=== PATIENT | female | born 1955 | race Caucasian/White ===

== ENCOUNTER → 2020-04-14 09:18 | Outpatient (CLI) | payer MEDICARE, SELFPAY ==
--- NOTE | ~2020-04-14 | MM_ITS ---
EXAMINATION: MM screening [facility] BI w fatmata HISTORY: Screening mammogram TECHNIQUE: Craniocaudal and mediolateral oblique 3-D tomosynthesis images were obtained and synthetic 2-D images were generated. CAD analysis was submitted and interpreted. COMPARISON: Comparison to multiple prior studies sequentially, with oldest reviewed study dated 02/02. BREAST PARENCHYMAL COMPOSITION: There are scattered areas of fibroglandular density. FINDINGS: There is no evidence of suspicious mass, calcification, or architectural distortion to sugg est malignancy in either breast. There has been no suspicious interval change. IMPRESSION: 1. No mammographic evidence of malignancy. 2. Recommend routine screening mammography in one year. BI-RADS Category 1: Negative Reviewed, dictated and finalized at location A.
== END ==
PROVIDERS: PCP Internal Medicine; Visit Provider Obstetrics & Gynecology
DX: Z12.31 Encounter for screening mammogram for malignant neoplasm of breast (principal)
CPT/HCPCS: 77063; 77067

== ENCOUNTER 2020-04-24 08:26 | Outpatient (CLI) | payer MEDICARE, SELFPAY ==
--- NOTE | 2020-04-24 | ECG_ITS ---
Measurements Intervals [place] Rate: 73 P: 53 WI: 152 QRS: -46 QRSD: 115 T: 90 QT: 395 QTc: 438 Interpretive Statements SINUS RHYTHM ATRIAL PREMATURE COMPLEX LEFT AXIS DEVIATION INCOMPLETE LEFT BUNDLE BRANCH BLOCK ANTEROSEPTAL INFARCT, AGE INDETERMINATE BORDERLINE ST-T WAVE ABNORMALITY- HIGH LATERAL LEADS BASELINE WANDER- V3 ABNORMAL ECG Electronically Signed On 04-24-2020 9:57:44 CDT by Tyson Jason D.O.
== END 2020-04-24 08:27 | disposition home or self-care (01) ==
PROVIDERS: PCP Internal Medicine; Visit Provider Internal Medicine
DX: I44.7 Left bundle-branch block, unspecified (principal)
CPT/HCPCS: 93005

== ENCOUNTER 2020-07-10 08:30 | Outpatient (CLI) | payer MEDICARE, SELFPAY ==
--- NOTE | 2020-07-10 | EST_ITS ---
Patient Info Name: Lisy Leal Age: 65 years : 1955 Gender: Female Ht: 63 in Wt: 125 lbs BSA: 1.59 m2 HR: 67 bpm BP: 128 / 68 mmHg Heart Rhythm: Sinus Rhythm Exam Date: 07/10/2020 11:42 AM Exam Location: [facility] Patient Status: Outpatient Admit Date: 07/10/2020 Staff Ordering Physician: Tyson Jason DO Braille Teacher: Kirill Weathers RDCS, RT Attending Provider: Tyson Jason DO Exercise Technologist: Hallie Melendez RDCS Exercise Physician: Tyson Jason DO Exam Type: CA stress echo Study Info Indications R55 - Syncope and collapse Treadmill exercise stress echocardiogram is performed. Summary 1. 1. Inconclusive Elpidio exercise stress test for ischemic ST changes by ECG criteria due to baseline LBBB. 2. 2. Good functional capacity, achieving 8 METs of workload. 3. 3. Appropriate HR response to exercise. 4. 4. Appropriate HR recovery at 1 minute post exercise. 5. 5. Negative stress echocardiogram for ischemia by wall motion analysis. 6. 6. Patient informed of the above results. Stress Echo Findings Left Ventricle Appropriate increase in LV endocardial thickening with systole. Appropriate augmentation of contractility with systole. No wall motion abnormality. Left Ventricle Normal LV systolic function, paradoxical septal motion due to LBBB. Protocol: Elpidio Rest HR: 67 bpm Peak HR: 154 bpm Rest Sys BP: 128 mmHg Peak Sys BP: 171 mmHg Max Pred HR: 154 bpm % Max Pred HR: 100 % Target HR: 131 bpm Max RPP: 26,334 bpm*mmHg Termination Reason: Reached target heart rate or workload Cardiac Symptoms: Shortness of breath Total Time: 7 min : 0 sec Rest Mueller BP: 68 mmHg Peak Mueller BP: 86 mmHg Resting ECG Sinus rhythm, LBBB. Stress ECG No ST changes. Arrhythmias None. Report Signatures Stress ECG Echo
--- NOTE | 2020-07-10 08:43 | ECHO_ITS ---
Patient Info Name: Lisy Leal Age: 65 years : 1955 Gender: Female Ht: 63 in Wt: 135 lbs BSA: 1.66 m2 BP: 143 / 93 mmHg Heart Rhythm: Sinus Rhythm Exam Date: 07/10/2020 10:19 AM Exam Location: [facility] Patient Status: Outpatient Admit Date: 07/10/2020 Staff Ordering Physician: Tyson Jason DO Hand Cementer: Marisa Mason RDCS Attending Provider: Tyson Jason DO Exam Type: CA echo doppler color flow Study Info Complete two-dimensional, color flow and Doppler transthoracic echocardiogram is performed. Summary 1. Left ventricular chamber dimension is normal. 2. Left ventricular systolic function is normal, estimated at 60-65%. 3. Left ventricular septal wall motion is abnormal with septal motion related to bundle branch block. 4. The left ventricular diastolic function is grade I diastolic dysfunction. 5. E/e' 14 is mildly elevated. 6. The mitral valve has mildly calcified annulus. 7. No pulmonary hypertension, estimated pulmonary arterial systolic pressure is 22 mmHg. 8. There is trace pulmonic regurgitation. Left Ventricle E/e' 14 is mildly elevated. Left ventricular chamber dimension is normal. Left ventricular systolic function is normal, estimated at 60-65%. Left ventricular septal wall motion is abnormal with septal motion related to bundle branch block. The left ventricular diastolic function is grade I diastolic dysfunction. Right Ventricle Right ventricular chamber dimension is normal. Right ventricular systolic function is normal. Left Atria Left atrial chamber dimension is normal. Right Atria Right atrial chamber dimension is normal. Aortic Valve The aortic valve is trileaflet. There is no aortic valve stenosis. There is no aortic valve regurgitation. Pulmonic Valve There is trace pulmonic regurgitation. Mitral Valve The mitral valve has mildly calcified annulus. There is no mitral valve stenosis. There is no mitral valve regurgitation. Tricuspid Valve There is no tricuspid valve regurgitation. No pulmonary hypertension, estimated pulmonary arterial systolic pressure is 22 mmHg. Pericardium/Pleural There is no pericardial effusion. Inferior Vena Cava Normal inferior vena cava with >50% collapse upon inspiration consistent with normal right atrial pressure, 5 mmHg. Aorta The aortic root size at the sinus of Valsalva is normal. Left Ventricular Outflow Tract Name Value Normal LVOT 2D LVOT Diameter 2.0 cm LVOT Doppler LVOT Peak Gradient 3 mmHg LVOT Mean Gradient 2 mmHg LVOT VTI 18 cm LVOT VTI/AV VTI Ratio 0.8 LVOT Stroke Volume 52 ml LVOT CO 3.6 l/min LVOT CI 2.2 l/min/m2 Mitral Valve Name Value Normal MV Doppler
== END 2020-07-10 08:31 | disposition home or self-care (01) ==
LOC: ANHCARD 08:33
PROVIDERS: PCP Internal Medicine; Visit Provider Internal Medicine Cardiovascular Disease
DX: R55 Syncope and collapse (principal)
CPT/HCPCS: 93306; 93351

== ENCOUNTER 2020-11-24 11:00 | Outpatient (RCR) | payer MEDICARE, SELFPAY ==
--- NOTE | 2020-10-27 10:20 | PTOPEVAL ---
PHYSICAL THERAPY EVALUATION AND PLAN OF CARE 10-27-2020 Thank you for referring Lisy Leal to [facility] [place] [facility] [place] She is scheduled to be seen for therapy? 1-2x/week for 4 weeks. Please review, sign, date and return this plan of care JAMILA. I agree with and certify that the following plan of care is medically necessary. Referring Physician Date Attending Provider: Ren Riggins PA-C *PT Outpatient Evaluation Start: 10/27/20 09:06 Document 10/27/20 09:06 PRADIP (Rec: 10/27/20 10:19 PRADIP [id number]) Outpatient Past Medical History Past Medical History Source of Past Medical History Patient Neurological History Hx Neurological Disorders No Significant History Cardiovascular History Hx Hypertension Yes: on meds Hx Other Cardiac Disorders Yes: passed out 3x- EKG,stress test,treadmill test negative Respiratory History Hx Other Respiratory Disorders Yes: sinus issues- seasonal allergies; Gastrointestinal History Hx Other Gastrointestinal Disorders Yes: take daily meds for constipation Genitourinary History Hx Genitourinary Disorders No Significant History Musculoskeletal History Hx Back Pain Yes: lumbar bulging disc Hematological History Hx Hematological Disorders No Significant History Endocrine History Hx Hypothyroidism Yes: meds HEENT History Hx Other HEENT Disorders Yes: tinnitis B ears > 20 yrs; L high pitch sqeal in ear Evaluation Information Problem Diagnosis vertigo Onset Sep 28, 2020 Subjective Information onset without incident Query Text:As Reported By Patient/ Family Prior Level of Function Activity Level (Last 3 Months) 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 Home supplements- fish oil, vit D Meds Must Be Re-entered With Each Visit. magnesium, garlic, multi vitamin, aspirin, tumeric, Home Setting Home Type House Living Situation
--- NOTE | 2020-11-24 11:43 | PTOPEVAL ---
PHYSICAL THERAPY DISCHARGE 11-24-20 Mrs. Leal has improved and the PT goals were achieved; Refer to the clinical summary below for a comparison to the initial evaluation. Discharge PT services. Thank you for referring Lisy Leal to [facility].? Please review, sign, date and return this discharge JAMILA. I agree with and certify that the following plan of care is medically necessary. Referring Physician Date Attending Provider: Ren Riggins PA-C PT Outpatient Discharge Document 11/24/20 11:05 PRADIP (Rec: 11/24/20 11:43 PRADIP [id number]) Subjective Information Lisy reports: feeling is Query Text:As Reported By Patient/ lightheaded, no longer have Family dizzy spells; over the weekend , reaching up overhead to cabinet with looking up had lightheadedness; doing Loaiza Daroff at home; continues to have allergy and sinus issues- when wake up in the morning, cough, sneeze and nasal congestion; to talk to pharmacist about over the counter med to manage the symptoms; does better if move slower; has less ringing in her L ear after do the maneuver; has learned to move her head slower, allow for head to clear when get up and more aware of it; has used her inversion table for her back 2x and did not have any problems. Dizziness Handicap Index score of 10; Pain Assessment Timing of Pain Assessment Timing of Pain Assessment Assessment Self Report Self Report Pain Level 0 Pain Score Pain Score 0: Self Report Vestibular Evaluation Vestibular Testing Vestibular Testing Comments picking an item up off floor no s/s standing and looking up to the ceiling no s/s 360' turn to R /L- no s/s supine to sit postion change no s/s, but reports sometimes it does bother her, first thing in the morning; walking with ball in B UE 25': head and eye movements: up/ down, R/L and diagonal; ball
== END 2020-11-24 14:36 | disposition home or self-care (01) ==
LOC: ANHPT 11:00
PROVIDERS: PCP Internal Medicine; Visit Provider Physician Assistant
DX: R42 Dizziness and giddiness (principal)
CPT/HCPCS: 97110; 97161

== ENCOUNTER → 2021-04-16 10:04 | Outpatient (CLI) | payer MEDICARE, SELFPAY ==
--- NOTE | ~2021-04-16 | MM_ITS ---
EXAMINATION: MM screening [facility] BI w fatmata HISTORY: Screening TECHNIQUE: Craniocaudal and mediolateral oblique 3-D tomosynthesis images were obtained and synthetic 2-D images were generated. CAD analysis was submitted and interpreted. COMPARISON: Comparison to multiple prior studies sequentially, with oldest reviewed study dated 11/2014. BREAST PARENCHYMAL COMPOSITION: There are scattered areas of fibroglandular density. FINDINGS: There is no evidence of suspicious mass, calcification, or architectural distortion to sugg est malignancy in either breast. There has been no suspicious interval change. IMPRESSION: 1. No mammographic evidence of malignancy. 2. Recommend routine screening mammography in one year. BI-RADS Category 1: Negative Reviewed, dictated and finalized at location A.
== END ==
DX: Z12.31 Encounter for screening mammogram for malignant neoplasm of breast (principal)
CPT/HCPCS: 77063; 77067

== ENCOUNTER 2022-02-08 10:27 | Outpatient (CLI) | payer MEDICARE, SELFPAY ==
--- NOTE | ~2022-02-08 | XR_ITS ---
XR lumbar spine 6V w bending DATE: 02/08/2022 10:50 INDICATION: Low back pain, bilateral leg burning TECHNIQUE: Flexion and extension lateral views. AP, lateral, bilateral oblique and coned lateral lumb osacral views COMPARISON: None FINDINGS: Incidentally noted are multiple faceted calcified gallstones overlying the right upper quad rant. There is mild dextroscoliosis of the lower thoracic and upper lumbar spine. There is mild to moderate degenerative disc disease at L2-3, mild degenerative disease at L3-4 and mo derately severe degenerative disc disease at L5-S1. There is degenerative change at the apophyseal joints with associated minimal grade 1 anterolisthesis at L4-5. No spondylolysis. No fracture or bone destruction. The included lower thoracic and lumbar pedicles are intact. The sacroiliac joints are intact. IMPRESSION: Multilevel degenerative disc disease, most pronounced at L5-S1 Degenerative change at the apophyseal joints, with associated grade 1 anterolisthesis at L4-5, stable in flexion and extension Cholelithiasis Reviewed, dictated and finalized at location A. IMPRESSION: Multilevel degenerative disc disease, most pronounced at L5-S1 Degenerative change at the apophyseal joints, with associated grade 1 anterolis thesis at L4-5, stable in flexion and extension Cholelithiasis
== END 2022-02-08 10:28 | disposition home or self-care (01) ==
LOC: ANHIMG 10:33
PROVIDERS: PCP Internal Medicine; Visit Provider Physician Assistant
DX: K80.20 Calculus of gallbladder without cholecystitis without obstruction (principal); M51.37 Other intervertebral disc degeneration, lumbosacral region
CPT/HCPCS: 72114

== ENCOUNTER → 2022-02-17 09:31 | Outpatient (CLI) | payer MEDICARE, SELFPAY ==
--- NOTE | ~2022-02-17 | MR_ITS ---
EXAMINATION: MR lumbar spine wo con DATE: 02/17/2022 10:39 INDICATION: Sciatic, unspecified side. TECHNIQUE: Magnetic resonance imaging (MRI) of the lumbar spine was performed without intravenous con trast. Sequences included sagittal T2-weighted FSE, sagittal T2-weighted FS FSE, sagittal T1-weighted FSE, and axial T2-weighted FSE. COMPARISON: Lumbar spine radiographs 02/08/2022, lumbar spine MRI 05/17/2009 FINDINGS: There is 8 degrees levocurvature of lumbar spine. There is mild chronic anterior wedging of T11-L1 vertebral bodies. There is 3 mm anterolisthesis of L4 on L5. There is moderately decreased di sc height at T11-T12, mildly decreased disc height at T12-L1, and moderately decreased disc height at L2-L3 and L5-S1 with endplate remodeling. The distal spinal cord signal intensity is normal. The con us medullaris is at L1. The following disc levels are specifically discussed: L1-L2: The disc is bulging. There is mild bilateral facet joint osteoarthritis. There is mild bilater al neural foraminal stenosis. There is mild central canal stenosis. L2-L3: The disc is bulging. There is mild bilateral facet joint osteoarthritis. There is mild bilater al neural foraminal stenosis. There is mild central canal stenosis. L3-L4: The disc is bulging and has an annular fissure. There is mild bilateral facet joint osteoarthr itis. There is mild bilateral neural foraminal stenosis. There is mild central canal stenosis. L4-L5: The disc is bulging. There is severe bilateral facet joint osteoarthritis. There is mild bilat eral neural foraminal stenosis. There is mild central canal stenosis. L5-S1: The disc is bulging and has an annular fissure. There is moderate bilateral facet joint osteoa rthritis. There is mild right and moderate left neural foraminal stenosis. There is mild central fatou l stenosis. IMPRESSION: 1. Moderate lumbar spondylosis, worsened from 05/17/2009. Reviewed, dictated and finalized at location B.
== END ==
PROVIDERS: PCP Internal Medicine; Visit Provider Physician Assistant
DX: M47.817 Spondylosis without myelopathy or radiculopathy, lumbosacral region (principal); M48.07 Spinal stenosis, lumbosacral region; M54.30 Sciatica, unspecified side
CPT/HCPCS: 72148

== ENCOUNTER → 2022-05-03 10:49 | Outpatient (CLI) | payer MEDICARE, SELFPAY ==
--- NOTE | ~2022-05-03 | MM_ITS ---
EXAMINATION: MM screening [facility] BI w fatmata HISTORY: Screening TECHNIQUE: Craniocaudal and mediolateral oblique 3-D tomosynthesis images were obtained and synthetic 2-D images were generated. CAD analysis was submitted and interpreted. COMPARISON: Comparison to multiple prior studies sequentially, with oldest reviewed study dated 04/2016. BREAST PARENCHYMAL COMPOSITION: There are scattered areas of fibroglandular density. FINDINGS: There is no evidence of suspicious mass, calcification, or architectural distortion to sugg est malignancy in either breast. There has been no suspicious interval change. IMPRESSION: 1. No mammographic evidence of malignancy. 2. Recommend routine screening mammography in one year. BI-RADS Category 1: Negative Reviewed, dictated and finalized at location A.
== END ==
PROVIDERS: PCP Internal Medicine
DX: Z12.31 Encounter for screening mammogram for malignant neoplasm of breast (principal)
CPT/HCPCS: 77063; 77067

== ENCOUNTER → 2023-05-05 10:06 | Outpatient (CLI) | payer MEDICARE, SELFPAY ==
--- NOTE | ~2023-05-05 | MM_ITS ---
EXAMINATION: MM screening [facility] BI w fatmata HISTORY: Screening TECHNIQUE: Craniocaudal and mediolateral oblique 3-D tomosynthesis images were obtained and synthetic 2-D images were generated. CAD analysis was submitted and interpreted. COMPARISON: Comparison to multiple prior studies sequentially, with oldest reviewed study dated 02/26. BREAST PARENCHYMAL COMPOSITION: Breast composed of scattered areas of fibroglandular density FINDINGS: There is no evidence of suspicious mass, calcification, or architectural distortion to sugg est malignancy in either breast. There has been no suspicious interval change. IMPRESSION: 1. No mammographic evidence of malignancy. 2. Recommend routine screening mammography in one year. BI-RADS Category 1: Negative Reviewed, dictated and finalized at location A.
== END ==
PROVIDERS: PCP Internal Medicine
DX: Z12.31 Encounter for screening mammogram for malignant neoplasm of breast (principal)
CPT/HCPCS: 77063; 77067

== ENCOUNTER → 2023-08-16 14:57 | Outpatient (CLI) | payer MEDICARE, SELFPAY ==
--- NOTE | ~2023-08-16 | XR_ITS ---
XR knee RT 3V 08/16/2023 15:16 Indication: Right knee pain Procedure: 3 views right knee Comparison: No prior studies for comparison. Findings: There is anatomic alignment. No fracture, subluxation or dislocation. Mild patellofemoral c ompartment osteoarthritis. Small joint effusion. Impression: 1: Mild patellofemoral compartment osteoarthritis. Reviewed, dictated and finalized at location A. Impression: 1: Mild patellofemoral compartment osteoarthritis.
== END ==
PROVIDERS: PCP Physician Assistant; Visit Provider Physician Assistant
DX: M17.11 Unilateral primary osteoarthritis, right knee (principal)
CPT/HCPCS: 73562

== ENCOUNTER 2024-04-14 10:24 | Emergency (ER) | payer MEDICARE, SELFPAY ==
--- NOTE | 2024-04-14 10:38 | ED.GENADULT ---
HPI - General Adult General Chief complaint: Extremity Problem,Nontraumatic Stated complaint: left side shoulder pain into neck Time Seen by Provider: 04/14/24 10:40 Source: patient, RN notes reviewed and old records reviewed Mode of arrival: ambulatory Limitations: no limitations History of Present Illness HPI narrative: Patient presents today requesting a refill of Flexeril. She reports that she had a pacemaker placed earlier this month, is now in cardiac rehab. She reports that she has been having some muscle spasms to the right neck and shoulder. She states that she went to her crew mess attendant earlier this week, she reports that he told her she could take Flexeril. She had 6 pills at home, she reports that her crew mess attendant declined to refill this for her during her visit. She is requesting that I refill this medication today. She reports that is the reason she came in ?to get a refill? Related Data Home Medications Medication Instructions Recorded Confirmed estradiol-norethindrone acet 1 1 tablet PO DAILY 06/17/20 04/14/24 mg-0.5 mg tablet aspirin 81 mg tablet,delayed 81 mg PO DAILY 04/27/21 04/14/24 release (Adult Low Dose Aspirin) diphenhydramine HCl 25 mg capsule 25 mg PO QHS 04/27/21 04/14/24 (Allergy (diphenhydramine)) garlic 1,000 mg capsule 1,000 mg PO DAILY 04/27/21 04/14/24 [id number] 200 1 tablet PO DAILY 04/27/21 04/14/24 mg-biotin 450 mcg-vit D3 400 unit-FA tablet (Biotin Plus-Calcium and Vit D3) multivitamin 1 tablet PO DAILY 04/27/21 04/14/24 omega-3 fatty acids 1,000 mg 1,000 mg PO DAILY 04/27/21 04/14/24 capsule (Fish Oil Concentrate) polyethylene glycol 3350 17 17 g PO DAILY 04/27/21 04/14/24 gram/dose oral powder (SmoothLax) mecobalamin (vitamin B12) 1,000 1,000 mcg PO DAILY 11/05/22 04/14/24 mcg chewable tablet pyridoxine (vitamin B6) 100 mg 50 mg PO DAILY 11/05/22 04/14/24 tablet gabapentin 600 mg tablet 900 mg PO DAILY 06/22/23 04/14/24 turmeric 400 mg capsule 720 mg PO DAILY 06/22/23 04/14/24 apixaban 5 mg tablet (Eliquis) 5 mg PO BID 04/14/24 04/14/24 clopidogrel 75 mg tablet 75 mg PO DAILY 04/14/24 04/14/24 metoprolol succinate 25 mg 25 mg PO DAILY 04/14/24 04/14/24 tablet,extended release 24 hr rosuvastatin 40 mg tablet 40 mg PO HS 04/14/24 04/14/24 spironolactone 25 mg tablet 12.5 mg PO DAILY 04/14/24 04/14/24 Allergies Allergy/AdvReac Type Severity Reaction Status Date / Time ciprofloxacin Allergy Unknown unknown Verified 04/14/24 10:27 diphenhydramine Allergy Unknown unknown Verified 04/14/24 10:27 metronidazole Allergy Unknown unknown Verified 04/14/24 10:27 Review of Systems Review of Systems: All systems reviewed & are unremarkable except as noted in HPI and below Constitutional: Constitutional: Reports no additional constitutional complaints ENT: Reports system reviewed and no additional complaints, except as documented Cardiovascular: Cardiovascular: Reports no additional cardiovascular complaints Respiratory: Respiratory: Reports no additional respiratory complaints Gastrointestinal: Gastrointestinal: Reports no additional gastrointestinal complaints [facility] Social History Social History Smoking status: Never smoker Second hand tobacco smoke exposure: No Alcohol intake: current Lack of Transportation: No Lack of Food: Never True Current Housing: I Have Housing Concerned About Future Housing: No Difficulty Paying Gas/Electric Bills: No Difficulty Paying for Meds: No Currently Unemployed: No Education: High School Diploma/GED Difficulty w/ Childcare or Family Care: No Comments At the time of my signature, I reviewed and agree with the nursing past medical, surgical, social, and family history. There is no relevant family history pertinent to the patient complaint. Exam Const: General: alert, awake and other (Declined full exam) Orientation/consciousne
[2024-04-14 10:39] VITALS: BP 149/79; PULSE 87; RESP 16; TEMP 37.3; O2SAT 98
== END 2024-04-14 10:52 | disposition left against medical advice (07) ==
PROVIDERS: Emergency Provider Nurse Practitioner Family
DX: M25.512 Pain in left shoulder (principal); Z79.82 Long term (current) use of aspirin; Z79.01 Long term (current) use of anticoagulants; I10 Essential (primary) hypertension; I25.2 Old myocardial infarction; Z95.0 Presence of cardiac pacemaker; K21.9 Gastro-esophageal reflux disease without esophagitis; E03.9 Hypothyroidism, unspecified; Z95.5 Presence of coronary angioplasty implant and graft
CPT/HCPCS: 99212; G0463

== ENCOUNTER 2024-05-08 12:15 | Outpatient (CLI) | payer MEDICARE, SELFPAY ==
--- NOTE | ~2024-05-08 | MM_ITS ---
EXAMINATION: MM screening [facility] BI w fatmata HISTORY: Screening TECHNIQUE: Craniocaudal and mediolateral oblique 3-D tomosynthesis images were obtained and synthetic 2-D images were generated. CAD analysis was submitted and interpreted. COMPARISON: Comparison to multiple prior studies sequentially, with oldest reviewed study dated 03/04. BREAST PARENCHYMAL COMPOSITION: Not dense: There are scattered areas of fibroglandular density. FINDINGS: There is no evidence of suspicious mass, calcification, or architectural distortion to sugg est malignancy in either breast. There has been no suspicious interval change. IMPRESSION: 1. No mammographic evidence of malignancy. 2. Recommend routine screening mammography in one year. BI-RADS Category 1: Negative Reviewed, dictated and finalized at location B.
== END 2024-05-08 12:16 ==
PROVIDERS: PCP Internal Medicine
DX: Z12.31 Encounter for screening mammogram for malignant neoplasm of breast (principal)
CPT/HCPCS: 77063; 77067

== ENCOUNTER 2024-07-10 16:35 | Outpatient (CLI) | payer MEDICARE, SELFPAY ==
--- NOTE | ~2024-07-10 | US_ITS ---
EXAMINATION: US thyroid DATE: 07/10/2024 17:15 INDICATION: Abnormal finding on other diagnostic imaging TECHNIQUE: Multiple ultrasound images of the thyroid were obtained. COMPARISON: None. FINDINGS: The right thyroid lobe measures 2.9 x 1.0 x 0.8 cm. The left thyroid lobe measures 1.9 x 0.9 x 0.8 c m. There is increased thyroid echogenicity and coarsened echotexture with normal vascular flow on co yaya Doppler. 6 mm wide than tall very hypoechoic potentially anechoic nodule was smooth margins and w ithout echogenic foci at the lateral margin of the right thyroid lobe which could represent either a cystic TI RADS 1 nodule or a solid TI RADS 4 nodule which would still remain well below threshold for either biopsy or follow-up. Alternatively this could represent a normal sized lymph node along the p eriphery of the thyroid. IMPRESSION: 1. Small echogenic thyroid with coarsened echotexture which suggests sequela of chronic thyroiditis. 2. 6 mm right thyroid nodule, unclear whether TI RADS 1 or TI RADS 4, but even in the latter case sti ll well below size criteria for either biopsy or follow-up. Alternatively this could represent a norm al sized lymph node. Reviewed, dictated and finalized at location A. IMPRESSION: 1. Small echogenic thyroid with coarsened echotexture which suggests sequela of chronic thyroiditis. 2. 6 mm right thyroid nodule, unclear whether TI RADS 1 or TI RADS 4, but even in the latter case still well below size criteria for either biopsy or follow-u p. Alternatively this could represent a normal sized lymph node.
== END 2024-07-10 16:36 | disposition home or self-care (01) ==
LOC: ANHIMG 16:37
PROVIDERS: PCP Internal Medicine; Visit Provider Internal Medicine
DX: R93.89 Abnormal findings on diagnostic imaging of other specified body structures (principal); E04.1 Nontoxic single thyroid nodule
CPT/HCPCS: 76536

== ENCOUNTER 2025-01-23 14:30 | Outpatient (RCR) | payer MEDICARE, SELFPAY | END 2025-04-24 13:16 | disposition home or self-care (01) | LOC: ANHDMC 14:30 | PROVIDERS: PCP Internal Medicine; Visit Provider Internal Medicine | DX: E11.9 Type 2 diabetes mellitus without complications (principal); Z71.89 Other specified counseling | CPT/HCPCS: G0108; G0109 ==

== ENCOUNTER 2025-04-17 09:03 | Outpatient (CLI) | payer MEDICARE, SELFPAY ==
--- NOTE | ~2025-04-17 | XR_ITS ---
Clinical Indication: Chest pain PA and lateral views of the chest: Comparison: None Findings: The lungs are clear, without evidence of focal consolidation or pleural effusion. Cardiome diastinal silhouette is within normal limits, with pacemaker device. Bones and soft tissues are unrem arkable. Impression: Clear lungs. Pacemaker device. Reviewed, dictated and finalized at location . Impression: Clear lungs. Pacemaker device.
--- OUTSIDE RECORDS SUMMARY | 2025-04-17 09:12 | XMS_ITS | Clinical Summary ---
Author Organization [facility] Address [address] [place] [id number] Care Team Providers Care Brass Pourer Name Role Phone Unavailable Primary Care Provider Unavailabl e Social History Tobacco Use Types Packs/Day Years Used Date Smoking Tobacco: Never Assessed Comments Unknown Sex and Gender Information Value Date Recorded Sex Assigned at Not on file Legal Sex Female 7:16 PM CDT Gender Identity Not on file Sexual Orientation Not on file Plan of Treatment Health Maintenance Due Date Last Done Comments Colorectal Cancer Screening Colonoscopy (10 Years) 1955 Hepatitis C 1972 DTaP, Tdap and Td Vaccines ( 1 - Tdap) 1973 Mammogram Screening 1994 Pneumococcal Vaccine: 50+ Ye ars (1 of 1 - PCV) 2004 Zoster Vaccines (1 of 2) 2004 Dexa Scan (General) 2019 COVID-19 Vaccine (2023-2 5 season) 2024 RSV Immunization or 60+ Years (1 - 1-dose 75+ series) 2029 Meningococcal B Vaccine Aged Out No l onger eligible based on patient's age to complete this topic Meningococcal Vaccine Aged Out No timo hany eligible based on patient's age to complete this topic RSV Immunizations Under 20 Months Aged Out No longer eligible based on patient's age to complete this topic
--- OUTSIDE RECORDS SUMMARY | 2025-04-17 09:13 | XMS_ITS | Referral Summary ---
Author Organization [facility] Address [address] [place] [address] Care Team Providers Care Manufacturing Lead Name Role Phone Gabriel Weldon DO Primary Care Provider Encounters Date Type Department Care Team Description 04/10/2025 Telephone [facility] Cardiology [address] [facility] [address] [place] [address] Ba Mae MD indigestion 04/09/2025 Telephone [facility] Medical [facility] Nephrology at [address] [phone] Peter Bucio MD 03/29/2025 Orders Only [facility] Cardiology [address] [place] [address] [phone] Miscellaneous, Not In File 03/29/2025 8:00 AM CDT Ancillary Procedure [facility] Cardiology [address] [place] [address] [phone] Heart block AV second degree; Pacemaker 02/24/2025 7:56 AM CDT - 03/01/2025 3:13 PM CDT Hospital Encounter [facility] [address] [address] Danis Joe DO Shaukat, Bushra, MD Pham, Kevin, DO Potluri, Sobhana Krishna, MD RUQ pain (Primary Dx); Intractable nausea and vomiting; Diagnosis unknown Discharge Disposition: Discharge to home or self care 02/28/2025 10:06 AM CDT Anesthesia [place] [facility] [address] [place] [id number] Barak Gibbs, Oniel Martinez CRNA 02/28/2025 8:00 AM CDT - 02/28/2025 10:[address] [facility] [place] [address] [place] [address] Heri Parikh MD LAPAROSCOPIC CHOLECYSTECTOMY, INDOCYANINE GREEN 02/15/2025 Results Follow-Up [facility] Cardiology [facility] [facility] [address] [place] [address] Ba Mae MD CBC with auto differential 01/22/2025 2:30 PM CDT Office Visit [facility] Cardiology [address] [facility] [address] [place] [address] Ba Mae MD NSTEMI (non-ST elevated myocardial infarction) (HCC) (Primary Dx); Ischemic cardiomyopathy; Coronary artery disease involving moapa coronary artery of moapa heart without angina pectoris; Essential hypertension; S/P coronary artery stent placement; Other iron deficiency anemia from Last 3 Months Allergies Active Allergy Reactions Criticality Noted Date Comments Ciprofloxacin Nausea only Low 02/25/2024 Diphenhydramine Hives,Other (See comments) Medium 12/16 Hives Metronidazole Vomiting Low 03/18/2024 Vancomycin Rash Medium 03/19/2024 Medications polyethylene glycol (MIRALAX) 17 gram/dose bulk powder Take 17 g by mouth daily Active gabapentin (NEURONTIN) 600 mg tablet Take 1 tablet (600 mg total) by mouth 3 (three) times a day Active levothyroxine (SYNTHROID) 75 mcg tablet Take 50 mcg by mouth channel worker before breakfast Active lisinopriL (PRINIVIL,ZESTRI L) 10 mg tablet Take 1 tablet (10 mg total) by mouth daily 30 tablet 11 Active Additional Information Patient taking differently: 2.5 mgoral Daily, Reported on 02/24/2025 acetaminophen (TYLENOL) 325 mg tablet Take 2 tablets (650 mg total) by mouth every 4 (four) hours as needed for pain, headaches or fever 30 tablet 1 4 Active rosuvastatin (CRESTOR) 40 mg tablet Take 1 tablet (40 mg total) by mouth nightly 90 tablet [address] (PROTONIX) 40 mg EC tablet Take 1 tablet (40 mg total) by mouth daily 90 tablet 3 4 05/28/20 25 Active estradioL (ESTRACE) 0.01 % (0.1 mg/gram) vaginal cream Insert 2 g into the vagina daily 4 Active metFORMIN (GLUCOPHAGE) 500 mg tablet 5 Active metoprolol XL (TOPROL-XL) 25 mg extended release tabletIndication s:Ischemic cardiomyopathy,C oronary artery disease involving moapa coronary artery of moapa heart without angina pectoris,Essenti al hypertension Take 1 tablet (25 mg total) by mouth nightly 90 tablet 3 5 01/23/20 26 Active clopidogreL (PLAVIX) 75 mg tablet Take 1 tablet (75 mg total) by mouth daily 90 tablet 3 5 01/23/20 26 Active citalopram (CeleXA) 10 mg tablet Take 1 tablet (10 mg total) by mouth daily Active HYDROcodone-acet aminophen (NORCO) 5-325 mg per tabletIndication s:Pain Take 1 tablet by mouth every 6 (six) hours as needed for pain 7 tablet 5 Active Active Problems Problem Noted Date Diagnosed Date Intractable nausea and vomiting 02/26/2025 RUQ pain 02/24/2025 Iron deficiency anemia 01/22/2025 Pacemaker 06/29/2024 Dyspepsia 06/05/2024 Genitourinary syndrome of menopause 05/01/2024 S/P coronary artery stent placement 04/10/2024 Second degree AV block, Mobitz type II 4 Hypothyroidism 03/18/2024 Pseudoaneurysm following procedure 03/02/2024 Multiple subsegmental pulmon kaleb emboli without acute cor pulmonale 03/02/2024 Groin hematoma, subsequent encounter 03/02/2024 Coronary artery disease invo lving moapa coronary artery of moapa heart without angina pectoris 03/02/2024 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 03/02/2024 Hyponatremia 03/02/2024 Lower leg DVT (deep venous thromboembolism), acu te, right 03/02/2024 Dyslipidemia 02/28/2024 Ischemic cardiomyopathy 02/28/2024 NSTEMI (non-ST elevated myocardial infarction) 0 02/25/2024 Reduced libido 02/28/2022 Candidiasis of vagina 02/24/2022 Menopausal symptom 06/06/2018 Overview (06/05/2024): Post-menopausal state; Location: None Progress: Stable Added By: Selvin Howe Add to Current Problems: NO ProblemStatus: Resolve Social History Tobacco Use Types Packs/Day Years Used Date Smoking Tobacco: Never Cigarettes Vaping Smokeless Tobacco: Never Tobacco Cessation:Counseling Given: Not Answered Alcohol Use Standard Drinks/Week Comments Yes 0 (1 standard drink = 0.6 oz pur e alcohol) social 1 a week [facility] [employer] Answer Date Recorded In the past 12 months has [employer], gas, oil, or water [employer] threatened to shut off services in your home? No 02/25/2025 Social Connection and Isolat ion Panel [NHANES] Answer Date Recorded In a typical week, how many times do you talk on the phone with family, friends, or neighbors? More than three times a week 02/25/2025 How often do you get togethe r with friends or relatives? More than three times a week 02/25/2025 How often do you attend [facility] or [facility] services? More than 4 times per year 02/25/2025 Do you belong to any clubs o r organizations such as religious groups, unions, fraternal or athletic groups, or school groups? Yes 02/25/2025 How often do you attend meet ings of the clubs or organizations you belong to? Never 02/25/2025 Are you , , di vorced, , never , or living with a partner? 02/25/2025 AUDIT-C Answer Date Recorded Q1: How often do you have a drink containing alc ohol? 2-4 times a month 02/24/2025 Q2: How many drinks containi ng alcohol do you have on a typical day when you are drinking? 1 or 2 02/24/2025 Q3: How often do you have si x or more drinks on one occasion? Never 02/24/2025 Overall Financial Resource Strain (CARDIA) Answe r Date Recorded How hard is it for you to pa y for the very basics like food, housing, medical care, and heating? Not hard at all 02/25/2025 Hunger Vital Sign Answer Date Recorded Within the past 12 months, y ou worried that your food would run out before you got the money to buy more. Never true 02/26/20 25 Within the past 12 months, t he food you bought just didn't last and you didn't have money to get more. Never true 02/25/2025 PRAPARE - Transportation Answer Date Re corded In the past 12 months, has l ack of transportation kept you from medical appointments or from getting medications? No 02/14 In the past 12 months, has l ack of transportation kept you from meetings, work, or from getting things needed for daily living? No 02/25/2025 Housing Stability Vital Sign Answer Mirza e Recorded In the last 12 months, was t here a time when you were not able to pay the mortgage or rent on time? No 02/27/2024 In the last 12 months, how many places have you lived? 1 02/27/2024 In the last 12 months, was t here a time when you did not have a steady place to sleep or slept in a penitentiary (including now)? No 02/27/2024 Housing Stability Vital Sign Answer Mirza e Recorded In the last 12 months, was t here a time when you were not able to pay the mortgage or rent on time? No 02/25/2025 In the past 12 months, how m any times have you moved where you were living? 0 02/25/2025 At any time in the past 12 m [facility], were you homeless or living in a penitentiary (including now)? No 02/25/2025 Personal Safety Answer Date Recorded Have you ever been in or are you currently in a harmful physical or emotional relationship or is someone making you feel afraid or unsafe? 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 Gender Identity Female 04/18/2024 5:52 PM CDT Sexual Orientation Not on file Last Filed Vital Signs Vital Sign Reading Time Taken Comments Blood Pressure 112/84 03/01/2025 11:41 AM CDT Pulse 70 03/01/2025 11:41 AM CDT Temperature 36.6 C (97.9 F) 03/01/2025 11:41 AM CDT Respiratory Rate 20 03/01/2025 11:41 AM CDT Oxygen Saturation 99% 03/01/2025 11:41 AM CDT Inhaled Oxygen Concentration - - Weight 54.1 kg (119 lb 4.8 oz) 03/01/2025 6:05 A M CDT Height 162.6 cm (5' 4.02) 02/26/2025 9:00 PM CD T Body Mass Index 20.47 02/26/2025 9:00 PM CDT Plan of Treatment Not on file Medical Devices Implanted Type Area Sponsorship Manager Device Identifier Shelf Expiration Date Model / Serial / Lot [employer] Assurity Mri [id number] 2 Chamber Is-1 Connector Thk6mm Pacemaker [id number] - [id number] - [id number] Implanted:Qty: 1 on 03/19/2024 by Kobe Martinez MD at [facility] Pacemaker [employer] [id number] 06/16/2025 [id number] / [id number] / Medtronic Card Vasc Surgery 2.25 X 38mm [place] Nye Rx Coronary Stent [id number] - [id number] Implanted:Qty: 1 on 02/25/2024 by Mathew Perez MD at [facility] Medtronic Card Vasc Surgery 06/23/2026 [id number] / / [id number] [employer] [place] Angio-Seal Vip [place]-Plus 8fr .038in 70cm Hemostatic Latex Free [id number] - [id number] Implanted:Qty: 1 on 02/25/2024 by Mathew Perez MD at [facility] [employer] 09/19/2024 [id number] / / [id number] Med[employer]onic Inc Tyrx Absorbable Antibacterial Envelope-Med 2.7x2.5in [id number] - [id number] Implanted:Qty: 1 on 03/19/2024 by Kobe Martinez MD at [facility] [employer] Inc [id number] / / Herring Vascular Active Fixation Steroid Eluting Latex Free Sterile Right Atrium Ventricle Ultipace 52cm [id number] - [id number] - [id number] Implanted:Qty: 1 on 03/19/2024 by Kobe Martinez MD at [facility] [employer] [id number] 10/16/2026 LPA 16/03 2 / [id number] / [employer] Active Fixation Steroid Eluting Latex Free Sterile Right Atrium Ventricle Ultipace 58cm [id number]/58 - [id number] - [id number] Implanted:Qty: 1 on 03/19/2024 by Kobe Martniez MD at [facility] [employer] [id number] 11/16/2026 LPA16/03 8 / [id number] / Procedures Procedure Name Priority Date/Time Associated Diagnosis Comments RENAL FUNCTION PANEL Routine 04/09/2025 7:32 AM CDT Hyponatremia DEVICE CHECK - REMOTE Routine 03/29/2025 2:00 AM CDT POCT GLUCOSE DEVICE Routine 03/01/2025 12:23 PM CDT POCT GLUCOSE DEVICE Routine 03/01/2025 11:42 AM CDT POCT GLUCOSE DEVICE Routine 03/01/2025 7 :37 AM CDT EGFR Routine 03/01/2025 5:25 AM CDT DIFFERENTIAL AUTO Routine 03/01/2025 5:2 5 AM CDT CBC WITH AUTO DIFFERENTIAL Routine 03/01/2025 5:25 AM CDT COMPREHENSIVE METABOLIC PANEL Routine 03/01/2025 5:25 AM CDT POCT GLUCOSE DEVICE Routine 02/28/2025 7 :44 PM CDT POCT GLUCOSE DEVICE Routine 02/28/2025 4 :34 PM CDT POCT GLUCOSE DEVICE Routine 02/28/2025 12:30 PM CDT POCT GLUCOSE DEVICE Routine 02/28/2025 12:01 PM CDT SURGICAL PATHOLOGY Routine 02/28/2025 11:09 AM CDT Diagnosis unknown NM AN PROCEDURE PLACEHOLDER Routine 02/28/2025 10:30 AM CDT NM AN ELECTIVE ENDOTRACHEAL AIRWAY Routine 02/28/2025 10:30 AM CDT LAPAROSCOPIC CHOLECYSTECTOMY 02/28/2025 10:06 AM CDT POCT GLUCOSE DEVICE Routine 02/28/2025 9 :09 AM CDT POCT GLUCOSE DEVICE Routine 02/28/2025 7 :43 AM CDT EGFR Routine 02/28/2025 6:42 AM CDT DIFFERENTIAL AUTO Routine 02/28/2025 6:4 2 AM CDT CBC WITH AUTO DIFFERENTIAL Routine 02/28/2025 6:42 AM CDT COMPREHENSIVE METABOLIC PANEL Routine 02/28/2025 6:42 AM CDT POCT GLUCOSE DEVICE Routine 02/28/2025 4 :05 AM CDT POCT GLUCOSE DEVICE Routine 02/28/2025 12:02 AM CDT POCT GLUCOSE DEVICE Routine 02/27/2025 8 :23 PM CDT POCT GLUCOSE DEVICE Routine 02/27/2025 5 :14 PM CDT POCT GLUCOSE DEVICE Routine 02/27/2025 11:33 AM CDT POCT GLUCOSE DEVICE Routine 02/27/2025 7 :32 AM CDT EGFR Routine 02/27/2025 5:18 AM CDT DIFFERENTIAL AUTO Routine 02/27/2025 5:1 8 AM CDT CBC WITH AUTO DIFFERENTIAL Routine 02/27/2025 5:18 AM CDT COMPREHENSIVE METABOLIC PANEL Routine 02/27/2025 5:18 AM CDT POCT GLUCOSE DEVICE Routine 02/27/2025 4 :02 AM CDT POCT GLUCOSE DEVICE Routine 02/26/2025 11:55 PM CDT POCT GLUCOSE DEVICE Routine 02/26/2025 8 :25 PM CDT POCT GLUCOSE DEVICE Routine 02/26/2025 4 :59 PM CDT POCT GLUCOSE DEVICE Routine 02/26/2025 11:17 AM CDT POCT GLUCOSE DEVICE Routine 02/26/2025 7 :15 AM CDT EGFR Routine 02/26/2025 5:46 AM CDT DIFFERENTIAL AUTO Routine 02/26/2025 5:4 6 AM CDT CBC WITH AUTO DIFFERENTIAL Routine 02/26/2025 5:46 AM CDT COMPREHENSIVE METABOLIC PANEL Routine 02/26/2025 5:46 AM CDT POCT GLUCOSE DEVICE Routine 02/26/2025 3 :26 AM CDT POCT GLUCOSE DEVICE Routine 02/25/2025 8 :36 PM CDT POCT GLUCOSE DEVICE Routine 02/25/2025 5 :35 PM CDT TRANSTHORACIC ECHO (TTE) COMPLETE W DOPPLER/CF WO CONTRAST Routine 02/25/2025 2:52 PM CDT US VEIN DUPLEX LOWER EXTREMITY BILATERAL COMPLETE IP Routine 02/25/2025 2:20 PM CDT POCT GLUCOSE DEVICE Routine 02/25/2025 11:30 AM CDT POCT GLUCOSE DEVICE Routine 02/25/2025 8 :55 AM CDT US GALLBLADDER ED 02/25/2025 7:34 AM CDT EGFR Routine 02/25/2025 6:29 AM CDT DIFFERENTIAL AUTO Routine 02/25/2025 6:2 9 AM CDT CBC WITH AUTO DIFFERENTIAL Routine 02/25/2025 6:29 AM CDT COMPREHENSIVE METABOLIC PANEL Routine 02/25/2025 6:29 AM CDT POCT GLUCOSE DEVICE Routine 02/25/2025 4 :29 AM CDT POCT GLUCOSE DEVICE Routine 02/25/2025 12:48 AM CDT POCT GLUCOSE DEVICE Routine 02/24/2025 7 :53 PM CDT LACTATE STAT 02/24/2025 3:55 PM CDT POCT GLUCOSE DEVICE Routine 02/24/2025 3 :[address] ABDOMEN PELVIS WO CONTRAST ED Urgent/IP Urgent 02/24/2025 2:21 PM CDT BLOOD CULTURE STAT 02/24/2025 1:00 PM CDT BLOOD CULTURE STAT 02/24/2025 1:00 PM CDT LIPASE Timed 02/24/2025 12:31 PM CDT TROPONIN T HIGH-SENSITIVITY 4-HR Timed 02/24/2025 12:[address] CHEST PE W CONTRAST ED Urgent/IP Urgent 02/24/2025 9:49 AM CDT D-DIMER, QUANTITATIVE STAT 02/24/2025 9:07 AM CDT TROPONIN T HIGH-SENSITIVITY 2-HOUR Timed 02/24/2025 9:07 AM CDT ECG 12-LEAD STAT 02/24/2025 8:46 AM CDT XR CHEST 1 VIEW ED 02/24/2025 7:34 AM CDT EGFR STAT 02/24/2025 6:56 AM CDT DIFFERENTIAL AUTO STAT 02/24/2025 6:5 6 AM CDT TROPONIN T HIGH-SENSITIVITY SERIES (BASELINE, 2HR, 4HR, 6HR) STAT 02/24/2025 6:56 AM CDT COMPREHENSIVE METABOLIC PANEL STAT 02/24/2025 6:56 AM CDT CBC WITH AUTO DIFFERENTIAL STAT 02/24/2025 6:56 AM CDT ECG 12-LEAD STAT 02/24/2025 6:40 AM CDT FERRITIN Routine 02/12/2025 8:42 AM CDT NSTEMI (non-ST elevated myocardial infarction) (HCC) Ischemic cardiomyopathy Coronary artery disease involving moapa coronary artery of moapa heart without angina pectoris Essential hypertension S/P coronary artery stent placement Other iron deficiency anemia IRON PROFILE W/ IBC Routine 02/12/2025 8 :42 AM CDT NSTEMI (non-ST elevated myocardial infarction) (HCC) Ischemic cardiomyopathy Coronary artery disease involving moapa coronary artery of moapa heart without angina pectoris Essential hypertension S/P coronary artery stent placement Other iron deficiency anemia CBC WITH AUTO DIFFERENTIAL Routine 02/12/2025 8:41 AM CDT NSTEMI (non-ST elevated myocardial infarction) (HCC) Ischemic cardiomyopathy Coronary artery disease involving moapa coronary artery of moapa heart without angina pectoris Essential hypertension S/P coronary artery stent placement Other iron deficiency anemia DEXA AXIAL SKELETON BONE DENSITY 1 OR MORE SITES Schedule Routine, Read Routine (OP Routine) 07/10/2024 10:32 AM CDT Encounter for screening for osteoporosis from Last 3 Months or Most Recently Relevant to Health Maintenance Results * (ABNORMAL) Renal function panel (04/09/2025 7:32 AM CDT) Blood us Peter Bucio MD LAB BLOOD ORDERABLES Final Resu lt [facility] * DEVICE CHECK - REMOTE (03/29/2025 2:00 AM CDT) Anatomical Region Laterality Modality Other 03/29/2025 2:00 AM CDT us Not In File Miscellaneous CV CARDIAC SERVICES NM OCEDURES Final Result * (ABNORMAL) POCT glucose (03/01/2025 12:23 PM CDT) Glucose, POC 239(H) 70 - 199 mg/dL Glucose comment 1 Use This Result [facility] Blood 03/01/2025 12:2 3 PM CDT 03/01/2025 12:23 PM CDT us Sandra Mcnamara MD LAB POCT ORDERABLES - DEVICE Final Result [facility] [address] [facility] [place] [address] * (ABNORMAL) POCT glucose (03/01/2025 11:42 AM CDT) Glucose, POC 252(H) 70 - 199 mg/dL Glucose comment 1 Use This Result [facility] Blood 03/01/2025 11:4 2 AM CDT 03/01/2025 11:42 AM CDT Sandra Mcnamara MD LAB POCT ORDERABLES - DEVICE Final Result Performing Organization Address [facility] Co de Phone Number [address] [address] * POCT glucose (03/01/2025 7:37 AM CDT) Pathologist [facility] Glucose, POC 110 70 - 199 mg/dL Glucose comment 1 Use This Result [facility] Blood 03/01/2025 7:37 AM CDT 03/01/2025 7:37 AM CDT Sandra Mcnamara MD LAB POCT ORDERABLES - DEVICE Final Result Performing Organization Address City/[facility] Co de Phone Number [address] [address] * (ABNORMAL) eGFR (03/01/2025 5:25 AM CDT) [facility] eGFR 57(L) >=60 mL/min/1. 73 m2 Comment: Interpretive Data Reference Interval Normal >/= 90 mL/min/1.73m2 Mildly decreased* 60 - 89 mL/min/1.73m2 Mildly to moderately decreased 45 - 59 mL/min/1.73m2 Moderately to severely decreased 30 - 44 mL/min/1.73m2 Severely decreased 15 - 29 mL/min/1.73m2 Kidney Failure < 15 mL/min/1.73m2 *Relative to young adult level Estimated glomerular filtration rate is determined by the 2020 CKD-EPI equation recommended by the National Kidney Foundation (A Unifying Approach to GFR Estimation: Recommendations of the NKF-ASK Task Force on Reassessing the Inclusion of Race in Diagnosing Kidney Disease, JASN 2020). The CKD-EPI equation should not be used for patients with unstable renal function and has not been validated in children and those over 70. Current interpretive data was last reviewed 2021. Blood 03/01/2025 5:25 AM CDT 03/01/2025 5:42 AM CDT us Heri Parikh MD LAB BLOOD ORDERABLES Final Re sult [facility] [id number] [facility] Department [place] [address] * (ABNORMAL) Differential, auto (03/01/2025 5:25 AM CDT) Neutrophil abs 3.55 1.50 - 6.50 K/cumm Imm gran abs 0.02 0.00 - 0.10 K/cumm [facility] Lymphocyte abs 0.65(L) 0.80 - 3.30 K/cumm [facility] Monocyte abs 0.79 0.20 - 0.80 K/cumm [facility] Eosinophil abs 0.00 0.00 - 0.50 K/cumm [facility] Basophil abs 0.01 0.00 - 0.10 K/cumm [facility] Neutrophil pct 70.8 % [facility] Comment: Interpretive Data Percent cell count reference ranges are not reported, since discordance with absolute values may lead to misinterpretation of CBC data. Current Interpretive Data was last revised on 2018. Imm gran pct 0.4 % [facility] Comment: Interpretive Data Percent cell count reference ranges are not reported, since discordance with absolute values may lead to misinterpretation of CBC data. Current Interpretive Data was last revised on 2018. Lymphocyte pct 12.9 % [facility] Comment: Interpretive Data Percent cell count reference ranges are not reported, since discordance with absolute values may lead to misinterpretation of CBC data. Current Interpretive Data was last revised on 2018. Monocyte pct 15.7 % [facility] Comment: Interpretive Data Percent cell count reference ranges are not reported, since discordance with absolute values may lead to misinterpretation of CBC data. Current Interpretive Data was last revised on 2018. Eosinophil pct 0.0 % [facility] Comment: Interpretive Data Percent cell count reference ranges are not reported, since discordance with absolute values may lead to misinterpretation of CBC data. Current Interpretive Data was last revised on 2018. Basophil pct 0.2 % [facility] Comment: Interpretive Data Percent cell count reference ranges are not reported, since discordance with absolute values may lead to misinterpretation of CBC data. Current Interpretive Data was last revised on 2018. Blood 03/01/2025 5:25 AM CDT 03/01/2025 5:41 AM CDT us Heri Parikh MD LAB BLOOD ORDERABLES Final Re sult [facility] [id number] [facility] Department [place] [address] * (ABNORMAL) CBC with auto differential (03/01/2025 5:25 AM CDT) WBC 5.02 3.80 - 9.90 K/cumm Hgb 8.6(L) 11.9 - 15.5 g/dL [facility] Hct 26.4(L) 35.6 - 45.5 % [facility] Plt 279 150 - 400 K/cumm [facility] MPV 9.7 9.1 - 12.3 fL [facility] RBC 3.29(L) 3.90 - 5.20 M/cumm [facility] MCV 80.2(L) 81.3 - 96.4 fL [facility] MCH 26.1(L) 27.1 - 33.3 pg [facility] MCHC 32.6 32.3 - 35.7 g/dL [facility] RDW CV 19.6(H) 11.1 - 14.9 % [facility] RDW SD 57.4(H) 35.7 - 48.1 fL [facility] NRBC abs 0.00 0.00 - 0.01 K/cumm [facility] Blood 03/01/2025 5:25 AM CDT 03/01/2025 5:41 AM CDT Heri Parikh MD LAB BLOOD ORDERABLES Final Re sult [facility] [address] [facility] Department [place] [address] * (ABNORMAL) Comprehensive metabolic panel (03/01/2025 5:25 AM CDT) Sodium 137 135 - 145 mmol/L Potassium, pl 4.3 3.3 - 4.9 mmol/L [facility] Chloride 107 97 - 110 mmol/L [facility] CO2 21(L) 22 - 32 mmol/L [facility] Anion gap 9 2 - 15 mmol/L [facility] BUN 9 6 - 25 mg/dL [facility] Creatinine 1.05 0.60 - 1.10 mg/dL [facility] Glucose 106 70 - 199 mg/dL [facility] Comment: Interpretive Data Fasting glucose >/= 126 mg/dl is diagnostic for diabetes. Fasting is defined as no caloric intake for at least 8 hours. Fasting glucose between 100 mg/dl to 125 mg/dl is diagnostic of prediabetes. In a patient with classic symptoms of hyperglycemia or hyperglycemic crisis, a random glucose >/= 200 mg/dl is diagnostic for diabetes. In the absence of unequivocal hyperglycemia, results should be confirmed by repeat testing. The classification and Diagnosis of Diabetes Diabetes Care 202; 46: S19-S40. Current interpretive data was last revised 2022. Calcium 8.4(L) 8.5 - 10.3 mg/dL [facility] Bilirubin, total 0.6 0.1 - 1.2 mg/dL [facility] Protein, pl 5.7(L) 6.5 - 8.5 g/dL [facility] Albumin 3.5 3.5 - 5.0 g/dL [facility] Alk phos 91 40 - 130 Units/L [facility] ALT 33 7 - 45 Units/L [facility] AST 58(H) 10 - 45 Units/L [facility] Blood 03/01/2025 5:25 AM CDT 03/01/2025 5:42 AM CDT Heri Parikh MD LAB BLOOD ORDERABLES Final Re sult Performing Organization Address [facility] Co de Phone Number [address] [place] [address] * (ABNORMAL) POCT glucose (02/28/2025 7:44 PM CDT) Glucose, POC 213(H) 70 - 199 mg/dL Glucose comment 1 Use This Result [facility] Glucose comment 2 RN/MD Notified [facility] Blood 02/28/2025 7:44 PM CDT 02/28/2025 7:44 PM CDT Sandra Mcnamara MD LAB POCT ORDERABLES - DEVICE Final Result Performing Organization Address [facility] de Phone Number [address] [place] [address] * POCT glucose (02/28/2025 4:34 PM CDT) Glucose, POC 127 70 - 199 mg/dL Glucose comment 1 Use This Result [facility] Blood 02/28/2025 4:34 PM CDT 02/28/2025 4:34 PM CDT Sandra Mcnamara MD LAB POCT ORDERABLES - DEVICE Final Result Performing Organization Address [facility] Co de Phone Number [address] [place] [address] * POCT glucose (02/28/2025 12:30 PM CDT) Glucose, POC 111 70 - 199 mg/dL Blood 02/28/2025 12:3 0 PM CDT 02/28/2025 12:30 PM CDT Sandra Mcnamara MD LAB POCT ORDERABLES - DEVICE Final Result Performing Organization Address City/[facility] Co de Phone Number JOSÉ MIGUEL [id number] Department [place] [address] * POCT glucose (02/28/2025 12:01 PM CDT) Glucose, POC 138 70 - 199 mg/dL Blood 02/28/2025 12:0 1 PM CDT 02/28/2025 12:01 PM CDT Sandra Mcnamara MD LAB POCT ORDERABLES - DEVICE Final Result Performing Organization Address City/[facility] Co de Phone Number JOSÉ MIGUEL [address] [place] [address] * Surgical pathology (02/28/2025 11:09 AM CDT) Tissue (Gallbladder) 02/28/2025 11:09 AM CDT Narrative PATHOLOGY [facility] - 03/04/2025 2:25 PM CDT [facility] Department of Pathology [address] [place] [id number] Note to Patients: This report may contain a detailed description of human tissue sent by a health care provider to the laboratory for pathologic evaluation. The content of this report is essential for diagnosis and may provide important critical findings. This information may be unfamiliar to patients to review without a medical professional present. It is advised that the patient review this report in the presence of a health care provider who can answer questions and explain the details. Final Report Patient Name: LESLIE VALENTINO : 1955 (Age: 69) Gender: F Address: [address] [place] [address] Hospital #: [id number] Service: Medical Location: Patient Type: [facility] INPATIENT Taken: 02/28/2025 Received: 02/28/2025 Accessioned: 02/28/2025 Reported: 03/04/2025 Physician(s): Heri Parikh M.D. Diagnosis: Gallbladder, cholecystectomy - Cholelithiasis Roberto Nuñez M.D. Report Electronically Reviewed and Signed Out By Roberto Nuñez M.D. 03/04/2025 14:25:19 Specimen(s) Received: A: Gallbladder Microscopic Description: Microscopic examination substantiates the above cited diagnosis. Microscopic examination substantiates the above cited diagnosis. Clinical History: The patient is a 69-year-old woman with an unknown diagnosis. Operative procedure: Laparoscopic cholecystectomy. Gross Description Received in formalin, labeled with the patient s identifiers and gallbladder and consists of a 10.0 x 4.5 x 3.6 cm intact gallbladder with diaz-purple, glistening serosa and a stapled cystic duct measuring 0.3 cm in diameter (inked black). The lumen contains an abundant amount of dark green, viscous bile and a few dark brown, ovoid choleliths ranging from 1.5-1.7 cm. The mucosa is green-brown and velvety, and the wall thickness averages 0.2 cm. Rn Outpatient Surgery sections to include the cystic duct margin and full-thickness sections from the neck, body and fundus are submitted. Labeled A1. Essie BensonYulissa jjmhb/02/28/2025 14:47 JERAMY Gonzalez, PA ([facility]) Microscopic slide review and interpretation for this case was performed at [facility], Department of Surgical Pathology, [address] [facility], [place] [id number], [place] [id number] CLIA # [id number] Heri Parikh MD LAB PATHOLOGY ORDERABLES Anisha petty Result PATHOLOGY [facility] * NM AN ELECTIVE ENDOTRACHEAL AIRWAY, NM AN PROCEDURE PLACEHOLDER (02/28/2025 10:30 AM CDT) Narrative Oniel Arnett CRNA - 02/28/2025 10:30 AM CDT Oniel Arnett CRNA 02/28/2025 10:30 AM Airway Patient location: OR Urgency: elective Date/time: 02/28/2025 10:17 AM Indications for airway management: anesthesia Difficult airway: no Staff: Supervising provider: Barak Gibbs DO Placed by: INFORMATION SYSTEMS AUDITOR: Oniel Arnett CRNA Emergent airway documentation: Risks and benefits discussed: yes Consent obtained: yes Consent given by: patient Airway prep: Preoxygenated: yes Patient position: sniffing MILS maintained throughout: yes Mask difficulty assessment: 1 - vent by mask Spontaneous ventilation during airway: absent Sedation level during airway: deep Final airway details: Final airway type: endotracheal airway Tube type: ETT ETT size: 7.0 mm Cuffed: yes Technique used for successful ETT placement: direct laryngoscopy Devices/Methods used in placement: intubating stylet Insertion site: oral Blade type: Florez Blade size: 2 Cormack-Lehane (direct): grade I - full view of glottis Cuff volume: 8 mL Cuff inflated with: air ETT to gums: 20 cm Placement verified by: auscultation and CO2 detection Airway secured with: silk tape Number of attempts: 1 Additional comments: Atraumatic ETT insertion Barak Gibbs DO ANESTHESIA ORDERABLES Final R esult * POCT glucose (02/28/2025 9:09 AM CDT) Glucose, POC 93 70 - 199 mg/dL Blood 02/28/2025 9:09 AM CDT 02/28/2025 9:09 AM CDT Sandra Mcnamara MD LAB POCT ORDERABLES - DEVICE Final Result Performing Organization Address [facility] Co de Phone Number [address] [place] [address] * POCT glucose (02/28/2025 7:43 AM CDT) Glucose, POC 106 70 - 199 mg/dL Glucose comment 1 Use This Result [facility] Glucose comment 2 RN/MD Notified JOSÉ MIGUEL Blood 02/28/2025 7:43 AM CDT 02/28/2025 7:43 AM CDT Sandra Mcnamara MD LAB POCT ORDERABLES - DEVICE Final Result Performing Organization Address City/[facility] Co de Phone Number [address] [place] [address] * eGFR (02/28/2025 6:42 AM CDT) Pathologist [facility] eGFR 61 >=60 mL/min/1. 73 m2 Comment: Interpretive Data Reference Interval Normal >/= 90 mL/min/1.73m2 Mildly decreased* 60 - 89 mL/min/1.73m2 Mildly to moderately decreased 45 - 59 mL/min/1.73m2 Moderately to severely decreased 30 - 44 mL/min/1.73m2 Severely decreased 15 - 29 mL/min/1.73m2 Kidney Failure < 15 mL/min/1.73m2 *Relative to young adult level Estimated glomerular filtration rate is determined by the 2020 CKD-EPI equation recommended by the National Kidney Foundation (A Unifying Approach to GFR Estimation: Recommendations of the NKF-ASK Task Force on Reassessing the Inclusion of Race in Diagnosing Kidney Disease, JASN 2020). The CKD-EPI equation should not be used for patients with unstable renal function and has not been validated in children and those over 70. Current interpretive data was last reviewed 2021. Blood 02/28/2025 6:42 AM CDT 02/28/2025 7:22 AM CDT us Lisa Matias MD LAB BLOOD ORDERABLES Final Res ult [facility] [address] [facility] Department [place] [address] * Differential, auto (02/28/2025 6:42 AM CDT) Pathologist [facility] Neutrophil abs 1.83 1.50 - 6.50 K/cumm Imm gran abs 0.01 0.00 - 0.10 K/cumm [facility] Lymphocyte abs 0.99 0.80 - 3.30 K/cumm [facility] Monocyte abs 0.61 0.20 - 0.80 K/cumm [facility] Eosinophil abs 0.10 0.00 - 0.50 K/cumm [facility] Basophil abs 0.03 0.00 - 0.10 K/cumm [facility] Neutrophil pct 51.3 % [facility] Comment: Interpretive Data Percent cell count reference ranges are not reported, since discordance with absolute values may lead to misinterpretation of CBC data. Current Interpretive Data was last revised on 2018. Imm gran pct 0.3 % [facility] Comment: Interpretive Data Percent cell count reference ranges are not reported, since discordance with absolute values may lead to misinterpretation of CBC data. Current Interpretive Data was last revised on 2018. Lymphocyte pct 27.7 % [facility] Comment: Interpretive Data Percent cell count reference ranges are not reported, since discordance with absolute values may lead to misinterpretation of CBC data. Current Interpretive Data was last revised on 2018. Monocyte pct 17.1 % [facility] Comment: Interpretive Data Percent cell count reference ranges are not reported, since discordance with absolute values may lead to misinterpretation of CBC data. Current Interpretive Data was last revised on 2018. Eosinophil pct 2.8 % [facility] Comment: Interpretive Data Percent cell count reference ranges are not reported, since discordance with absolute values may lead to misinterpretation of CBC data. Current Interpretive Data was last revised on 2018. Basophil pct 0.8 % [facility] Comment: Interpretive Data Percent cell count reference ranges are not reported, since discordance with absolute values may lead to misinterpretation of CBC data. Current Interpretive Data was last revised on 2018. Blood 02/28/2025 6:42 AM CDT 02/28/2025 7:22 AM CDT us Lisa Matias MD LAB BLOOD ORDERABLES Final Res ult [facility] [address] [facility] Department of Laboratories [place], [place] [id number] * (ABNORMAL) CBC with auto differential (02/28/2025 6:42 AM CDT) WBC 3.57(L) 3.80 - 9.90 K/cumm Hgb 8.7(L) 11.9 - 15.5 g/dL JOSÉ MIGUEL Hct 27.5(L) 35.6 - 45.5 % [facility] Plt 228 150 - 400 K/cumm [facility] MPV 10.0 9.1 - 12.3 fL [facility] RBC 3.41(L) 3.90 - 5.20 M/cumm [facility] MCV 80.6(L) 81.3 - 96.4 fL [facility] MCH 25.5(L) 27.1 - 33.3 pg [facility] MCHC 31.6(L) 32.3 - 35.7 g/dL [facility] RDW CV 19.9(H) 11.1 - 14.9 % [facility] RDW SD 58.4(H) 35.7 - 48.1 fL [facility] NRBC abs 0.00 0.00 - 0.01 K/cumm [facility] Blood 02/28/2025 6:42 AM CDT 02/28/2025 7:22 AM CDT Heri Parikh MD LAB BLOOD ORDERABLES Final Re sult [facility] [address] [facility] Department [place] [address] * (ABNORMAL) Comprehensive metabolic panel (02/28/2025 6:42 AM CDT) Sodium 139 135 - 145 mmol/L Potassium, pl 3.6 3.3 - 4.9 mmol/L [facility] Chloride 108 97 - 110 mmol/L [facility] CO2 21(L) 22 - 32 mmol/L [facility] Anion gap 10 2 - 15 mmol/L [facility] BUN 6 6 - 25 mg/dL [facility] Creatinine 0.99 0.60 - 1.10 mg/dL [facility] Glucose 92 70 - 199 mg/dL [facility] Comment: Interpretive Data Fasting glucose >/= 126 mg/dl is diagnostic for diabetes. Fasting is defined as no caloric intake for at least 8 hours. Fasting glucose between 100 mg/dl to 125 mg/dl is diagnostic of prediabetes. In a patient with classic symptoms of hyperglycemia or hyperglycemic crisis, a random glucose >/= 200 mg/dl is diagnostic for diabetes. In the absence of unequivocal hyperglycemia, results should be confirmed by repeat testing. The classification and Diagnosis of Diabetes Diabetes Care 2021; 46: S19-S40. Current interpretive data was last revised 2022. Calcium 8.5 8.5 - 10.3 mg/dL [facility] Bilirubin, total 0.7 0.1 - 1.2 mg/dL [facility] Protein, pl 6.0(L) 6.5 - 8.5 g/dL [facility] Albumin 3.4(L) 3.5 - 5.0 g/dL [facility] Alk phos 93 40 - 130 Units/L [facility] ALT 24 7 - 45 Units/L [facility] AST 43 10 - 45 Units/L [facility] Blood 02/28/2025 6:42 AM CDT 02/28/2025 7:22 AM CDT Heri Parikh MD LAB BLOOD ORDERABLES Final Re sult Performing Organization Address [facility] Co de Phone Number [address] [place] [address] * POCT glucose (02/28/2025 4:05 AM CDT) Glucose, POC 100 70 - 199 mg/dL Glucose comment 1 Use This Result [facility] Blood 02/28/2025 4:05 AM CDT 02/28/2025 4:05 AM CDT Sandra Mcnamara MD LAB POCT ORDERABLES - DEVICE Final Result Performing Organization Address City/[facility] Co de Phone Number [address] [place] [address] * POCT glucose (02/28/2025 12:02 AM CDT) Glucose, POC 101 70 - 199 mg/dL Glucose comment 1 Use This Result [facility] Blood 02/28/2025 12:0 2 AM CDT 02/28/2025 12:02 AM CDT Sandra Mcnamara MD LAB POCT ORDERABLES - DEVICE Final Result Performing Organization Address City/[facility]/ZIP Co de Phone Number FRANKIE[address] [place] [address] * POCT glucose (02/27/2025 8:23 PM CDT) Glucose, POC 129 70 - 199 mg/dL Blood 02/27/2025 8:23 PM CDT 02/27/2025 8:23 PM CDT us Sandra Mcnamara MD LAB POCT ORDERABLES - DEVICE Final Result Performing Organization Address [facility] Co de Phone Number FRANKIE[address] [place] [address] * POCT glucose (02/27/2025 5:14 PM CDT) Glucose, POC 170 70 - 199 mg/dL Blood 02/27/2025 5:14 PM CDT 02/27/2025 5:14 PM CDT us Sandra Mcnamara MD LAB POCT ORDERABLES - DEVICE Final Result Performing Organization Address City/[facility]/ZIP Co de Phone Number FRANKIE[address] [place] [address] * POCT glucose (02/27/2025 11:33 AM CDT) Glucose, POC 114 70 - 199 mg/dL Blood 02/27/2025 11:3 3 AM CDT 02/27/2025 11:33 AM CDT Sandra Mcnamara MD LAB POCT ORDERABLES - DEVICE Final Result Performing Organization Address City/[facility]/ZIP Co de Phone Number FRANKIE[address] [place] [address] * POCT glucose (02/27/2025 7:32 AM CDT) Pathologist [facility] Glucose, POC 115 70 - 199 mg/dL Blood 02/27/2025 7:32 AM CDT 02/27/2025 7:32 AM CDT us Sandra Mcnamara MD LAB POCT ORDERABLES - DEVICE Final Result Performing Organization Address City/[facility]/ZIP Co de Phone Number FRANKIE[address] [place] [address] * eGFR (02/27/2025 5:18 AM CDT) [facility] eGFR 65 >=60 mL/min/1. 73 m2 Comment: Interpretive Data Reference Interval Normal >/= 90 mL/min/1.73m2 Mildly decreased* 60 - 89 mL/min/1.73m2 Mildly to moderately decreased 45 - 59 mL/min/1.73m2 Moderately to severely decreased 30 - 44 mL/min/1.73m2 Severely decreased 15 - 29 mL/min/1.73m2 Kidney Failure < 15 mL/min/1.73m2 *Relative to young adult level Estimated glomerular filtration rate is determined by the 2020 CKD-EPI equation recommended by the National Kidney Foundation (A Unifying Approach to GFR Estimation: Recommendations of the NKF-ASK Task Force on Reassessing the Inclusion of Race in Diagnosing Kidney Disease, JASN 2020). The CKD-EPI equation should not be used for patients with unstable renal function and has not been validated in children and those over 70. Current interpretive data was last reviewed 2021. Blood 02/27/2025 5:18 AM CDT 02/27/2025 6:03 AM CDT us Lisa Matias MD LAB BLOOD ORDERABLES Final Res ult [address] [place] [address] * (ABNORMAL) Differential, auto (02/27/2025 5:18 AM CDT) [facility] Neutrophil abs 2.44 1.50 - 6.50 K/cumm Imm gran abs 0.00 0.00 - 0.10 K/cumm [facility] Lymphocyte abs 0.99 0.80 - 3.30 K/cumm [facility] Monocyte abs 0.83(H) 0.20 - 0.80 K/cumm [facility] Eosinophil abs 0.10 0.00 - 0.50 K/cumm [facility] Basophil abs 0.04 0.00 - 0.10 K/cumm [facility] Neutrophil pct 55.4 % [facility] Comment: Interpretive Data Percent cell count reference ranges are not reported, since discordance with absolute values may lead to misinterpretation of CBC data. Current Interpretive Data was last revised on 2018. Imm gran pct 0.0 % [facility] Comment: Interpretive Data Percent cell count reference ranges are not reported, since discordance with absolute values may lead to misinterpretation of CBC data. Current Interpretive Data was last revised on 2018. Lymphocyte pct 22.5 % [facility] Comment: Interpretive Data Percent cell count reference ranges are not reported, since discordance with absolute values may lead to misinterpretation of CBC data. Current Interpretive Data was last revised on 2018. Monocyte pct 18.9 % [facility] Comment: Interpretive Data Percent cell count reference ranges are not reported, since discordance with absolute values may lead to misinterpretation of CBC data. Current Interpretive Data was last revised on 2018. Eosinophil pct 2.3 % [facility] Comment: Interpretive Data Percent cell count reference ranges are not reported, since discordance with absolute values may lead to misinterpretation of CBC data. Current Interpretive Data was last revised on 2018. Basophil pct 0.9 % [facility] Comment: Interpretive Data Percent cell count reference ranges are not reported, since discordance with absolute values may lead to misinterpretation of CBC data. Current Interpretive Data was last revised on 2018. Blood 02/27/2025 5:18 AM CDT 02/27/2025 6:03 AM CDT us Lisa Matias MD LAB BLOOD ORDERABLES Final Res ult [place] [id number] [facility] Department [place] [address] * (ABNORMAL) CBC with auto differential (02/27/2025 5:18 AM CDT) [facility] WBC 4.40 3.80 - 9.90 K/cumm Hgb 8.3(L) 11.9 - 15.5 g/dL [facility] Hct 25.7(L) 35.6 - 45.5 % [facility] Plt 214 150 - 400 K/cumm [facility] MPV 10.3 9.1 - 12.3 fL [facility] RBC 3.16(L) 3.90 - 5.20 M/cumm [facility] MCV 81.3 81.3 - 96.4 fL [facility] MCH 26.3(L) 27.1 - 33.3 pg [facility] MCHC 32.3 32.3 - 35.7 g/dL [facility] RDW CV 19.8(H) 11.1 - 14.9 % [facility] RDW SD 58.9(H) 35.7 - 48.1 fL [facility] NRBC abs 0.00 0.00 - 0.01 K/cumm [facility] Blood 02/27/2025 5:18 AM CDT 02/27/2025 6:03 AM CDT us Heri Parikh MD LAB BLOOD ORDERABLES Final Re sult [address] Department [place] [address] * (ABNORMAL) Comprehensive metabolic panel (02/27/2025 5:18 AM CDT) [facility] Sodium 138 135 - 145 mmol/L Potassium, pl 3.6 3.3 - 4.9 mmol/L [facility] Chloride 109 97 - 110 mmol/L [facility] CO2 21(L) 22 - 32 mmol/L [facility] Anion gap 8 2 - 15 mmol/L [facility] BUN 9 6 - 25 mg/dL [facility] Creatinine 0.94 0.60 - 1.10 mg/dL [facility] Glucose 101 70 - 199 mg/dL [facility] Comment: Interpretive Data Fasting glucose >/= 126 mg/dl is diagnostic for diabetes. Fasting is defined as no caloric intake for at least 8 hours. Fasting glucose between 100 mg/dl to 125 mg/dl is diagnostic of prediabetes. In a patient with classic symptoms of hyperglycemia or hyperglycemic crisis, a random glucose >/= 200 mg/dl is diagnostic for diabetes. In the absence of unequivocal hyperglycemia, results should be confirmed by repeat testing. The classification and Diagnosis of Diabetes Diabetes Care 202; 46: S19-S40. Current interpretive data was last revised 2022. Calcium 7.8(L) 8.5 - 10.3 mg/dL [facility] Bilirubin, total 0.7 0.1 - 1.2 mg/dL [facility] Protein, pl 5.2(L) 6.5 - 8.5 g/dL [facility] Albumin 3.3(L) 3.5 - 5.0 g/dL [facility] Alk phos 75 40 - 130 Units/L [facility] ALT 19 7 - 45 Units/L [facility] AST 29 10 - 45 Units/L [facility] Blood 02/27/2025 5:18 AM CDT 02/27/2025 6:03 AM CDT us Heri Parikh MD LAB BLOOD ORDERABLES Final Re sult Performing Organization Address City/[facility]/ZIP Co de Phone Number [address] [place] [address] * POCT glucose (02/27/2025 4:02 AM CDT) [facility] Signature Glucose, POC 118 70 - 199 mg/dL Glucose comment 1 Use This Result [facility] Blood 02/27/2025 4:02 AM CDT 02/27/2025 4:02 AM CDT Sandra Mcnamara MD LAB POCT ORDERABLES - DEVICE Final Result Performing Organization Address City/[facility]/ZIP Co de Phone Number [address] [place] [address] * POCT glucose (02/26/2025 11:55 PM CDT) Glucose, POC 113 70 - 199 mg/dL Glucose comment 1 Use This Result [facility] Blood 02/26/2025 11:5 5 PM CDT 02/26/2025 11:55 PM CDT Sandra Mcnamara MD LAB POCT ORDERABLES - DEVICE Final Result Performing Organization Address City/[facility] Co de Phone Number FRANKIE[address] [place] [address] * POCT glucose (02/26/2025 8:25 PM CDT) Glucose, POC 137 70 - 199 mg/dL Glucose comment 1 Use This Result [facility] Blood 02/26/2025 8:25 PM CDT 02/26/2025 8:25 PM CDT Sandra Mcnamara MD LAB POCT ORDERABLES - DEVICE Final Result Performing Organization Address [facility] Co de Phone Number [address] [place] [address] * POCT glucose (02/26/2025 4:59 PM CDT) Glucose, POC 154 70 - 199 mg/dL Blood 02/26/2025 4:59 PM CDT 02/26/2025 4:59 PM CDT Sandra Mcnamara MD LAB POCT ORDERABLES - DEVICE Final Result Performing Organization Address [facility] Co de Phone Number [address] [place] [address] * POCT glucose (02/26/2025 11:17 AM CDT) Glucose, POC 149 70 - 199 mg/dL Blood 02/26/2025 11:1 7 AM CDT 02/26/2025 11:17 AM CDT Sandra Mcnamara MD LAB POCT ORDERABLES - DEVICE Final Result Performing Organization Address City/[facility] Co de Phone Number [address] [place] [address] * POCT glucose (02/26/2025 7:15 AM CDT) Glucose, POC 109 70 - 199 mg/dL Blood 02/26/2025 7:15 AM CDT 02/26/2025 7:15 AM CDT Sandra Mcnamara MD LAB POCT ORDERABLES - DEVICE Final Result Performing Organization Address [facility] Phone Number [address] [place] [address] * eGFR (02/26/2025 5:46 AM CDT) eGFR 78 >=60 mL/min/1. 73 m2 Comment: Interpretive Data Reference Interval Normal >/= 90 mL/min/1.73m2 Mildly decreased* 60 - 89 mL/min/1.73m2 Mildly to moderately decreased 45 - 59 mL/min/1.73m2 Moderately to severely decreased 30 - 44 mL/min/1.73m2 Severely decreased 15 - 29 mL/min/1.73m2 Kidney Failure < 15 mL/min/1.73m2 *Relative to young adult level Estimated glomerular filtration rate is determined by the 2020 CKD-EPI equation recommended by the National Kidney Foundation (A Unifying Approach to GFR Estimation: Recommendations of the NKF-ASK Task Force on Reassessing the Inclusion of Race in Diagnosing Kidney Disease, JASN 2020). The CKD-EPI equation should not be used for patients with unstable renal function and has not been validated in children and those over 70. Current interpretive data was last reviewed 2021. Blood 02/26/2025 5:46 AM CDT 02/26/2025 6:09 AM CDT us Lisa Matias MD LAB BLOOD ORDERABLES Final Res ult [facility] [address] [facility] [place] [address] * (ABNORMAL) Differential, auto (02/26/2025 5:46 AM CDT) Pathologist [facility] Neutrophil abs 2.94 1.50 - 6.50 K/cumm Imm gran abs 0.01 0.00 - 0.10 K/cumm [facility] Lymphocyte abs 1.05 0.80 - 3.30 K/cumm [facility] Monocyte abs 0.88(H) 0.20 - 0.80 K/cumm [facility] Eosinophil abs 0.07 0.00 - 0.50 K/cumm [facility] Basophil abs 0.03 0.00 - 0.10 K/cumm [facility] Neutrophil pct 59.0 % [facility] Comment: Interpretive Data Percent cell count reference ranges are not reported, since discordance with absolute values may lead to misinterpretation of CBC data. Current Interpretive Data was last revised on 2018. Imm gran pct 0.2 % [facility] Comment: Interpretive Data Percent cell count reference ranges are not reported, since discordance with absolute values may lead to misinterpretation of CBC data. Current Interpretive Data was last revised on 2018. Lymphocyte pct 21.1 % [facility] Comment: Interpretive Data Percent cell count reference ranges are not reported, since discordance with absolute values may lead to misinterpretation of CBC data. Current Interpretive Data was last revised on 2018. Monocyte pct 17.7 % [facility] Comment: Interpretive Data Percent cell count reference ranges are not reported, since discordance with absolute values may lead to misinterpretation of CBC data. Current Interpretive Data was last revised on 2018. Eosinophil pct 1.4 % [facility] Comment: Interpretive Data Percent cell count reference ranges are not reported, since discordance with absolute values may lead to misinterpretation of CBC data. Current Interpretive Data was last revised on 2018. Basophil pct 0.6 % [facility] Comment: Interpretive Data Percent cell count reference ranges are not reported, since discordance with absolute values may lead to misinterpretation of CBC data. Current Interpretive Data was last revised on 2018. Blood 02/26/2025 5:46 AM CDT 02/26/2025 6:09 AM CDT us Lisa Matias MD LAB BLOOD ORDERABLES Final Res ult Performing Organization Address [facility]/ZIP Co de Phone Number [address] [place] [address] * (ABNORMAL) CBC with auto differential (02/26/2025 5:46 AM CDT) WBC 4.98 3.80 - 9.90 K/cumm Hgb 8.8(L) 11.9 - 15.5 g/dL [facility] Hct 27.7(L) 35.6 - 45.5 % [facility] Plt 192 150 - 400 K/cumm [facility] MPV 9.9 9.1 - 12.3 fL [facility] RBC 3.44(L) 3.90 - 5.20 M/cumm [facility] MCV 80.5(L) 81.3 - 96.4 fL [facility] MCH 25.6(L) 27.1 - 33.3 pg [facility] MCHC 31.8(L) 32.3 - 35.7 g/dL [facility] RDW CV 20.3(H) 11.1 - 14.9 % [facility] RDW SD 59.8(H) 35.7 - 48.1 fL [facility] NRBC abs 0.00 0.00 - 0.01 K/cumm [facility] Blood 02/26/2025 5:46 AM CDT 02/26/2025 6:09 AM CDT us Heri Parikh MD LAB BLOOD ORDERABLES Final Re sult Performing Organization Address City/[facility]/ZIP Co de Phone Number [address] [place] [address] * (ABNORMAL) Comprehensive metabolic panel (02/26/2025 5:46 AM CDT) Sodium 134(L) 135 - 145 mmol/L Potassium, pl 3.7 3.3 - 4.9 mmol/L [facility] Chloride 107 97 - 110 mmol/L [facility] CO2 19(L) 22 - 32 mmol/L [facility] Anion gap 8 2 - 15 mmol/L [facility] BUN 14 6 - 25 mg/dL [facility] Creatinine 0.81 0.60 - 1.10 mg/dL [facility] Glucose 99 70 - 199 mg/dL [facility] Comment: Interpretive Data Fasting glucose >/= 126 mg/dl is diagnostic for diabetes. Fasting is defined as no caloric intake for at least 8 hours. Fasting glucose between 100 mg/dl to 125 mg/dl is diagnostic of prediabetes. In a patient with classic symptoms of hyperglycemia or hyperglycemic crisis, a random glucose >/= 200 mg/dl is diagnostic for diabetes. In the absence of unequivocal hyperglycemia, results should be confirmed by repeat testing. The classification and Diagnosis of Diabetes Diabetes Care 2021; 46: S19-S40. Current interpretive data was last revised 2022. Calcium 7.8(L) 8.5 - 10.3 mg/dL [facility] Bilirubin, total 0.8 0.1 - 1.2 mg/dL [facility] Protein, pl 5.2(L) 6.5 - 8.5 g/dL [facility] Albumin 3.4(L) 3.5 - 5.0 g/dL [facility] Alk phos 70 40 - 130 Units/L [facility] ALT 17 7 - 45 Units/L [facility] AST 24 10 - 45 Units/L [facility] Blood 02/26/2025 5:46 AM CDT 02/26/2025 6:09 AM CDT us Heri Parikh MD LAB BLOOD ORDERABLES Final Re sult [facility] [address] [facility] [place] [address] * POCT glucose (02/26/2025 3:26 AM CDT) Glucose, POC 108 70 - 199 mg/dL Glucose comment 1 Use This Result [facility] Blood 02/26/2025 3:26 AM CDT 02/26/2025 3:26 AM CDT Result [facility] us Lisa Matias MD LAB POCT ORDERABLES - DEVICE F inal Result Performing Organization Address [facility] de Phone Number [address] [place] [address] * POCT glucose (02/25/2025 8:36 PM CDT) Glucose, POC 151 70 - 199 mg/dL Glucose comment 1 Use This Result [facility] Blood 02/25/2025 8:3 6 PM CDT 02/25/2025 8:36 PM CDT Result [facility] Lisa Matias MD LAB POCT ORDERABLES - DEVICE F inal Result Performing Organization Address [facility] de Phone Number [address] [place] [address] * POCT glucose (02/25/2025 5:35 PM CDT) [facility] Signature Glucose, POC 168 70 - 199 mg/dL Blood 02/25/2025 5:35 PM CDT 02/25/2025 5:35 PM CDT Result [facility] us Lisa Matias MD LAB POCT ORDERABLES - DEVICE F inal Result Performing Organization Address [facility] Co de Phone Number [address] [place] [address] * TRANSTHORACIC ECHO (TTE) COMPLETE W DOPPLER/CF WO CONTRAST (02/25/2025 2:52 PM CDT) [facility] EF Mod BP 71 % CONS SCIMAGE Anatomical Region Laterality Modality Ultrasound 02/25/2025 2:04 PM CDT Narrative 02/25/2025 4:44 PM CDT Transthoracic Echocardiographic Report Patient Name: LESLIE VALENTINO A : 1955 (69y 9m) Gender: F Study Date: 02/25/2025 02:04:16 PM Ht(Inch): 64 Wt(Lb): 108 BSA: 1.49 Recovery Assistant: Allyson Richard RDCS Location: [id number] Order Provider: LISA MATIAS Heart Rate: 68 BMI: 18.54 BP: 94 / 62 Ref Provider: LISA MATIAS PROCEDURES: Echocardiographic Report: ([id number]) Transthoracic complete echo, 2D, spectral and tissue Doppler, color flow Doppler, M-mode. INDICATIONS: Chest pain. FINDINGS: Left Ventricle: Normal left ventricular cavity size. Normal Left ventricular wall thickness. Normal left ventricular systolic function. The Ejection Fraction (Ozuna's) is measured at 71 %. Diastolic Function Mitral inflow pattern is Normal and E to E' ratio is 8-15 which is in the indeterminate zone. No Thrombus noted in Left Ventricle. Regional Wall Motion: There are no regional wall motion abnormalities. Right Ventricle: Normal right ventricular size. Wire noted in the right heart. Left Atrium: The left atrium is normal in size. Right Atrium: The right atrium is normal in size. Atrial Septum: The interatrial septum is normal in appearance. Mitral Valve: Normal mitral valve leaflet structure. Mild mitral annular calcification. No mitral regurgitation seen. No mitral valve stenosis. Aortic Valve: Trileaflet aortic valve. Trace aortic valve regurgitation. Tricuspid Valve: The estimated pulmonary artery systolic pressure is 49-53 mmHg. Estimated pulmonary artery systolic pressure is consistent with moderate pulmonary hypertension (45-60mmHg). Pulmonic Valve: Pulmonic Valve not well visualized due to poor echo windows. Pericardium: Small to moderate pericardial effusion. No echocardiographic evidence to suggest cardiac tamponade. Aorta: Normal aortic root. IVC: IVC is normal in size. IVC has blunted respirophasic collapse. IVC is dilated. The estimated RA pressure is 15 mmHg. Elevated right atrial pressure. - CONCLUSIONS: 1. Normal left ventricular systolic function. The Ejection Fraction (Ozuna's) is measured at 71 %. 2. A small to moderate size pericardial effusion. No cardiac tamponade. 3.Mild tricuspid regurgitation with mild pulmonary hypertension. Right ventricular systolic pressure 49-53. - MEASUREMENTS: 2D/MM Value Range Doppler Value LVIDd 2D 3.88 cm [ 3.50 - 5.70 ] AV Peak Moreno 1.22 m/s LVIDs 2D 2.31 cm [ 3.10 - 4.60 ] AV Peak PG 5.95 mmHg IVSd 2D 0.73 cm [ 0.60 - 1.20 ] LVOT Peak Moreno 1.08 m/s LVPWd 2D 0.76 cm [ 0.60 - 1.10 ] LVOT Peak PG 4.67 mmHg LV Thickness Ratio 0.96 LVOT Diam 2.00 cm LV Mass 2D 82.71 g QUOC Vmax 2.78 cm2 LV Mass Index 2D 55.51 g/m2 MV E Peak Moreno 0.80 m/s RWT 0.39 MV A Peak Moreno 0.80 m/s EDV Mod BP 42.60 ml [ 46.00 - 106.00 ] MV E/A 1.00 ratio LV EDV Index 28.59 ml/m2 MV Decel Time 301.00 msec ESV Mod BP 18.50 ml [ 14.00 - 42.00 ] Med E` Moreno 6.31 cm/sec EF Mod BP 71 % [ 54 - 74 ] Lat E` Moreno 6.42 cm/sec LA Dimension 2D 2.70 cm [ 1.90 - 4.00 ] Average E/E` 12.57 TAPSE 2.04 cm [ 1.71 - 5.00 ] TV Peak Moreno 0.49 m/s AoR Diam 2D 3.10 cm [ 2.00 - 3.70 ] TV Peak PG 0.96 mmHg Ao Root Index 2.08 cm/m2 [ 1.00 - 2.00 ] RV S` 14.90 cm/sec TR Peak Moreno 3.12 m/s TR Peak PG 38.9 mmHg RA Pressure 15.00 mmHg RVSP 53.90 mmHg PV Peak Moreno 0.83 m/s PV Peak PG 2.76 mmHg PI ED Moreno 78.70 cm/sec - ATTESTATION: I have reviewed and interpreted the pertinent images and measurements of this study. I attest to the conclusions in the final report that is provided above. DISCLAIMER: The study images and the final report will be retained in the patient chart by the Echo Laboratory for the legally required time period. This chart constitutes the legal record of any testing performed. Electronically Signed By: Sultan Esdras TABARES 02/25/2025 4:43:28 PM CDT Procedure Note Sultan Chandana Dewitt MD - 02/25/2025 Transthoracic Echocardiographic Report Patient Name: LESLIE VALENTINO A : 1955 (69y 9m) Gender: F Study Date: 02/25/2025 02:04:16 PM Ht(Inch): 64 Wt(Lb): 108 BSA: 1.49 Recovery Assistant: Allyson Richard RDCS Location: [place] [id number] Order Provider:LISA MATIAS Heart Rate: 68 BMI: 18.54 BP: 94 / 62 Ref Provider: LISA MATIAS PROCEDURES: Echocardiographic Report: ([id number]) Transthoracic complete echo, 2D,spectral and tissue Doppler, color flow Doppler, M-mode. INDICATIONS: Chest pain. FINDINGS: Left Ventricle: Normal left ventricular cavity size. Normal Leftventricular wall thickness. Normal left ventricular systolic function. The EjectionFraction (Ozuna's) is measured at 71 %. Diastolic Function Mitral inflow pattern is Normaland E to E' ratio is 8-15 which is in the indeterminate zone. No Thrombus noted in LeftVentricle. Regional Wall Motion: There are no regional wall motion abnormalities. Right Ventricle: Normal right ventricular size. Wire noted in the rightheart. Left Atrium: The left atrium is normal in size. Right Atrium: The right atrium is normal in size. Atrial Septum: The interatrial septum is normal in appearance. Mitral Valve: Normal mitral valve leaflet structure. Mild mitral annularcalcification. No mitral regurgitation seen. No mitral valve stenosis. Aortic Valve: Trileaflet aortic valve. Trace aortic valve regurgitation. Tricuspid Valve: The estimated pulmonary artery systolic pressure is 49-53mmHg. Estimated pulmonary artery systolic pressure is consistent with moderatepulmonary hypertension (45-60mmHg). Pulmonic Valve: Pulmonic Valve not well visualized due to poor echowindows. Pericardium: Small to moderate pericardial effusion. No echocardiographicevidence to suggest cardiac tamponade. Aorta: Normal aortic root. IVC: IVC is normal in size. IVC has blunted respirophasic collapse. IVC is dilated. The estimated RA pressure is 15 mmHg. Elevated rightatrial pressure. - CONCLUSIONS: 1. Normal left ventricular systolic function. The Ejection Fraction(Ozuna's) is measured at 71 %. 2. A small to moderate size pericardial effusion. No cardiac tamponade. 3.Mild tricuspid regurgitation with mild pulmonary hypertension. Rightventricular systolic pressure 49-53. - MEASUREMENTS: 2D/MM Value Range DopplerValue LVIDd 2D 3.88 cm [ 3.50 - 5.70 ] AV Peak Vel1.22 m/s LVIDs 2D 2.31 cm [ 3.10 - 4.60 ] AV Peak PG5.95 mmHg IVSd 2D 0.73 cm [ 0.60 - 1.20 ] LVOT Peak Vel1.08 m/s LVPWd 2D 0.76 cm [ 0.60 - 1.10 ] LVOT Peak PG4.67 mmHg LV Thickness Ratio 0.96 LVOT Diam2.00 cm LV Mass 2D 82.71 g QUOC Vmax2.78 cm2 LV Mass Index 2D 55.51 g/m2 MV E Peak Vel0.80 m/s RWT 0.39 MV A Peak Vel0.80 m/s EDV Mod BP 42.60 ml [ 46.00 - 106.00 ] MV E/A1.00 ratio LV EDV Index 28.59 ml/m2 MV Decel Smdu177.00 msec ESV Mod BP 18.50 ml [ 14.00 - 42.00 ] Med E` Vel6.31 cm/sec EF Mod BP 71 % [ 54 - 74 ] Lat E` Vel6.42 cm/sec LA Dimension 2D 2.70 cm [ 1.90 - 4.00 ] Average E/E`12.57 TAPSE 2.04 cm [ 1.71 - 5.00 ] TV Peak Vel0.49 m/s AoR Diam 2D 3.10 cm [ 2.00 - 3.70 ] TV Peak PG0.96 mmHg Ao Root Index 2.08 cm/m2 [ 1.00 - 2.00 ] RV S`14.90 cm/sec TR Peak Moreno 3.12 m/s TR Peak PG 38.9 mmHg RA Pressure 15.00 mmHg RVSP 53.90 mmHg PV Peak Moreno 0.83 m/s PV Peak PG 2.76 mmHg PI ED Moreno 78.70 cm/sec - ATTESTATION: I have reviewed and interpreted the pertinent images and measurements ofthis study. I attest to the conclusions in the final report that is provided above. DISCLAIMER: The study images and the final report will be retained in the patientchart by the Echo Laboratory for the legally required time period. This chart constitutesthe legal record of any testing performed. Electronically Signed By: Sultan Esdras TABARES 02/25/2025 4:43:28 PM CDT us Lisa Matias MD CV ECHO PROCEDURES Final Resul t * US Vein Duplex Lower Extremity Bilateral Complete (02/25/2025 2:20 PM CDT) Anatomical Region Laterality Modality Vascular Bilateral Ultrasound 02/25/2025 1:36 PM CDT Narrative 02/26/2025 12:37 PM CDT Lower Extremity Venous Report Patient Name: LESLIE VALENTINO A : 1955 (69y 9m) Gender: F Study Date: 02/25/2025 01:36:39 PM Recovery Assistant: ASHWIN LAUREANO Location: [id number] Order Provider: LISA MATIAS Quality: Adequate Ref Provider: LISA MATIAS PROCEDURES: Vascular Report: A non-invasive vascular imaging study of the bilateral lower extremity veins was performed using B-mode ultrasound, color flow, and spectral Doppler. INDICATIONS: Edema, unspecified and Elevated Ddimer. COMPARISONS: The previous exam was completed on 06/12/24. FINDINGS: Right: Negative for deep and superficial vein thrombosis in the right lower extremity. Left: Negative for deep and superficial vein thrombosis in the left lower extremity. Incidental Findings: Bilateral pulsatile flow in the CFVs. CONCLUSIONS: 1. There is no evidence of deep vein thrombosis in the lower extremities bilaterally. ATTESTATION: I have reviewed and interpreted the pertinent images and measurements of this study. I attest to the conclusions in the final report that is provided above. Electronically Signed By: Brett Brunson MD 02/26/2025 12:19:29 PM CDT Procedure Note Brett Brunson MD - 02/26/2025 Lower Extremity Venous Report Patient Name: LESLIE VALENTINO A : 1955 (69y 9m) Gender: F Study Date: 02/25/2025 01:36:39 PM Recovery Assistant: ASHWIN LAUREANO Location: [id number] Order Provider: LISA MATIAS Quality: Adequate Ref Provider: LISA MATIAS PROCEDURES: Vascular Report: A non-invasive vascular imaging study of the bilaterallower extremity veins was performed using B-mode ultrasound, color flow, and spectralDoppler. INDICATIONS: Edema, unspecified and Elevated Ddimer. COMPARISONS: The previous exam was completed on 06/12/24. FINDINGS: Right: Negative for deep and superficial vein thrombosis in the rightlower extremity. Left: Negative for deep and superficial vein thrombosis in the left lowerextremity. Incidental Findings: Bilateral pulsatile flow in the CFVs. CONCLUSIONS: 1. There is no evidence of deep vein thrombosis in the lower extremitiesbilaterally. ATTESTATION: I have reviewed and interpreted the pertinent images and measurements ofthis study. I attest to the conclusions in the final report that is provided above. Electronically Signed By: Brett Brunson MD 02/26/2025 12:19:29 PM CDT Lisa Matias MD [facility] PROCEDURES Final Result * POCT glucose (02/25/2025 11:30 AM CDT) Glucose, POC 112 70 - 199 mg/dL Blood 02/25/2025 11:3 0 AM CDT 02/25/2025 11:30 AM CDT us Lisa Matias MD LAB POCT ORDERABLES - DEVICE F inal Result Performing Organization Address City/[facility] Co de Phone Number JOS[facility]IG[facility] [address] [place] [address] * POCT glucose (02/25/2025 8:55 AM CDT) Glucose, POC 122 70 - 199 mg/dL Blood 02/25/2025 8:55 AM CDT 02/25/2025 8:55 AM CDT us Lisa Matias MD LAB POCT ORDERABLES - DEVICE F inal Result Performing Organization Address [facility] de Phone Number JOS[facility] MIG[facility] [address] [address] * US Gallbladder (02/25/2025 7:34 AM CDT) Anatomical Region Laterality Modality Abdomen N/A Ultrasound 02/25/2025 7:41 AM CDT Narrative 02/25/2025 7:44 AM CDT EXAM DESCRIPTION: US GALLBLADDER REASON FOR STUDY: pain Right upper quadrant pain with nausea and vomiting for 2 days. TECHNIQUE: Ultrasound of the gallbladder was performed with grayscale imaging. COMPARISON: 02/24/2025 FINDINGS: GALLBLADDER: There is cholelithiasis. The gallbladder wall measures 0.2 cm in thickness. There is small amount of pericholecystic fluid noted. There is a positive sonographic Weathers's sign. BILIARY SYSTEM: There is no evidence of intrahepatic or extrahepatic biliary ductal dilatation. The common bile duct measures 0.3 cm in diameter. LIVER: The visualized portion of the liver appears unremarkable. OTHER: No other significant findings. IMPRESSION: Cholelithiasis with a positive sonographic Weathers's sign and small amount of pericholecystic fluid, which raises the concern for acute cholecystitis. The necessity of further evaluation with HIDA scan can be determined clinically. THIS IS AN ELECTRONICALLY VERIFIED FINAL REPORT 02/25/2025 7:44 AM - Electronically signed by Kasey Savage D.O. PS T: Report ID: [id number] Reading Location: [place] [address] Procedure Note Kasey Savage DO - 02/25/2025 EXAM DESCRIPTION: US GALLBLADDER REASON FOR STUDY: pain Right upper quadrant pain with nausea and vomiting for 2 days. TECHNIQUE: Ultrasound of the gallbladder was performed with grayscaleimaging. COMPARISON: 02/24/2025 FINDINGS: GALLBLADDER: There is cholelithiasis. The gallbladder wall measures 0.2 cm in thickness. There is small amount of pericholecysticfluid noted. There is a positive sonographic Weathers's sign. BILIARY SYSTEM: There is no evidence of intrahepatic or extrahepaticbiliary ductal dilatation. The common bile duct measures 0.3 cm in diameter. LIVER: The visualized portion of the liver appears unremarkable. OTHER: No other significant findings. IMPRESSION: Cholelithiasis with a positive sonographic Weathers's sign and small amountof pericholecystic fluid, which raises the concern for acute cholecystitis.The necessity of further evaluation with HIDA scan can be determinedclinically. THIS IS AN ELECTRONICALLY VERIFIED FINAL REPORT 02/25/2025 7:44 AM - Electronically signed by Kasey Savage D.O. PS T: Report ID: [id number] Reading Location: [place] [address] us Danis Joe DO IMG US PROCEDURES Final Res ult * eGFR (02/25/2025 6:29 AM CDT) eGFR 71 >=60 mL/min/1. 73 m2 Comment: Interpretive Data Reference Interval Normal >/= 90 mL/min/1.73m2 Mildly decreased* 60 - 89 mL/min/1.73m2 Mildly to moderately decreased 45 - 59 mL/min/1.73m2 Moderately to severely decreased 30 - 44 mL/min/1.73m2 Severely decreased 15 - 29 mL/min/1.73m2 Kidney Failure < 15 mL/min/1.73m2 *Relative to young adult level Estimated glomerular filtration rate is determined by the 2021 CKD-EPI equation recommended by the National [employer] (A Unifying Approach to GFR Estimation: Recommendations of the NKF-ASK Task Force on Reassessing the Inclusion of Race in Diagnosing Kidney Disease, JASN 202). The CKD-EPI equation should not be used for patients with unstable renal function and has not been validated in children and those over 70. Current interpretive data was last reviewed 2021. Blood 02/25/2025 6:29 AM CDT 02/25/2025 6:41 AM CDT us Lisa Matias MD LAB BLOOD ORDERABLES Final Res ult [facility] [address] [facility] Department [place] [address] * (ABNORMAL) Differential, auto (02/25/2025 6:29 AM CDT) Neutrophil abs 4.30 1.50 - 6.50 K/cumm Imm gran abs 0.01 0.00 - 0.10 K/cumm [facility] Lymphocyte abs 0.69(L) 0.80 - 3.30 K/cumm [facility] Monocyte abs 0.70 0.20 - 0.80 K/cumm [facility] Eosinophil abs 0.02 0.00 - 0.50 K/cumm [facility] Basophil abs 0.03 0.00 - 0.10 K/cumm [facility] Neutrophil pct 74.8 % [facility] Comment: Interpretive Data Percent cell count reference ranges are not reported, since discordance with absolute values may lead to misinterpretation of CBC data. Current Interpretive Data was last revised on 2018. Imm gran pct 0.2 % [facility] Comment: Interpretive Data Percent cell count reference ranges are not reported, since discordance with absolute values may lead to misinterpretation of CBC data. Current Interpretive Data was last revised on 2018. Lymphocyte pct 12.0 % [facility] Comment: Interpretive Data Percent cell count reference ranges are not reported, since discordance with absolute values may lead to misinterpretation of CBC data. Current Interpretive Data was last revised on 2018. Monocyte pct 12.2 % [facility] Comment: Interpretive Data Percent cell count reference ranges are not reported, since discordance with absolute values may lead to misinterpretation of CBC data. Current Interpretive Data was last revised on 2018. Eosinophil pct 0.3 % [facility] Comment: Interpretive Data Percent cell count reference ranges are not reported, since discordance with absolute values may lead to misinterpretation of CBC data. Current Interpretive Data was last revised on 2018. Basophil pct 0.5 % [facility] Comment: Interpretive Data Percent cell count reference ranges are not reported, since discordance with absolute values may lead to misinterpretation of CBC data. Current Interpretive Data was last revised on 2018. Blood 02/25/2025 6:29 AM CDT 02/25/2025 6:40 AM CDT us Lisa Matias MD LAB BLOOD ORDERABLES Final Res ult [place] [id number] [facility] Department of Laboratories [place], [place] [id number] * (ABNORMAL) CBC with auto differential (02/25/2025 6:29 AM CDT) WBC 5.75 3.80 - 9.90 K/cumm Hgb 8.8(L) 11.9 - 15.5 g/dL [facility] Hct 27.3(L) 35.6 - 45.5 % [facility] Plt 191 150 - 400 K/cumm [facility] MPV 9.8 9.1 - 12.3 fL [facility] RBC 3.34(L) 3.90 - 5.20 M/cumm [facility] MCV 81.7 81.3 - 96.4 fL [facility] MCH 26.3(L) 27.1 - 33.3 pg [facility] MCHC 32.2(L) 32.3 - 35.7 g/dL [facility] RDW CV 19.9(H) 11.1 - 14.9 % [facility] RDW SD 58.7(H) 35.7 - 48.1 fL [facility] NRBC abs 0.00 0.00 - 0.01 K/cumm [facility] Blood 02/25/2025 6:29 AM CDT 02/25/2025 6:40 AM CDT Heri Parikh MD LAB BLOOD ORDERABLES Final Re sult [facility] [address] [facility] Department [place] [address] * (ABNORMAL) Comprehensive metabolic panel (02/25/2025 6:29 AM CDT) Sodium 135 135 - 145 mmol/L Potassium, pl 4.4 3.3 - 4.9 mmol/L [facility] Chloride 107 97 - 110 mmol/L [facility] CO2 21(L) 22 - 32 mmol/L [facility] Anion gap 7 2 - 15 mmol/L [facility] BUN 14 6 - 25 mg/dL [facility] Creatinine 0.88 0.60 - 1.10 mg/dL [facility] Glucose 119 70 - 199 mg/dL [facility] Comment: Interpretive Data Fasting glucose >/= 126 mg/dl is diagnostic for diabetes. Fasting is defined as no caloric intake for at least 8 hours. Fasting glucose between 100 mg/dl to 125 mg/dl is diagnostic of prediabetes. In a patient with classic symptoms of hyperglycemia or hyperglycemic crisis, a random glucose >/= 200 mg/dl is diagnostic for diabetes. In the absence of unequivocal hyperglycemia, results should be confirmed by repeat testing. The classification and Diagnosis of Diabetes Diabetes Care 2021; 46: S19-S40. Current interpretive data was last revised 2022. Calcium 8.2(L) 8.5 - 10.3 mg/dL [facility] Bilirubin, total 0.7 0.1 - 1.2 mg/dL [facility] Protein, pl 5.6(L) 6.5 - 8.5 g/dL [facility] Albumin 3.7 3.5 - 5.0 g/dL [facility] Alk phos 60 40 - 130 Units/L [facility] ALT 17 7 - 45 Units/L [facility] AST 25 10 - 45 Units/L [facility] Blood 02/25/2025 6:29 AM CDT 02/25/2025 6:41 AM CDT Heri Parikh MD LAB BLOOD ORDERABLES Final Re sult Performing Organization Address [facility] Co de Phone Number JOSÉ MIGUEL [address] [place] [address] * POCT glucose (02/25/2025 4:29 AM CDT) Glucose, POC 145 70 - 199 mg/dL Glucose comment 1 Use This Result JOSÉ MIGUEL Blood 02/25/2025 4:29 AM CDT 02/25/2025 4:29 AM CDT Lisa Matias MD LAB POCT ORDERABLES - DEVICE F inal Result Performing Organization Address [facility] Co de Phone Number FRANKIE[address] [place] [address] * POCT glucose (02/25/2025 12:48 AM CDT) Glucose, POC 152 70 - 199 mg/dL Glucose comment 1 Use This Result JOSÉ MIGUEL Blood 02/25/2025 12:4 8 AM CDT 02/25/2025 12:48 AM CDT Lisa Matias MD LAB POCT ORDERABLES - DEVICE F inal Result Performing Organization Address [facility] Co de Phone Number FRANKIE[address] [place] [address] * POCT glucose (02/24/2025 7:53 PM CDT) Glucose, POC 192 70 - 199 mg/dL Glucose comment 1 Use This Result JOSÉ MIGUEL Blood 02/24/2025 7:53 PM CDT 02/24/2025 7:53 PM CDT us Lisa Matias MD LAB POCT ORDERABLES - DEVICE F inal Result Performing Organization Address [facility] Co de Phone Number JOSÉ MIGUEL [address] [place] [address] * Lactate (02/24/2025 3:55 PM CDT) Lactate 0.9 0.7 - 2.0 mmol/L Blood 02/24/2025 3:55 PM CDT 02/24/2025 4:05 PM CDT us Lisa Matias MD LAB BLOOD ORDERABLES Final Res ult Performing Organization Address [facility] Co de Phone Number JOSÉ MIGUEL [address] [place] [address] * POCT glucose (02/24/2025 3:45 PM CDT) Glucose, POC 92 70 - 199 mg/dL Blood 02/24/2025 3:45 PM CDT 02/24/2025 3:45 PM CDT us Lisa Matias MD LAB POCT ORDERABLES - DEVICE F inal Result Performing Organization Address [facility] de Phone Number JOSÉ MIGUEL [address] [place] [address] * CT Abdomen Pelvis WO Contrast (02/24/2025 2:21 PM CDT) Anatomical Region Laterality Modality Body N/A Computed Tomogra phy 02/24/2025 2:26 PM CDT Narrative 02/24/2025 2:41 PM CDT EXAM DESCRIPTION: CT ABDOMEN PELVIS WO CONTRAST REASON FOR STUDY: RLQ abdominal pain Patient is a 69 y.o. female with a PMHx significant for coronary artery disease, ischemic cardiomyopathy, hypertension, status post coronary artery stent placement presented to emergency room with complaint of lower chest and upper abdominal pain. HX: diabetes, gerd, htn, tubal ligation TECHNIQUE: CT scan of the abdomen and pelvis performed without intravenous and without oral contrast using helical scanning technique. Reconstructed coronal and sagittal MPR images reviewed. All images stored on PACS. Automated exposure control was used as a dose optimization technique for this examination. COMPARISON: Chest CT 02/24/2025. FINDINGS: The sensitivity for detection of visceral lesions is diminished without the use of intravenous contrast. LOWER CHEST: No significant pulmonary abnormalities. No effusion. LIVER: Normal size. No identified cystic or solid masses. GALLBLADDER: There are numerous large gallstones within the gallbladder. There are least 3 lucent centered gallstones in the dependent gallbladder measuring up to 2 cm each. Additional smaller lucent stones are present.. No definite wall thickening or pericholecystic fluid. BILE DUCTS: No intrahepatic or extrahepatic ductal dilatation. SPLEEN: Normal size. No focal lesions. PANCREAS: No identified cystic or solid masses. No significant calcifications. No adjacent inflammation or peripancreatic fluid collections. Pancreatic duct not dilated. ADRENALS: Normal. KIDNEYS/URINARY TRACT: No identified significant cystic or solid masses. No stones. No hydronephrosis or hydroureter. Urinary bladder is unremarkable. GI: No dilated bowel loops. No obvious wall thickening. Normal appendix. No significant diverticular disease. PERITONEUM: No ascites or free air. RETROPERITONEUM: No mass or adenopathy. Postop jhonny in the right inguinal region. REPRODUCTIVE: No significant abnormality. VASCULATURE: No abdominal aortic aneurysm. MUSCULOSKELETAL: No significant abnormality. OTHER: No other abnormality. IMPRESSION: No acute intra-abdominal process. Prominent cholelithiasis. Correlation with clinical findings for tenderness in the gallbladder region suggested with consideration for ultrasound.. THIS IS AN ELECTRONICALLY VERIFIED FINAL REPORT 02/24/2025 2:41 PM - Electronically signed by Doug Erazo M.D. T: Report ID: [id number] Reading Location: [place] [address] Procedure Note Nicole Erazo MD - 02/24/2025 EXAM DESCRIPTION: CT ABDOMEN PELVIS WO CONTRAST REASON FOR STUDY: RLQ abdominal pain Patient is a 69 y.o. female with a PMHx significant for coronary artery disease, ischemic cardiomyopathy, hypertension, status post coronaryartery stent placement presented to emergency room with complaint of lower chestand upper abdominal pain. HX: diabetes, gerd, htn, tubal ligation TECHNIQUE: CT scan of the abdomen and pelvis performed without intravenousand without oral contrast using helical scanning technique. Reconstructed coronal and sagittal MPR images reviewed. All images stored on PACS.Automated exposure control was used as a dose optimization technique for this examination. COMPARISON: Chest CT 02/24/2025. FINDINGS: The sensitivity for detection of visceral lesions is diminished without the use of intravenous contrast. LOWER CHEST: No significant pulmonary abnormalities. No effusion. LIVER: Normal size. No identified cystic or solid masses. GALLBLADDER: There are numerous large gallstones within the gallbladder. There are least 3 lucent centered gallstones in the dependent gallbladder measuring up to 2 cm each. Additional smaller lucent stones are present..No definite wall thickening or pericholecystic fluid. BILE DUCTS: No intrahepatic or extrahepatic ductal dilatation. SPLEEN: Normal size. No focal lesions. PANCREAS: No identified cystic or solid masses. No significant calcifications. No adjacent inflammation or peripancreatic fluidcollections. Pancreatic duct not dilated. ADRENALS: Normal. KIDNEYS/URINARY TRACT: No identified significant cystic or solid masses.No stones. No hydronephrosis or hydroureter. Urinary bladder isunremarkable. GI: No dilated bowel loops. No obvious wall thickening. Normalappendix. No significant diverticular disease. PERITONEUM: No ascites or free air. RETROPERITONEUM: No mass or adenopathy. Postop jhonny in the right inguinal region. REPRODUCTIVE: No significant abnormality. VASCULATURE: No abdominal aortic aneurysm. MUSCULOSKELETAL: No significant abnormality. OTHER: No other abnormality. IMPRESSION: No acute intra-abdominal process. Prominent cholelithiasis. Correlation with clinical findings fortenderness in the gallbladder region suggested with consideration for ultrasound.. THIS IS AN ELECTRONICALLY VERIFIED FINAL REPORT 02/24/2025 2:41 PM - Electronically signed by Doug Erazo M.D. T: Report ID: [id number] Reading Location: [place] [address] Lisa Matias MD [facility] [place] PROCEDURES Final Result * Blood culture Blood (02/24/2025 1:00 PM CDT) Report Final Report: No growth Comment:Testing performed by : [facility], [address] [place]., [address] Blood 02/24/2025 1:00 PM CDT 02/24/2025 6:03 PM CDT Narrative JOSÉ MIGUEL - 03/01/2025 7:00 AM CDT Collection->Peripheral 1. Blood cultures are incubated for 4 days on a continuously monitored blood culture system. The first report of a negative culture is issued within 24 hours of receipt of the specimen in the laboratory. 2. Positive culture results are reported as soon as they are detected. 3. The most important factor for detection of microbes in the setting of bloodstream infection is the volume of blood submitted for culture. Failure to collect an optimal blood volume can result in false negative blood cultures. 4. For pediatric patients, the recommended blood volume to collect follows a weight based strategy. See the electronic test catalog for collection instructions. 5. For positive blood cultures, a rapid molecular test may be performed for organism identification using the jacqueline ePlex blood culture identification panel for gram positive (BCID-GP) and gram negative (BCID-GN) organisms. This nucleic acid amplification test detects microbial DNA in positive blood culture broth. This assay has been cleared by the [place] Food and Drug Administration and its performance characteristics have been verified by the [facility] Microbiology Laboratory. For questions about this culture, contact the Microbiology Laboratory at [phone]. Interpretive data was last revised on 24. Danis Joe DO LAB MICROBIOLOGY - GENERAL ORDERABLES Final Result JOSÉ MIGUEL [address] [facility] Department [place] [address] * Blood culture Blood (02/24/2025 1:00 PM CDT) Report Final Report: No growth Comment:Testing performed by : [facility], [address] [place]., [address] Blood 02/24/2025 1:00 PM CDT 02/24/2025 6:03 PM CDT Narrative JOSÉ MIGUEL - 03/01/2025 7:00 AM CDT Collection->Peripheral 1. Blood cultures are incubated for 4 days on a continuously monitored blood culture system. The first report of a negative culture is issued within 24 hours of receipt of the specimen in the laboratory. 2. Positive culture results are reported as soon as they are detected. 3. The most important factor for detection of microbes in the setting of bloodstream infection is the volume of blood submitted for culture. Failure to collect an optimal blood volume can result in false negative blood cultures. 4. For pediatric patients, the recommended blood volume to collect follows a weight based strategy. See the electronic test catalog for collection instructions. 5. For positive blood cultures, a rapid molecular test may be performed for organism identification using the jacqueline ePlex blood culture identification panel for gram positive (BCID-GP) and gram negative (BCID-GN) organisms. This nucleic acid amplification test detects microbial DNA in positive blood culture broth. This assay has been cleared by the [place] Food and Drug Administration and its performance characteristics have been verified by the [facility]. For questions about this culture, contact the Microbiology Laboratory at [phone]. Interpretive data was last revised on 24. Danis Joe DO LAB MICROBIOLOGY - GENERAL ORDERABLES Final Result JOSÉ MIGUEL [address] [facility] Department [place] [address] * Troponin T high-sensitivity 4-hour (02/24/2025 12:31 PM CDT) Trop T hs 9 <=14 ng/L Comment: Interpretive Data For further hscTnT resources including the diagnostic algorithm and an aid in interpretation, copy and paste this link: https://nrl.testcatalog.org/show/hsTrop Current Interpretive Data last revised 2020. Trop T hs delta See Comment ng/L JOSÉ MIGUEL DWYER Comment:Inappropriate collec tion time to report a delta. Trop T hs pct delta See Comment % JOSÉ MIGUEL DWYER Comment:Inappropriate collec tion time to report a delta. Trop T hs interp See Comment JOSÉ MIGUEL DWYER Comment:Inappropriate collec tion time to report a delta. Blood 02/24/2025 12:3 1 PM CDT 02/24/2025 12:34 PM CDT Danis Joe DO LAB BLOOD ORDERABLES Final Result Performing Organization Address [facility] Co de Phone Number JOSÉ MIGUEL [address] [place] [address] * Lipase (02/24/2025 12:31 PM CDT) Lipase 16 10 - 99 Units/L Blood 02/24/2025 12:3 1 PM CDT 02/24/2025 12:34 PM CDT Lisa Matias MD LAB BLOOD ORDERABLES Final Res ult Performing Organization Address [facility] Phone Number JOSÉ MIGUEL [address] [address] * CT Chest PE (CTA) W Contrast (02/24/2025 9:49 AM CDT) Anatomical Region Laterality Modality Body N/A Computed Tomogra phy 02/24/2025 10:1 7 AM CDT Narrative 02/24/2025 10:45 AM CDT EXAM DESCRIPTION: CT CHEST PE (CTA) W CONTRAST REASON FOR STUDY: Pulmonary embolism (PE) suspected, low to intermediate prob, positive D-dimer Patient came in c/o chest pain since yesterday evening. Patient states it is sternal and goes into her throat. Patient had a heart attack a year ago today and had a stent placed. Patient has a pace maker. Patient was seen on Tuesday to see her doctor for depression and was started on citalopram. Patient started the medication on . Patient is unable to describe the pain. Patient states this started after having one drink and some marijuana. Patient smokes every Tuesday. Patient takes plavix. Patient wants her to stop taking ASA today. Hx: CAD, diabetes, GERD , htn, cardiac cath TECHNIQUE: CT angiogram of the chest performed with intravenous contrast using helical scanning technique with dynamic intravenous contrast injection. Reconstructed coronal and sagittal MPR images reviewed. All images stored on PACS. 3D MIP images rendered on scanning unit and reviewed at time of interpretation. Automated exposure control was used as a dose optimization technique for this examination. CONTRAST TYPE/DOSE: 85mL of IOVERSOL 350 MG IODINE/ML INTRAVENOUS SYRINGE injected COMPARISON: 03/09/2024 FINDINGS: VASCULATURE: No CT evidence of pulmonary embolism. There is no aortic dissection or aortic aneurysm. Coronary artery atherosclerotic calcifications are present. There is possibly an LAD stent. LUNGS: No confluence pulmonary parenchymal consolidation. Mild scattered subsegmental atelectasis in both lungs. No suspicious pulmonary nodules. PLEURA: No pleural effusion. No pneumothorax. MEDIASTINUM/THADDEUS: No identified masses or lymphadenopathy. No supraclavicular lymphadenopathy. Fluid and debris is present within nondilated thoracic esophagus. HEART: Mild cardiomegaly with small volume pericardial fluid. There is mild left ventricular hypertrophy. AXILLA: No adenopathy. CHEST WALL: No masses. No subcutaneous air. HARDWARE/LINES/TUBES: Left chest wall pacemaker defibrillator with lead tips terminating in the right atrium and right ventricle. UPPER ABDOMEN: Cholelithiasis. Colonic diverticulosis. MUSCULOSKELETAL: No acute fractures or aggressive osseous lesions. IMPRESSION: 1. No CT evidence of pulmonary embolism. THIS IS AN ELECTRONICALLY VERIFIED FINAL REPORT 02/24/2025 10:45 AM - Electronically signed by Delta Armstrong M.D. AT T: Report ID: [id number] Reading Location: [place] [address] Procedure Note Delta Armstrong MD - 02/24/2025 EXAM DESCRIPTION: CT CHEST PE (CTA) W CONTRAST REASON FOR STUDY: Pulmonary embolism (PE) suspected, low to intermediate prob, positive D-dimer Patient came in c/o chest pain since yesterday evening. Patient statesit is sternal and goes into her throat. Patient had a heart attack a year ago today and had a stent placed. Patient has a pace maker. Patient wasseen on Tuesday to see her doctor for depression and was started on citalopram. Patient started the medication on . Patient is unable todescribe the pain. Patient states this started after having one drink and some marijuana. Patient smokes every Tuesday. Patient takes plavix.Patient wants her to stop taking ASA today. Hx: CAD, diabetes, GERD , htn,cardiac cath TECHNIQUE: CT angiogram of the chest performed with intravenous contrastusing helical scanning technique with dynamic intravenous contrast injection. Reconstructed coronal and sagittal MPR images reviewed. All images storedon PACS. 3D MIP images rendered on scanning unit and reviewed at time of interpretation. Automated exposure control was used as a doseoptimization technique for this examination. CONTRAST TYPE/DOSE: 85mL of IOVERSOL 350 MG IODINE/ML INTRAVENOUSSYRINGE injected COMPARISON: 03/09/2024 FINDINGS: VASCULATURE: No CT evidence of pulmonary embolism. There isno aortic dissection or aortic aneurysm. Coronary artery atherosclerotic calcifications are present. There is possibly an LAD stent. LUNGS: No confluence pulmonary parenchymal consolidation. Mildscattered subsegmental atelectasis in both lungs. No suspicious pulmonary nodules. PLEURA: No pleural effusion. No pneumothorax. MEDIASTINUM/THADDEUS: No identified masses or lymphadenopathy. No supraclavicular lymphadenopathy. Fluid and debris is present within nondilated thoracic esophagus. HEART: Mild cardiomegaly with small volume pericardial fluid. There ismild left ventricular hypertrophy. AXILLA: No adenopathy. CHEST WALL: No masses. No subcutaneous air. HARDWARE/LINES/TUBES: Left chest wall pacemaker defibrillator with leadtips terminating in the right atrium and right ventricle. UPPER ABDOMEN: Cholelithiasis. Colonic diverticulosis. MUSCULOSKELETAL: No acute fractures or aggressive osseous lesions. IMPRESSION: 1. No CT evidence of pulmonary embolism. THIS IS AN ELECTRONICALLY VERIFIED FINAL REPORT 02/24/2025 10:45 AM - Electronically signed by Delta Armstrong M.D. AT T: Report ID: [id number] Reading Location: [place] [address] Danis Joe DO IMG CT PROCEDURES Final Res ult * Troponin T high-sensitivity 2-hour (02/24/2025 9:07 AM CDT) Trop T hs 9 <=14 ng/L Comment: Interpretive Data For further hscTnT resources including the diagnostic algorithm and an aid in interpretation, copy and paste this link: https://nrl.testcatalog.org/show/hsTrop Current Interpretive Data last revised 2020. Trop T hs delta 0 ng/L JOSÉ MIGUEL Trop T hs interp Insignificant JOSÉ MIGUEL Blood 02/24/2025 9:07 AM CDT 02/24/2025 9:10 AM CDT [facility] Final Result Performing Organization Address [facility] Co de Phone Number JOSÉ MIGUEL DWYER [address] [place] [address] [place] [address] * (ABNORMAL) D-dimer, quantitative (02/24/2025 9:07 AM CDT) D-Dimer 2,380(H) <=499 ng/mL FEU Comment: Interpretive data FDA approved the D-dimer, in conjunction with a low or moderate pretest probability score, to exclude venous thromboembolic events (VTE) (PE and DVT) in outpatients when the D-dimer result is < 500 ng/ml FEU. Evidence supports using an age-adjusted D-dimer cut-off for outpatients older than 50 (age x 10) to improve specificity without sacrificing sensitivity. Example: age 68, VTE cut-off 680 ng/ml FEU. References; Schouten HT et al. Brit Med J. 2013;346:f2492. Bobby et al. Annals Int Med. 2015;163:701-11. Current interpretive data was last revised on 2019. Blood 02/24/2025 9:07 AM CDT 02/24/2025 9:09 AM CDT Danis Grierhu DO LAB BLOOD ORDERABLES Final Result Performing Organization Address [facility] Co de Phone Number JOSÉ MIGUEL [address] [facility] [place] [address] * ECG 12 lead (02/24/2025 8:46 AM CDT) Ventricular Rate EKG/Min 64 BPM [facility] Atrial Rate 64 BPM [facility] NM-Interval (MSEC) 178 ms [facility] QRS-Interval (MSEC) 118 ms [facility] QT-Interval (MSEC) 450 ms [facility] QTc 464 ms [facility] P [place] 59 degrees [facility] R [place] -21 degrees [facility] T [place] 69 degrees [facility] Diagnosis Normal sinus rhythm Anteroseptal infarct (cited on or before 25-FEB-2024) Abnormal ECG When compared with ECG of 24-FEB-2025 06:40, Serial changes of Anteroseptal infarct Present Confirmed by CHANDRAKANT REINOSO M.D. ([id number]) on 02/24/2025 1:59:47 PM [facility] 02/24/2025 8:46 AM CDT 02/24/2025 1:59 PM CDT Danis Ed Joe DO ECG ORDERABLES Final Resul t [facility] * XR Chest 1 Vw Portable (if patient condition/safety warrant portable) (02/24/2025 7:34 AM CDT) Anatomical Region Laterality Modality Body, Chest N/A Computed Radiogr aphy 02/24/2025 7:46 AM CDT Narrative 02/24/2025 7:49 AM CDT EXAM DESCRIPTION: XR CHEST 1 VIEW REASON FOR STUDY: chest pain Patient came in c/o chest pain since yesterday evening. Patient states it is sternal and goes into her throat. TECHNIQUE: Single radiographic view of the chest. COMPARISON: 03/20/2024, 03/19/2024, 03/09/2024 FINDINGS: Suboptimal evaluation due to patient positioning, rotation, and/or technique. Findings made within these confines. LINES/TUBES: Left chest wall pacemaker with leads projecting over the right atrium and right ventricle. LUNGS: No focal consolidation. No pneumothorax. No pleural effusion. HEART/MEDIASTINUM: Unchanged cardiomediastinal contours. Borderline cardiomegaly. Coronary stent noted. BONES/SOFT TISSUES: No acute osseous abnormality. Unchanged osteochondral bodies or calcific tendinitis of the right shoulder. IMPRESSION: No radiographic evidence of an acute cardiopulmonary abnormality. THIS IS AN ELECTRONICALLY VERIFIED FINAL REPORT 02/24/2025 7:49 AM - Electronically signed by Alfonso MARTIN T: Report ID: [id number] Reading Location: [id number] Procedure Note Alfonso Finch MD - 02/24/2025 EXAM DESCRIPTION: XR CHEST 1 VIEW REASON FOR STUDY: chest pain Patient came in c/o chest pain since yesterday evening. Patient statesit is sternal and goes into her throat. TECHNIQUE: Single radiographic view of the chest. COMPARISON: 03/20/2024, 03/19/2024, 03/09/2024 FINDINGS: Suboptimal evaluation due to patient positioning, rotation,and/or technique. Findings made within these confines. LINES/TUBES: Left chest wall pacemaker with leads projecting over theright atrium and right ventricle. LUNGS: No focal consolidation. No pneumothorax. No pleural effusion. HEART/MEDIASTINUM: Unchanged cardiomediastinal contours. Borderline cardiomegaly. Coronary stent noted. BONES/SOFT TISSUES: No acute osseous abnormality. Unchangedosteochondral bodies or calcific tendinitis of the right shoulder. IMPRESSION: No radiographic evidence of an acute cardiopulmonaryabnormality. THIS IS AN ELECTRONICALLY VERIFIED FINAL REPORT 02/24/2025 7:49 AM - Electronically signed by Alfonso MARTIN T: Report ID: [id number] Reading Location: [id number] Danis Joe DO IMG XR PROCEDURES Final Res ult * Troponin T high-sensitivity series (baseline, 2hr, 4hr, 6hr) (02/24/2025 6:56 AM CDT) Trop T hs 9 <=14 ng/L Comment: Interpretive Data For further hscTnT resources including the diagnostic algorithm and an aid in interpretation, copy and paste this link: https://nrl.testcatalog.org/show/hsTrop Current Interpretive Data last revised 2020. Blood 02/24/2025 6:56 AM CDT 02/24/2025 6:59 AM CDT Danis Joe LAB BLOOD ORDERABLES Final Result Performing Organization Address [facility] Co de Phone Number JOSÉ MIGUEL [address] [address] * eGFR (02/24/2025 6:56 AM CDT) Pathologist [facility] eGFR 61 >=60 mL/min/1. 73 m2 Comment: Interpretive Data Reference Interval Normal >/= 90 mL/min/1.73m2 Mildly decreased* 60 - 89 mL/min/1.73m2 Mildly to moderately decreased 45 - 59 mL/min/1.73m2 Moderately to severely decreased 30 - 44 mL/min/1.73m2 Severely decreased 15 - 29 mL/min/1.73m2 Kidney Failure < 15 mL/min/1.73m2 *Relative to young adult level Estimated glomerular filtration rate is determined by the 2020 CKD-EPI equation recommended by the National Kidney Foundation (A Unifying Approach to GFR Estimation: Recommendations of the NKF-ASK Task Force on Reassessing the Inclusion of Race in Diagnosing Kidney Disease, JASN 2020). The CKD-EPI equation should not be used for patients with unstable renal function and has not been validated in children and those over 70. Current interpretive data was last reviewed 2021. Blood 02/24/2025 6:56 AM CDT 02/24/2025 6:59 AM CDT Danis Ed Joe DO LAB BLOOD ORDERABLES Final Result Performing Organization Address City/[facility]/ZIP Co de Phone Number JOSÉ MIGUEL [address] [place] [address] * Differential, auto (02/24/2025 6:56 AM CDT) Pathologist [facility] Neutrophil abs 5.83 1.50 - 6.50 K/cumm Imm gran abs 0.01 0.00 - 0.10 K/cumm [facility] Lymphocyte abs 1.01 0.80 - 3.30 K/cumm [facility] Monocyte abs 0.62 0.20 - 0.80 K/cumm [facility] Eosinophil abs 0.07 0.00 - 0.50 K/cumm [facility] Basophil abs 0.03 0.00 - 0.10 K/cumm [facility] Neutrophil pct 77.1 % [facility] Comment: Interpretive Data Percent cell count reference ranges are not reported, since discordance with absolute values may lead to misinterpretation of CBC data. Current Interpretive Data was last revised on 2018. Imm gran pct 0.1 % [facility] Comment: Interpretive Data Percent cell count reference ranges are not reported, since discordance with absolute values may lead to misinterpretation of CBC data. Current Interpretive Data was last revised on 2018. Lymphocyte pct 13.3 % [facility] Comment: Interpretive Data Percent cell count reference ranges are not reported, since discordance with absolute values may lead to misinterpretation of CBC data. Current Interpretive Data was last revised on 2018. Monocyte pct 8.2 % [facility] Comment: Interpretive Data Percent cell count reference ranges are not reported, since discordance with absolute values may lead to misinterpretation of CBC data. Current Interpretive Data was last revised on 2018. Eosinophil pct 0.9 % [facility] Comment: Interpretive Data Percent cell count reference ranges are not reported, since discordance with absolute values may lead to misinterpretation of CBC data. Current Interpretive Data was last revised on 2018. Basophil pct 0.4 % [facility] Comment: Interpretive Data Percent cell count reference ranges are not reported, since discordance with absolute values may lead to misinterpretation of CBC data. Current Interpretive Data was last revised on 2018. Blood 02/24/2025 6:56 AM CDT 02/24/2025 6:58 AM CDT Danis Joe DO LAB BLOOD ORDERABLES Final Result JOSÉ MIGUEL DWYER [address] [facility] Department [place] [address] * (ABNORMAL) CBC with auto differential (02/24/2025 6:56 AM CDT) [facility] WBC 7.57 3.80 - 9.90 K/cumm Hgb 10.8(L) 11.9 - 15.5 g/dL [facility] Hct 33.0(L) 35.6 - 45.5 % [facility] Plt 270 150 - 400 K/cumm [facility] MPV 9.3 9.1 - 12.3 fL [facility] RBC 4.19 3.90 - 5.20 M/cumm [facility] MCV 78.8(L) 81.3 - 96.4 fL [facility] MCH 25.8(L) 27.1 - 33.3 pg [facility] MCHC 32.7 32.3 - 35.7 g/dL [facility] RDW CV 19.4(H) 11.1 - 14.9 % [facility] RDW SD 55.8(H) 35.7 - 48.1 fL [facility] NRBC abs 0.00 0.00 - 0.01 K/cumm [facility] Blood Venous blood specimen / Unknown 02/24/2025 6:56 AM CDT 02/24/2025 6:58 AM CDT Danis Joe DO LAB BLOOD ORDERABLES Final Result [facility] [address] [facility] Department [place] [address] * (ABNORMAL) Comprehensive metabolic panel (02/24/2025 6:56 AM CDT) [facility] Sodium 134(L) 135 - 145 mmol/L Potassium, pl 3.6 3.3 - 4.9 mmol/L [facility] Chloride 99 97 - 110 mmol/L [facility] CO2 22 22 - 32 mmol/L [facility] Anion gap 13 2 - 15 mmol/L [facility] BUN 14 6 - 25 mg/dL [facility] Creatinine 1.00 0.60 - 1.10 mg/dL [facility] Glucose 126 70 - 199 mg/dL [facility] Comment: Interpretive Data Fasting glucose >/= 126 mg/dl is diagnostic for diabetes. Fasting is defined as no caloric intake for at least 8 hours. Fasting glucose between 100 mg/dl to 125 mg/dl is diagnostic of prediabetes. In a patient with classic symptoms of hyperglycemia or hyperglycemic crisis, a random glucose >/= 200 mg/dl is diagnostic for diabetes. In the absence of unequivocal hyperglycemia, results should be confirmed by repeat testing. The classification and Diagnosis of Diabetes Diabetes Care 2021; 46: S19-S40. Current interpretive data was last revised 2022. Calcium 9.5 8.5 - 10.3 mg/dL [facility] Bilirubin, total 0.7 0.1 - 1.2 mg/dL [facility] Protein, pl 7.1 6.5 - 8.5 g/dL [facility] Albumin 4.6 3.5 - 5.0 g/dL [facility] Alk phos 70 40 - 130 Units/L [facility] ALT 25 7 - 45 Units/L [facility] AST 38 10 - 45 Units/L [facility] Blood 02/24/2025 6:56 AM CDT 02/24/2025 6:59 AM CDT Danis Joe LAB BLOOD ORDERABLES Final Result JOSÉ MIGUEL [address] [facility] Department [place] [address] * ECG 12 lead (02/24/2025 6:40 AM CDT) Pathologist [facility] Ventricular Rate EKG/Min 64 BPM [facility] Atrial Rate 64 BPM [facility] NM-Interval (MSEC) 174 ms [facility] QRS-Interval (MSEC) 118 ms [facility] QT-Interval (MSEC) 428 ms [facility] QTc 441 ms [facility] P [place]une[place] 49 degrees [facility] R [place]une[place] -40 degrees [facility] T [place]une[place] 90 degrees [facility] Diagnosis Normal sinus rhythm Possible Left atrial enlargement Left axis deviation Inferior infarct , age undetermined Anteroseptal infarct (cited on or before 25-FEB-2024) Confirmed by CHANDRAKANT REINOSO M.D. ([id number]) on 02/24/2025 2:01:02 PM [facility] 02/24/2025 6:40 AM CDT 02/24/2025 2:01 PM CDT Danis Joe DO ECG ORDERABLES Final Resul t [facility] * Iron profile w/ IBC (02/12/2025 8:42 AM CDT) [facility] Iron Bind.Cap.(TIBC) 329 250 - 450 ug/dL [facility] - 01 UIBC 262 118 - 369 ug/dL [facility] - 01 Iron 67 27 - 139 ug/dL [facility] - 01 Iron saturation 20 15 - 55 % [facility] - 01 Blood 02/12/2025 8:42 AM CDT 02/12/2025 Narrative [facility] - 02/13/2025 6:07 AM CDT Performed at: [address] [place] [id number] [employer] Of [employer] Associate: Miguel Morris PhD, Phone: [phone] Ba Mae MD LAB BLOOD ORDERABL ES Final Result Performing Organization Address City/[facility]/ZIP Co de Phone Number [facility] - * Ferritin (02/12/2025 8:42 AM CDT) [facility] Ferritin 24 15 - 150 ng/mL [facility] - 01 Blood 02/12/2025 8:42 AM CDT 02/12/2025 Narrative [facility] - 02/13/2025 6:07 AM CDT Performed at: [address] [place] [id number] [employer] Associate: Miguel Morris PhD, Phone: [phone] Ba Mae MD LAB BLOOD ORDERABL ES Final Result [facility] - * (ABNORMAL) CBC with auto differential (02/12/2025 8:41 AM CDT) [facility] WBC 4.0 3.4 - 10.8 x10E3/uL [facility] - 01 RBC 4.35 3.77 - 5.28 x10E6/uL [facility] - 01 Hgb 11.1 11.1 - 15.9 g/dL [facility] - 01 Hct 35.0 34.0 - 46.6 % [facility] - 01 MCV 81 79 - 97 fL [facility] - 01 MCH 25.5(L) 26.6 - 33.0 pg [facility] - 01 MCHC 31.7 31.5 - 35.7 g/dL [facility] - 01 Rdw 20.1(H) 11.7 - 15.4 % [facility] - 01 Platelets 298 150 - 450 x10E3/uL [facility] - 01 Neutrophils pct 46 Not Estab. % [facility] - 01 Lymphs pct 36 Not Estab. % [facility] - 01 Monocytes pct 14 Not Estab. % [facility] - 01 Eosinophils pct 3 Not Estab. % [facility] - 01 Basophil pct 1 Not Estab. % [facility] - 01 Neutrophil abs 1.9 1.4 - 7.0 x10E3/uL [facility] - 01 Lymphs (Absolute) 1.5 0.7 - 3.1 x10E3/uL [facility] - 01 Monocyte abs 0.6 0.1 - 0.9 x10E3/uL [facility] - 01 Eosinophils, abs 0.1 0.0 - 0.4 x10E3/uL [facility] - 01 Basophils, abs 0.0 0.0 - 0.2 x10E3/uL [facility] - 01 Immature Granulocytes 0 Not Estab. % [facility] - 01 Immature Grans (Abs) 0.0 0.0 - 0.1 x10E3/uL [facility] - 01 Blood 02/12/2025 8:41 AM CDT 02/12/2025 Narrative [facility] - 02/13/2025 6:07 AM CDT Performed at: [facility] [id number] [employer] Associate: Miguel Morris PhD, Phone: [phone] us Ba Mae MD LAB BLOOD ORDERABL ES Final Result [facility] - 01 * Dexa Axial Skeleton Bone Density 1 or 2 Site (07/10/2024 10:32 AM CDT) Anatomical Region Laterality Modality Body N/A Mammography 07/10/2024 10:4 6 AM CDT Narrative 07/10/2024 10:47 AM CDT EXAM DESCRIPTION: DEXA AXIAL SKELETON BONE DENSITY 1 OR MORE SITES REASON FOR STUDY: 69 y/o year old F with given history of: Post menopausal status. History of taking hormone replacement therapy and calcium. 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 LEFT HIP: Total BMD is 0.873 g/cm2 T-score is -0.6 This is a 3.9% decrease in comparison to prior exam which is statistically significant. Femoral neck BMD is 0.801 g/cm2 T-score is -0.4 FRAX: FRAX not reported due to T-scores of hip, femoral neck and/or spine being at or above -1.0 (Normal). IMPRESSION: Normal bone mass. REFERENCE: Bone mineral density: T-Score: Normal (T-score above or = -1.0) Low bone mass (T-score between -1.0 and -2.5) replaces the previously used term osteopenia Osteoporosis (T-score = or below -2.5) Z-Score: Within the expected range for age (Z-score above -2.0) Below the expected range for age (Z-score is -2.0 or below) Please see below follow up recommendations. Medical evaluation for secondary causes of low bone mineral density may be appropriate. FRAX is a World Health Organization validated fracture risk assessment tool that calculates a person's 10 year probability of a major osteoporosis related fracture and hip fracture. According to the National Osteoporosis Foundation guidelines, postmenopausal women and men age 50 or older with low bone mass and a 10 year probability of a major osteoporosis related fracture = or greater than 20% or a 10 year probability of a hip fracture = or greater than 3% should be considered for pharmacological treatment for the prevention of osteoporosis. For further information, including treatment recommendations, please refer to the 2019 ISCD Official Positions (http://www.iscd.org) and the NOF's Clinician's Guide to Prevention and Treatment of Osteoporosis (http://www.nof.org/professionals/clinical-guidelines) THIS IS AN ELECTRONICALLY VERIFIED FINAL REPORT 07/10/2024 10:47 AM - Electronically signed by Sherita Garcia M.D. TW: TW Report ID: [id number] Reading Location: [id number] Procedure Note Sherita Garcia MD - 07/10/2024 EXAM DESCRIPTION: DEXA AXIAL SKELETON BONE DENSITY 1 OR MORE SITES REASON FOR STUDY: 69 y/o year old F with given history of: Post menopausal status. History of taking hormone replacement therapy andcalcium. 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 LEFT HIP: Total BMD is 0.873 g/cm2 T-score is -0.6 This is a 3.9% decrease in comparison to prior exam which is statistically significant. Femoral neck BMD is 0.801 g/cm2 T-score is -0.4 FRAX: FRAX not reported due to T-scores of hip, femoral neck and/or spine beingat or above -1.0 (Normal). IMPRESSION: Normal bone mass. REFERENCE: Bone mineral density: T-Score: Normal (T-score above or = -1.0) Low bone mass (T-score between -1.0 and -2.5) replaces thepreviously used term osteopenia Osteoporosis (T-score = or below -2.5) Z-Score: Within the expected range for age (Z-score above -2.0) Below the expected range for age (Z-score is -2.0 or below) Please see below follow up recommendations. Medical evaluation forsecondary causes of low bone mineral density may be appropriate. FRAX is a World Health Organization validated fracture risk assessmenttool that calculates a person's 10 year probability of a major osteoporosisrelated fracture and hip fracture. According to the National OsteoporosisFoundation guidelines, postmenopausal women and men age 50 or older with low bonemass and a 10 year probability of a major osteoporosis related fracture = or greater than 20% or a 10 year probability of a hip fracture = or greaterthan 3% should be considered for pharmacological treatment for the preventionof osteoporosis. For further information, including treatment recommendations, please referto the 2019 ISCD Official Positions (http://www.iscd.org) and the NOF's Clinician's Guide to Prevention and Treatment of Osteoporosis (http://www.nof.org/professionals/clinical-guidelines) THIS IS AN ELECTRONICALLY VERIFIED FINAL REPORT 07/10/2024 10:47 AM - Electronically signed by Sherita Garcia M.D. 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 02/27/2024 Insurance MEDICARE [facility] MEDICARE SUPPLEMENT INSURANCE MEDICARE [facility] MEDICARE SUPPLEMENT INSURANCE Advance Directives For more information, please contact: [phone] * Full Code (Latest Code Status on File) Date Activated Date Inactivated Comments 02/24/2025 1:51 PM 03/01/2025 7:38 PM * Full Code Date Activated Date Inactivated Comments 03/18/2024 5:03 PM 03/21/2024 7:39 PM * Full Code Date Activated Date Inactivated Comments 03/02/2024 2:50 PM 03/07/2024 3:44 PM * Full Code Date Activated Date Inactivated Comments 02/25/2024 12:43 PM 02/29/2024 6:06 PM Care Teams Manufacturing Lead Relationship Specialty Start Date End Date Gabriel Weldon DO [address] [address] PCP - General Internal Medicine 02/28/25
--- OUTSIDE RECORDS SUMMARY | 2025-04-17 09:13 | XMS_ITS | Encounter Summary ---
Author Organization [facility] Healthcare Address [address] [place] [address] Care Team Providers Care Research And Evaluation Manager Name Role Phone Juventino Rhodes MD Primary Care Provider [phone] Unknown, Notinfile Primary Care Provider Unavail able Gabriel Weldon DO Primary Care Provider [phone] Encounter Details Date Type Department Care Team (Late st Contact Info) Description 02/15/2025 Results Follow-Up [facility] Medical Group Cardiology [address] [facility] [address] [place] [phone] Ba Mae MD [facility] [facility] [place] [address] CBC with auto differential Social History Tobacco Use Types Packs/Day Years Used Date Smoking Tobacco: Never Smokeless Tobacco: Never Alcohol Use Standard Drinks/Week Comments Yes 0 (1 standard drink = 0.6 oz pur e alcohol) social 1 a week [facility] Utilities Answer Date Recorded In the past 12 months has [employer] electric, gas, oil, or water company threatened to shut off services in your home? No 03/19/2024 Social Connection and Isolat ion Panel [NHANES] Answer Date Recorded In a typical week, how many times do you talk on the phone with family, friends, or neighbors? More than three times a week 03/19/2024 How often do you get togethe r with friends or relatives? More than three times a week 03/19/2024 How often do you attend [facility] or buddhist services? More than 4 times per year 03/19/2024 Do you belong to any clubs o r organizations such as latter-day groups, unions, fraternal or athletic groups, or school groups? Yes 03/19/2024 How often do you attend meet ings of the clubs or organizations you belong to? Never 03/19/2024 Are you , , di vorced, , never , or living with a partner? 03/19/2024 AUDIT-C Answer Date Recorded Q1: How often do you have a drink containing alc ohol? 2-4 times a month 10/24/2024 Q2: How many drinks containi ng alcohol do you have on a typical day when you are drinking? 1 or 2 10/24/2024 Q3: How often do you have si x or more drinks on one occasion? Never 10/24/2024 Overall Financial Resource Strain (CARDIA) Answe r Date Recorded How hard is it for you to pa y for the very basics like food, housing, medical care, and heating? Not hard at all 03/19/2024 Hunger Vital Sign Answer Date Recorded Within the past 12 months, y ou worried that your food would run out before you got the money to buy more. Never true 03/19/20 24 Within the past 12 months, t he food you bought just didn't last and you didn't have money to get more. Never true 03/19/2024 PRAPARE - Transportation Answer Date Re corded In the past 12 months, has l ack of transportation kept you from medical appointments or from getting medications? No 12/2023 In the past 12 months, has l ack of transportation kept you from meetings, work, or from getting things needed for daily living? No 03/19/2024 Housing Stability Vital Sign Answer Mirza e [...] place to sleep or slept in a nursing home (including now)? No 02/27/2024 Housing Stability Vital Sign Answer Mirza e Recorded In the last 12 months, was t here a time when you were not able to pay the mortgage or rent on time? No 03/19/2024 In the past 12 months, how m any times have you moved where you were living? 0 03/19/2024 At any time in the past 12 m [facility], were you homeless or living in a nursing home (including now)? No 03/19/2024 Personal Safety Answer Date Recorded Have you ever been in or are you currently in a harmful physical or emotional relationship or is someone making you feel afraid or unsafe? 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
--- OUTSIDE RECORDS SUMMARY | 2025-04-17 09:13 | XMS_ITS | Clinical Summary ---
Author Organization [facility] Address [address] [place] [address] Care Team Providers Care Incendiary Powder Mixer Name Role Phone Gabriel Weldon DO Primary Care Provider [phone] Allergies Active Allergy Reactions Criticality Noted Date [...] mcg tablet Take 50 mcg by mouth station installer and repairer before breakfast Active lisinopriL (PRINIVIL,ZESTRI L) 10 mg tablet Take 1 tablet (10 mg total) by mouth daily 30 tablet 11 4 Active Additional Information Patient taking differently: 2.5 [...] tabletIndication s:Ischemic cardiomyopathy,C oronary artery disease involving red cliff coronary artery of red cliff heart without angina pectoris,Essenti al hypertension Take [...] encounter 03/02/2024 Coronary artery disease invo lving red cliff coronary artery of red cliff heart without angina pectoris 03/02/2024 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 03/02/2024 Hyponatremia 03/02/2024 Lower leg DVT (deep venous thromboembolism), acu te, right 03/02/2024 Dyslipidemia 02/28/2024 Ischemic cardiomyopathy 02/28/2024 NSTEMI (non-ST elevated myocardial infarction) 0 02/25/2024 Reduced libido 02/28/2022 Candidiasis of vagina 02/24/2022 Menopausal symptom 06/06/2018 Overview (06/05/2024): Post-menopausal state; Location: None Progress: Stable Added By: Selvin Howe Add to Current Problems: NO ProblemStatus: Resolve Encounters Date Type Department Care Team Description 04/10/2025 Telephone [facility] Cardiology [address] [facility] [address] [place] [phone] Ba Mae MD indigestion 04/09/2025 Telephone [facility] Nephrology at [address] [place] [address] Peter Bucio MD 03/29/2025 8:00 AM CDT Ancillary Procedure [address] [phone] Heart block AV second degree; Pacemaker 03/29/2025 Orders Only [address] [phone] Miscellaneous, Not In File 02/28/2025 10:06 AM CDT Anesthesia Event [facility] OR [address] [place] [address] Barak Gibbs, Oniel Martinez, THELMA 02/28/2025 8:00 AM CDT - 02/28/2025 10:35 AM CDT Surgery [facility] OR [address] [place] [address] Heri Parikh MD LAPAROSCOPIC CHOLECYSTECTOMY, INDOCYANINE GREEN 02/24/2025 7:56 AM CDT - 03/01/2025 3:13 PM CDT Hospital Encounter [facility] [address] [address] Danis Joe DO Shaukat, Bushra, MD Pham, Kevin, DO Potluri, Sobhana Krishna, MD RUQ pain (Primary Dx); Intractable nausea and vomiting; Diagnosis unknown Discharge Disposition: Discharge to home or self care 02/15/2025 Results Follow-Up [facility] Cardiology [address] [facility] [address] [place] [phone] Ba Mae MD CBC with auto differential 01/22/2025 2:30 PM CDT Office Visit [facility] Cardiology [address] [place] [address] [place] [phone] Ba Mea MD NSTEMI (non-ST elevated myocardial infarction) (HCC) (Primary Dx); Ischemic cardiomyopathy; 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 Family History Medical History Relation Name Comments Abdominal Aortic Aneurysm Father Aortic dissection Father Anemia Mother Kezia Vang Relation Name Status Comments Father Mother Kezia Vang Social History Tobacco Use Types Packs/Day Years Used Date Smoking Tobacco: Never Cigarettes Vaping Smokeless Tobacco: Never Tobacco Cessation:Counseling Given: Not Answered Alcohol Use Standard Drinks/Week Comments Yes 0 (1 standard drink = 0.6 oz pur e alcohol) social 1 a week [facility] [employer] Answer Date Recorded In the past 12 months has [employer], gas, oil, or water MST threatened to shut off services in your [...] week 02/25/2025 How often do you attend chur or episcopalian services? More than 4 times per year 02/25/2025 Do you belong to any clubs o r organizations such as gnosticist groups, unions, fraternal or athletic groups, or [...] place to sleep or slept in a mcfp (including now)? No 02/27/2024 Housing Stability Vital Sign Answer Mirza e Recorded In the last 12 months, was t here a time when you were not able to pay the mortgage or rent on time? No 02/25/2025 In the past 12 months, how m any times have you moved where you were living? 0 02/25/2025 At any time in the past [address] [facility], were you homeless or living in a mcfp (including now)? No 02/25/2025 Personal Safety Answer Date Recorded Have you ever been in or are you currently in a harmful physical or emotional relationship or is someone making you feel afraid or unsafe? Denies 02/24/2025 Comments Unknown Sex and Gender Information Value Date Recorded Sex Assigned at Not on file Legal Sex Female 12:14 PM APPLICATION SUPPORT CONSULTANT Gender Identity Female 04/18/2024 5:52 PM CDT Sexual Orientation Not on file Obstetrics History Last Filed Vital Signs Vital Sign Reading [...] 02/26/2025 9:00 PM CDT Plan of Treatment Health Maintenance Due Date Last Done Comments Breast Cancer Screening-Mammogram 1955 Colon Cancer Screening-Colonoscopy 1955 Depression Screening 1955 Hepatitis C Screening 1955 DTaP/Tdap/Td Vaccine (1 - Tdap) 1965 Hepatitis B Screening 1972 Zoster Vaccine (1 of 2) 2004 Well Visit 65+ 2019 Covid-19 Vaccine (6 - 2023-2 5 season) 2024 07/28/2022, 01/20/2022, 07/13/2021, Additional history exists Influenza Vaccine (#1) 2025 , 07/28/2022, 06/16/2021, Additional history exists Fall Risk Assessment 03/01/2026 03/01/2025 Osteoporosis Screening-Bone Density Scan 07/10/2026 07/10/2024, 06/13/2018 Pneumococcal vaccine 65+ Completed 09/29/2023 Medical Devices Implanted Type Area Photoengraving Finisher Device Identifier Shelf Expiration Date Model / Serial / Lot [employer] Assurity Mri 09a22ss 2 Chamber Is-1 Connector Thk6mm Pacemaker [id number] - [id number] - [id number] Implanted:Qty: 1 on 03/19/2024 by Kobe Martinez MD at [facility] Pacemaker [employer] [id number] 06/16/2025 [id number] / [id number] / Medtronic Card Vasc Surgery 2.25 X 38mm [place] Rx Coronary Stent [id number] - [id number] Implanted:Qty: 1 on 02/25/2024 by Mathew Perez MD at [facility] Med[employer]onic Card Vasc Surgery 06/23/2026 [id number] / / [id number] [employer] Angio-Seal Vip Bondek-Plus 8fr .038in 70cm Hemostatic Latex Free [id number] - [id number] Implanted:Qty: 1 on 02/25/2024 by Mathew Perez MD at [facility] [employer] 09/19/2024 [id number] / / [id number] Med[employer]onic Inc Tyrx Absorbable Antibacterial Envelope-Med 2.7x2.5in [id number] - [id number] Implanted:Qty: 1 on 03/19/2024 by Kobe Martinez MD at [facility] [employer] Inc [id number] / / Herring V[employer] Active Fixation Steroid Eluting Latex Free Sterile Right Atrium Ventricle Ultipace 52cm [id number]/52 - [id number] - [id number] Implanted:Qty: 1 on 03/19/2024 by Kobe Martinez MD at [facility] [employer] [id number] 10/16/2026 [id number] / 2 / [id number] / [employer] Active Fixation Steroid Eluting Latex Free Sterile Right Atrium Ventricle Ultipace 58cm [id number]/58 - [id number] - [id number] Implanted:Qty: 1 on 03/19/2024 by Kobe Martinez MD at [facility] [employer] [id number] 11/16/2026 LPA12 16/03 8 / [id number] / Procedures Procedure Name Priority Date/Time Associated [...] Routine 02/28/2025 11:09 AM CDT Diagnosis unknown CO AN PROCEDURE PLACEHOLDER Routine 02/28/2025 10:30 AM CDT CO AN ELECTIVE ENDOTRACHEAL AIRWAY Routine 02/28/2025 10:30 [...] (HCC) Ischemic cardiomyopathy Coronary artery disease involving red cliff coronary artery of red cliff heart without angina pectoris Essential hypertension S/P coronary artery stent placement Other iron deficiency anemia IRON PROFILE W/ IBC Routine 02/12/2025 8 :42 AM CDT NSTEMI (non-ST elevated myocardial infarction) (HCC) Ischemic cardiomyopathy Coronary artery disease involving red cliff coronary artery of red cliff heart without angina pectoris Essential hypertension S/P coronary artery stent placement Other iron deficiency anemia CBC WITH AUTO DIFFERENTIAL Routine 02/12/2025 8:41 AM CDT NSTEMI (non-ST elevated myocardial infarction) (HCC) Ischemic cardiomyopathy Coronary artery disease involving red cliff coronary artery of red cliff heart without angina pectoris Essential hypertension S/P [...] MD LAB BLOOD ORDERABLES Final Resu lt Performing Organization Address [facility] Co de Phone Number [facility] * DEVICE CHECK - REMOTE (03/29/2025 2:00 AM CDT) Anatomical Region Laterality Modality Other 03/29/2025 2:00 AM CDT us Not In File Miscellaneous CV CARDIAC SERVICES CO OCEDURES Final Result * (ABNORMAL) POCT glucose (03/01/2025 12:23 PM CDT) Glucose, POC 239(H) 70 - 199 mg/dL Glucose comment 1 Use This Result JOSÉ MIGUEL Blood 03/01/2025 12:2 3 PM CDT 03/01/2025 12:23 PM CDT Sandra Mcnamara MD LAB POCT ORDERABLES - DEVICE Final Result Performing Organization Address [facility] Co de Phone Number [address] [place] [address] * (ABNORMAL) POCT glucose (03/01/2025 11:42 AM CDT) Glucose, POC 252(H) 70 - 199 mg/dL Glucose comment 1 Use This Result JOSÉ MIGUEL Blood 03/01/2025 11:4 2 AM CDT 03/01/2025 11:42 AM CDT Sandra Mcnamara MD LAB POCT ORDERABLES - DEVICE Final Result Performing Organization Address [facility] Co de Phone Number [address] [place] [address] * POCT glucose (03/01/2025 7:37 AM CDT) Glucose, POC 110 70 - 199 mg/dL Glucose comment 1 Use This Result JOSÉ MIGUEL Blood 03/01/2025 7:37 AM CDT 03/01/2025 7:37 AM CDT Sandra Mcnamara MD LAB POCT ORDERABLES - DEVICE Final Result Performing Organization Address [facility]/ZIP Co de Phone Number JOSÉ MIGUEL [address] [employer] [place] [address] * (ABNORMAL) eGFR (03/01/2025 5:25 AM CDT) eGFR 57(L) >=60 mL/min/1. 73 m2 Comment: [...] MD LAB BLOOD ORDERABLES Final Re sult [address] [place] [address] * (ABNORMAL) Differential, auto (03/01/2025 5:25 AM CDT) Pathologist [facility] Neutrophil abs 3.55 1.50 - 6.50 K/cumm Imm gran abs 0.02 0.00 - 0.10 K/cumm [facility] Lymphocyte abs 0.65(L) 0.80 - 3.30 K/cumm [facility] Monocyte abs 0.79 0.20 - 0.80 K/cumm [facility] Eosinophil abs 0.00 0.00 - 0.50 K/cumm [facility] Basophil abs 0.01 0.00 - 0.10 K/cumm [facility] Neutrophil pct 70.8 % [facility] Comment: Interpretive Data Percent cell count reference ranges are not reported, since discordance with absolute values may lead to misinterpretation of CBC data. Current Interpretive Data was last revised on 2018. Imm gran pct 0.4 % [facility] Comment: Interpretive Data Percent cell count reference ranges are not reported, since discordance with absolute values may lead to misinterpretation of CBC data. Current Interpretive Data was last revised on 2018. Lymphocyte pct 12.9 % [facility] Comment: Interpretive Data Percent cell count reference ranges are not reported, since discordance with absolute values may lead to misinterpretation of CBC data. Current Interpretive Data was last revised on 2018. Monocyte pct 15.7 % [facility] Comment: Interpretive Data Percent cell count reference ranges are not reported, since discordance with absolute values may lead to misinterpretation of CBC data. Current Interpretive Data was last revised on 2018. Eosinophil pct 0.0 % [facility] Comment: Interpretive Data Percent cell count reference ranges are not reported, since discordance with absolute values may lead to misinterpretation of CBC data. Current Interpretive Data was last revised on 2018. Basophil pct 0.2 % [facility] Comment: Interpretive Data Percent cell count reference ranges are not reported, since discordance with absolute values may lead to misinterpretation of CBC data. Current Interpretive Data was last revised on 2018. Blood 03/01/2025 5:25 AM CDT 03/01/2025 5:41 AM CDT Heri Parikh MD LAB BLOOD ORDERABLES Final Re sult Performing Organization Address [facility] Co de Phone Number JOSÉ MIGUEL [address] [place] [employer] [place] [address] * (ABNORMAL) CBC with auto differential (03/01/2025 5:25 AM CDT) Pathologist [facility] WBC 5.02 3.80 - 9.90 K/cumm Hgb 8.6(L) 11.9 - 15.5 g/dL [facility] Hct 26.4(L) 35.6 - 45.5 % [facility] Plt 279 150 - 400 K/cumm [facility] MPV 9.7 9.1 - 12.3 fL [facility] RBC 3.29(L) 3.90 - 5.20 M/cumm [facility] MCV 80.2(L) 81.3 - 96.4 fL [facility] MCH 26.1(L) 27.1 - 33.3 pg [facility] MCHC 32.6 32.3 - 35.7 g/dL [facility] RDW CV 19.6(H) 11.1 - 14.9 % [facility] RDW SD 57.4(H) 35.7 - 48.1 fL [facility] NRBC abs 0.00 0.00 - 0.01 K/cumm [facility] Blood 03/01/2025 5:25 AM CDT 03/01/2025 5:41 AM CDT Heri Parikh MD LAB BLOOD ORDERABLES Final Re sult Performing Organization Address [facility]/ZIP Co de Phone Number JOSÉ MIGUEL [address] [employer] [place] [address] * (ABNORMAL) Comprehensive metabolic panel (03/01/2025 5:25 AM CDT) Pathologist [facility] Sodium 137 135 - 145 mmol/L Potassium, pl 4.3 3.3 - 4.9 mmol/L [facility] Chloride 107 97 - 110 mmol/L [facility] CO2 21(L) 22 - 32 mmol/L [facility] Anion gap 9 2 - 15 mmol/L [facility] BUN 9 6 - 25 mg/dL [facility] Creatinine 1.05 0.60 - 1.10 mg/dL [facility] Glucose 106 70 - 199 mg/dL [facility] Comment: Interpretive Data Fasting glucose >/= 126 [...] 2022. Calcium 8.4(L) 8.5 - 10.3 mg/dL [facility] Bilirubin, total 0.6 0.1 - 1.2 mg/dL [facility] Protein, pl 5.7(L) 6.5 - 8.5 g/dL [facility] Albumin 3.5 3.5 - 5.0 g/dL [facility] Alk phos 91 40 - 130 Units/L [facility] ALT 33 7 - 45 Units/L [facility] AST 58(H) 10 - 45 Units/L [facility] Blood 03/01/2025 5:25 AM CDT 03/01/2025 5:42 AM CDT Heri Parikh MD LAB BLOOD ORDERABLES Final Re sult [facility] [address] [facility] [place] [address] * (ABNORMAL) POCT glucose (02/28/2025 7:44 PM CDT) [facility] Glucose, POC 213(H) 70 - 199 mg/dL Glucose comment 1 Use This Result [facility] Glucose comment 2 RN/MD Notified [facility] Blood 02/28/2025 7:44 PM CDT 02/28/2025 7:44 PM CDT Sandra Mcnamara MD LAB POCT ORDERABLES - DEVICE Final Result Performing Organization Address City/[facility]/ZIP Co de Phone Number JOSÉ MIGUEL [address] [place] [address] * POCT glucose (02/28/2025 4:34 PM CDT) Glucose, POC 127 70 - 199 mg/dL Glucose comment 1 Use This Result [facility]NOTE [facility] Blood 02/28/2025 4:34 PM CDT 02/28/2025 4:34 PM CDT Sandra Mcnamara MD LAB POCT ORDERABLES - DEVICE Final Result Performing Organization Address [facility] Co de Phone Number FRANKIE[address] [place] [address] * POCT glucose (02/28/2025 12:30 PM CDT) Glucose, POC 111 70 - 199 mg/dL Blood 02/28/2025 12:3 0 PM CDT 02/28/2025 12:30 PM CDT Sandra Mcnamara MD LAB POCT ORDERABLES - DEVICE Final Result Performing Organization Address [facility] Co de Phone Number FR[address]IE[address] [place] [address] * POCT glucose (02/28/2025 12:01 PM CDT) Glucose, POC 138 70 - 199 mg/dL Blood 02/28/2025 12:0 1 PM CDT 02/28/2025 12:01 PM CDT Snadra Mcnamara MD LAB POCT ORDERABLES - DEVICE Final Result Performing Organization Address [facility] Co de Phone Number [address] [place] [address] * Surgical pathology (02/28/2025 11:09 AM CDT) Tissue (Gallbladder) 02/28/2025 11:09 AM CDT Narrative PATHOLOGY [facility] - 03/04/2025 2:25 PM CDT [facility] Department of Pathology [facility] [place], [place] [address] Note to Patients: This report may contain [...] : 1955 (Age: 69) Gender: F Address: [address] [place] [address] [facility] #: [id number] Service: Medical Location: Patient Type: [facility] INPATIENT Taken: 02/28/2025 Received: 02/28/2025 Accessioned: 02/28/2025 [...] and the wall thickness averages 0.2 cm. [employer] Representative sections to include the cystic duct margin and full-thickness sections from the neck, body and fundus are submitted. Labeled A1. Essie Rivera jjmhb/02/28/2025 14:47 JERAMY Gonzalez, PA [facility] Microscopic slide review and interpretation for this case was performed at [facility], Department of Surgical Pathology, [address] [facility] [place], [place] [id number], [place] [address] CLIA # [id number] us Heri Parikh MD LAB PATHOLOGY ORDERABLES Anisha petty Result PATHOLOGY [facility] * CO AN ELECTIVE ENDOTRACHEAL AIRWAY, CO AN PROCEDURE PLACEHOLDER (02/28/2025 10:30 AM CDT) Narrative Oniel Arnett CRNA - 02/28/2025 10:30 AM CDT Oniel Arnett CRNA 02/28/2025 10:30 AM Airway Patient location: OR Urgency: elective Date/time: 02/28/2025 10:17 AM Indications for airway management: anesthesia Difficult airway: no Staff: Supervising provider: Barak Gibbs DO Placed by: CONSUMER LENDER: Oniel Arnett CRNA Emergent airway documentation: Risks [...] - DEVICE Final Result Performing Organization Address [facility]/ZIP Co de Phone Number [address] [place] [address] * POCT glucose (02/28/2025 7:43 AM CDT) Pathologist [facility] Glucose, POC 106 70 - 199 mg/dL Glucose comment 1 Use This Result [facility] Glucose comment 2 RN/MD Notified [facility] Blood 02/28/2025 7:43 AM CDT 02/28/2025 7:43 AM CDT Sandra Mcnamara MD LAB POCT ORDERABLES - DEVICE Final Result Performing Organization Address City/[facility]/ZIP Co de Phone Number [address] [place] [address] * eGFR (02/28/2025 6:42 AM CDT) eGFR 61 >=60 mL/min/1. 73 m2 Comment: [...] MD LAB BLOOD ORDERABLES Final Res ult [facility] [address] [facility] [place] [address] * Differential, auto (02/28/2025 6:42 AM CDT) Neutrophil abs 1.83 1.50 - 6.50 K/cumm Imm gran abs 0.01 0.00 - 0.10 K/cumm [facility] Lymphocyte abs 0.99 0.80 - 3.30 K/cumm [facility] Monocyte abs 0.61 0.20 - 0.80 K/cumm [facility] Eosinophil abs 0.10 0.00 - 0.50 K/cumm [facility] Basophil abs 0.03 0.00 - 0.10 K/cumm [facility] Neutrophil pct 51.3 % [facility] Comment: Interpretive Data Percent cell count reference ranges are not reported, since discordance with absolute values may lead to misinterpretation of CBC data. Current Interpretive Data was last revised on 2018. Imm gran pct 0.3 % [facility] Comment: Interpretive Data Percent cell count reference ranges are not reported, since discordance with absolute values may lead to misinterpretation of CBC data. Current Interpretive Data was last revised on 2018. Lymphocyte pct 27.7 % [facility] Comment: Interpretive Data Percent cell count reference ranges are not reported, since discordance with absolute values may lead to misinterpretation of CBC data. Current Interpretive Data was last revised on 2018. Monocyte pct 17.1 % [facility] Comment: Interpretive Data Percent cell count reference ranges are not reported, since discordance with absolute values may lead to misinterpretation of CBC data. Current Interpretive Data was last revised on 2018. Eosinophil pct 2.8 % [facility] Comment: Interpretive Data Percent cell count reference ranges are not reported, since discordance with absolute values may lead to misinterpretation of CBC data. Current Interpretive Data was last revised on 2018. Basophil pct 0.8 % [facility] Comment: Interpretive Data Percent cell count reference ranges are not reported, since discordance with absolute values may lead to misinterpretation of CBC data. Current Interpretive Data was last revised on 2018. Blood 02/28/2025 6:42 AM CDT 02/28/2025 7:22 AM CDT us Lisa Matias MD LAB BLOOD ORDERABLES Final Res ult [place] [id number] [facility] [place] [address] * (ABNORMAL) CBC with auto differential (02/28/2025 6:42 AM CDT) WBC 3.57(L) 3.80 - 9.90 K/cumm Hgb 8.7(L) 11.9 - 15.5 g/dL [facility] Hct 27.5(L) 35.6 - 45.5 % [facility] Plt 228 150 - 400 K/cumm [facility] MPV 10.0 9.1 - 12.3 fL [facility] RBC 3.41(L) 3.90 - 5.20 M/cumm [facility] MCV 80.6(L) 81.3 - 96.4 fL [facility] MCH 25.5(L) 27.1 - 33.3 pg [facility] MCHC 31.6(L) 32.3 - 35.7 g/dL [facility] RDW CV 19.9(H) 11.1 - 14.9 % [facility] RDW SD 58.4(H) 35.7 - 48.1 fL [facility] NRBC abs 0.00 0.00 - 0.01 K/cumm [facility] Blood 02/28/2025 6:42 AM CDT 02/28/2025 7:22 AM CDT Heri Parikh MD LAB BLOOD ORDERABLES Final [facility] [address] [facility] [place] [address] * (ABNORMAL) Comprehensive metabolic panel (02/28/2025 6:42 AM CDT) Pathologist [facility] Sodium 139 135 - 145 mmol/L Potassium, pl 3.6 3.3 - 4.9 mmol/L [facility] Chloride 108 97 - 110 mmol/L [facility] CO2 21(L) 22 - 32 mmol/L [facility] Anion gap 10 2 - 15 mmol/L [facility] BUN 6 6 - 25 mg/dL [facility] Creatinine 0.99 0.60 - 1.10 mg/dL [facility] Glucose 92 70 - 199 mg/dL [facility] Comment: Interpretive Data Fasting glucose >/= 126 [...] 2022. Calcium 8.5 8.5 - 10.3 mg/dL [facility] Bilirubin, total 0.7 0.1 - 1.2 mg/dL [facility] Protein, pl 6.0(L) 6.5 - 8.5 g/dL [facility] Albumin 3.4(L) 3.5 - 5.0 g/dL [facility] Alk phos 93 40 - 130 Units/L [facility] ALT 24 7 - 45 Units/L [facility] AST 43 10 - 45 Units/L [facility] Blood 02/28/2025 6:42 AM CDT 02/28/2025 7:22 AM CDT Heri Parikh MD LAB BLOOD ORDERABLES Final Re sult Performing Organization Address City/[facility] Co de Phone Number FRANKIE[address] [place] [address] * POCT glucose (02/28/2025 4:05 AM CDT) Glucose, POC 100 70 - 199 mg/dL Glucose comment 1 Use This Result JOSÉ MIGUEL Blood 02/28/2025 4:05 AM CDT 02/28/2025 4:05 AM CDT Sandra Mcnamara MD LAB POCT ORDERABLES - DEVICE Final Result Performing Organization Address [facility] de Phone Number [address] [place] [address] * POCT glucose (02/28/2025 12:02 AM CDT) Glucose, POC 101 70 - 199 mg/dL Glucose comment 1 Use This Result JOSÉ MIGUEL Blood 02/28/2025 12:0 2 AM CDT 02/28/2025 12:02 AM CDT Sandra Mcnamara MD LAB POCT ORDERABLES - DEVICE Final Result Performing Organization Address [facility] Co de Phone Number FR[address]IE[address] [place] [address] * POCT glucose (02/27/2025 8:23 PM CDT) Glucose, POC 129 70 - 199 mg/dL Blood 02/27/2025 8:23 PM CDT 02/27/2025 8:23 PM CDT Sandra Mcnamara MD LAB POCT ORDERABLES - DEVICE Final Result Performing Organization Address City/[facility]/ZIP Co de Phone Number CER[address] [place] [address] * POCT glucose (02/27/2025 5:14 PM CDT) Glucose, POC 170 70 - 199 mg/dL Blood 02/27/2025 5:14 PM CDT 02/27/2025 5:14 PM CDT Sandra Mcnamara MD LAB POCT ORDERABLES - DEVICE Final Result Performing Organization Address [facility] Co de Phone Number [address] [place] [address] * POCT glucose (02/27/2025 11:33 AM CDT) Glucose, POC 114 70 - 199 mg/dL Blood 02/27/2025 11:3 3 AM CDT 02/27/2025 11:33 AM CDT Sandra Mcnamara MD LAB POCT ORDERABLES - DEVICE Final Result Performing Organization Address City/[facility] Co de Phone Number [address] [place] [address] * POCT glucose (02/27/2025 7:32 AM CDT) Glucose, POC 115 70 - 199 mg/dL Blood 02/27/2025 7:32 AM CDT 02/27/2025 7:32 AM CDT Sandra Mcnamara MD LAB POCT ORDERABLES - DEVICE Final Result Performing Organization Address City/[facility]/ZIP Co de Phone Number [address] [place] [address] * eGFR (02/27/2025 5:18 AM CDT) eGFR 65 >=60 mL/min/1. 73 m2 Comment: [...] MD LAB BLOOD ORDERABLES Final Res ult [place] [address] [facility] [place] [address] * (ABNORMAL) Differential, auto (02/27/2025 5:18 AM CDT) Neutrophil abs 2.44 1.50 - 6.50 K/cumm Imm gran abs 0.00 0.00 - 0.10 K/cumm [facility] Lymphocyte abs 0.99 0.80 - 3.30 K/cumm [facility] Monocyte abs 0.83(H) 0.20 - 0.80 K/cumm [facility] Eosinophil abs 0.10 0.00 - 0.50 K/cumm [facility] Basophil abs 0.04 0.00 - 0.10 K/cumm [facility] Neutrophil pct 55.4 % [facility] Comment: Interpretive Data Percent cell count reference ranges are not reported, since discordance with absolute values may lead to misinterpretation of CBC data. Current Interpretive Data was last revised on 2018. Imm gran pct 0.0 % [facility] Comment: Interpretive Data Percent cell count reference ranges are not reported, since discordance with absolute values may lead to misinterpretation of CBC data. Current Interpretive Data was last revised on 2018. Lymphocyte pct 22.5 % [facility] Comment: Interpretive Data Percent cell count reference ranges are not reported, since discordance with absolute values may lead to misinterpretation of CBC data. Current Interpretive Data was last revised on 2018. Monocyte pct 18.9 % [facility] Comment: Interpretive Data Percent cell count reference ranges are not reported, since discordance with absolute values may lead to misinterpretation of CBC data. Current Interpretive Data was last revised on 2018. Eosinophil pct 2.3 % [facility] Comment: Interpretive Data Percent cell count reference ranges are not reported, since discordance with absolute values may lead to misinterpretation of CBC data. Current Interpretive Data was last revised on 2018. Basophil pct 0.9 % [facility] Comment: Interpretive Data Percent cell count reference ranges are not reported, since discordance with absolute values may lead to misinterpretation of CBC data. Current Interpretive Data was last revised on 2018. Blood 02/27/2025 5:18 AM CDT 02/27/2025 6:03 AM CDT us Lisa Matias MD LAB BLOOD ORDERABLES Final Res ult [facility] [address] [facility] [place] [address] * (ABNORMAL) CBC with auto differential (02/27/2025 5:18 AM CDT) WBC 4.40 3.80 - 9.90 K/cumm Hgb 8.3(L) 11.9 - 15.5 g/dL [facility] Hct 25.7(L) 35.6 - 45.5 % [facility] Plt 214 150 - 400 K/cumm [facility] MPV 10.3 9.1 - 12.3 fL [facility] RBC 3.16(L) 3.90 - 5.20 M/cumm [facility] MCV 81.3 81.3 - 96.4 fL [facility] MCH 26.3(L) 27.1 - 33.3 pg [facility] MCHC 32.3 32.3 - 35.7 g/dL [facility] RDW CV 19.8(H) 11.1 - 14.9 % [facility] RDW SD 58.9(H) 35.7 - 48.1 fL [facility] NRBC abs 0.00 0.00 - 0.01 K/cumm [facility] Blood 02/27/2025 5:18 AM CDT 02/27/2025 6:03 AM CDT us Heri Parikh MD LAB BLOOD ORDERABLES Final Re sult [facility] [address] [facility] [place] [address] * (ABNORMAL) Comprehensive metabolic panel (02/27/2025 5:18 AM CDT) Sodium 138 135 - 145 mmol/L Potassium, pl 3.6 3.3 - 4.9 mmol/L [facility] Chloride 109 97 - 110 mmol/L [facility] CO2 21(L) 22 - 32 mmol/L [facility] Anion gap 8 2 - 15 mmol/L [facility] BUN 9 6 - 25 mg/dL [facility] Creatinine 0.94 0.60 - 1.10 mg/dL [facility] Glucose 101 70 - 199 mg/dL [facility] Comment: Interpretive Data Fasting glucose >/= 126 [...] 2022. Calcium 7.8(L) 8.5 - 10.3 mg/dL [facility] Bilirubin, total 0.7 0.1 - 1.2 mg/dL [facility] Protein, pl 5.2(L) 6.5 - 8.5 g/dL [facility] Albumin 3.3(L) 3.5 - 5.0 g/dL [facility] Alk phos 75 40 - 130 Units/L [facility] ALT 19 7 - 45 Units/L [facility] AST 29 10 - 45 Units/L [facility] Blood 02/27/2025 5:18 AM CDT 02/27/2025 6:03 AM CDT us Heri Parikh MD LAB BLOOD ORDERABLES Final Re sult Performing Organization Address City/[facility]/ZIP Co de Phone Number [address] [place] [address] * POCT glucose (02/27/2025 4:02 AM CDT) Glucose, POC 118 70 - 199 mg/dL Glucose comment 1 Use This Result [facility] Blood 02/27/2025 4:02 AM CDT 02/27/2025 4:02 AM CDT Sandra Mcnamara MD LAB POCT ORDERABLES - DEVICE Final Result Performing Organization Address [facility] Co de Phone Number [address] [place] [address] * POCT glucose (02/26/2025 11:55 PM CDT) Glucose, POC 113 70 - 199 mg/dL Glucose comment 1 Use This Result [facility] Blood 02/26/2025 11:5 5 PM CDT 02/26/2025 11:55 PM CDT Sandra Mcnamara MD LAB POCT ORDERABLES - DEVICE Final Result Performing Organization Address City/[facility]/ZIP Co de Phone Number [address] [place] [address] * POCT glucose (02/26/2025 8:25 PM CDT) Glucose, POC 137 70 - 199 mg/dL Glucose comment 1 Use This Result JOSÉ MIGUEL Blood 02/26/2025 8:25 PM CDT 02/26/2025 8:25 PM CDT Sandra Mcnamara MD LAB POCT ORDERABLES - DEVICE Final Result Performing Organization Address City/[facility] Co de Phone Number [address] [place] [address] * POCT glucose (02/26/2025 4:59 PM CDT) Glucose, POC 154 70 - 199 mg/dL Blood 02/26/2025 4:59 PM CDT 02/26/2025 4:59 PM CDT Sandra Mcnamara MD LAB POCT ORDERABLES - DEVICE Final Result Performing Organization Address [facility] de Phone Number [address] [place] [address] * POCT glucose (02/26/2025 11:17 AM CDT) Glucose, POC 149 70 - 199 mg/dL Blood 02/26/2025 11:1 7 AM CDT 02/26/2025 11:17 AM CDT Sandra Mcnamara MD LAB POCT ORDERABLES - DEVICE Final Result Performing Organization Address [facility] de Phone Number [address] [place] [address] * POCT glucose (02/26/2025 7:15 AM CDT) Glucose, POC 109 70 - 199 mg/dL Blood 02/26/2025 7:15 AM CDT 02/26/2025 7:15 AM CDT us Sandra Mcnamara MD LAB POCT ORDERABLES - DEVICE Final Result Performing Organization Address [facility] Co de Phone Number JOSÉ MIGUEL [address] [place] [address] * eGFR (02/26/2025 5:46 AM CDT) Pathologist [facility] eGFR 78 >=60 mL/min/1. 73 m2 Comment: [...] ORDERABLES Final Res ult Performing Organization Address [facility]/ZIP Co de Phone Number [facility] 3[facility] [address] [place] [address] [place] [employer] [place] [address] * (ABNORMAL) Differential, auto (02/26/2025 5:46 AM CDT) Pathologist [facility] Neutrophil abs 2.94 1.50 - 6.50 K/cumm Imm gran abs 0.01 0.00 - 0.10 K/cumm [facility] Lymphocyte abs 1.05 0.80 - 3.30 K/cumm [facility] Monocyte abs 0.88(H) 0.20 - 0.80 K/cumm [facility] Eosinophil abs 0.07 0.00 - 0.50 K/cumm [facility] Basophil abs 0.03 0.00 - 0.10 K/cumm [facility] Neutrophil pct 59.0 % [facility] Comment: Interpretive Data Percent cell count reference ranges are not reported, since discordance with absolute values may lead to misinterpretation of CBC data. Current Interpretive Data was last revised on 2018. Imm gran pct 0.2 % [facility] Comment: Interpretive Data Percent cell count reference ranges are not reported, since discordance with absolute values may lead to misinterpretation of CBC data. Current Interpretive Data was last revised on 2018. Lymphocyte pct 21.1 % [facility] Comment: Interpretive Data Percent cell count reference ranges are not reported, since discordance with absolute values may lead to misinterpretation of CBC data. Current Interpretive Data was last revised on 2018. Monocyte pct 17.7 % [facility] Comment: Interpretive Data Percent cell count reference ranges are not reported, since discordance with absolute values may lead to misinterpretation of CBC data. Current Interpretive Data was last revised on 2018. Eosinophil pct 1.4 % [facility] Comment: Interpretive Data Percent cell count reference ranges are not reported, since discordance with absolute values may lead to misinterpretation of CBC data. Current Interpretive Data was last revised on 2018. Basophil pct 0.6 % [facility] Comment: Interpretive Data Percent cell count reference ranges are not reported, since discordance with absolute values may lead to misinterpretation of CBC data. Current Interpretive Data was last revised on 2018. Blood 02/26/2025 5:46 AM CDT 02/26/2025 6:09 AM CDT us Lisa Matias MD LAB BLOOD ORDERABLES Final Res ult JOS[facility] MIGUEL [address] [facility] [place] [address] * (ABNORMAL) CBC with auto differential (02/26/2025 5:46 AM CDT) [facility] WBC 4.98 3.80 - 9.90 K/cumm Hgb 8.8(L) 11.9 - 15.5 g/dL [facility] Hct 27.7(L) 35.6 - 45.5 % [facility] Plt 192 150 - 400 K/cumm [facility] MPV 9.9 9.1 - 12.3 fL [facility] RBC 3.44(L) 3.90 - 5.20 M/cumm [facility] MCV 80.5(L) 81.3 - 96.4 fL [facility] MCH 25.6(L) 27.1 - 33.3 pg [facility] MCHC 31.8(L) 32.3 - 35.7 g/dL [facility] RDW CV 20.3(H) 11.1 - 14.9 % [facility] RDW SD 59.8(H) 35.7 - 48.1 fL [facility] NRBC abs 0.00 0.00 - 0.01 K/cumm [facility] Blood 02/26/2025 5:46 AM CDT 02/26/2025 6:09 AM CDT Heri Parikh MD LAB BLOOD ORDERABLES Final Re sult [facility] [address] [facility] [place] [address] * (ABNORMAL) Comprehensive metabolic panel (02/26/2025 5:46 AM CDT) [facility] Sodium 134(L) 135 - 145 mmol/L Potassium, pl 3.7 3.3 - 4.9 mmol/L [facility] Chloride 107 97 - 110 mmol/L [facility] CO2 19(L) 22 - 32 mmol/L [facility] Anion gap 8 2 - 15 mmol/L [facility] BUN 14 6 - 25 mg/dL [facility] Creatinine 0.81 0.60 - 1.10 mg/dL [facility] Glucose 99 70 - 199 mg/dL [facility] Comment: Interpretive Data Fasting glucose >/= 126 [...] 2022. Calcium 7.8(L) 8.5 - 10.3 mg/dL [facility] Bilirubin, total 0.8 0.1 - 1.2 mg/dL [facility] Protein, pl 5.2(L) 6.5 - 8.5 g/dL [facility] Albumin 3.4(L) 3.5 - 5.0 g/dL [facility] Alk phos 70 40 - 130 Units/L [facility] ALT 17 7 - 45 Units/L [facility] AST 24 10 - 45 Units/L [facility] Blood 02/26/2025 5:46 AM CDT 02/26/2025 6:09 AM CDT us Heri Parikh MD LAB BLOOD ORDERABLES Final Re sult Performing Organization Address City/[facility]/ZIP Co de Phone Number [address] [place] [address] * POCT glucose (02/26/2025 3:26 AM CDT) Glucose, POC 108 70 - 199 mg/dL Glucose comment 1 Use This Result [facility] Blood 02/26/2025 3:26 AM CDT 02/26/2025 3:26 AM CDT Lisa Matias MD LAB POCT ORDERABLES - DEVICE F inal Result Performing Organization Address City/[facility]/ZIP Co de Phone Number [address] [place] [address] * POCT glucose (02/25/2025 8:36 PM CDT) Glucose, POC 151 70 - 199 mg/dL Glucose comment 1 Use This Result [facility] Blood 02/25/2025 8:36 PM CDT 02/25/2025 8:36 PM CDT Lisa Matias MD LAB POCT ORDERABLES - DEVICE F inal Result Performing Organization Address [facility] Co de Phone Number [address] [place] [address] * POCT glucose (02/25/2025 5:35 PM CDT) [facility] Glucose, POC 168 70 - 199 mg/dL Blood 02/25/2025 5:35 PM CDT 02/25/2025 5:35 PM CDT Lisa Matias MD LAB POCT ORDERABLES - DEVICE F inal Result Performing Organization Address [facility] de Phone Number [address] [address] * TRANSTHORACIC ECHO (TTE) COMPLETE W DOPPLER/CF WO CONTRAST (02/25/2025 2:52 PM CDT) [facility] EF Mod BP 71 % CONS SCIMAGE Anatomical Region Laterality Modality Ultrasound 02/25/2025 2:04 PM CDT Narrative 02/25/2025 4:44 PM CDT Transthoracic Echocardiographic Report Patient Name: LESLIE VALENTINO A : 1955 (69y 9m) Gender: F Study Date: 02/25/2025 02:04:16 PM Ht(Inch): 64 Wt(Lb): 108 BSA: 1.49 [employer] Representative: Allyson Richard RDCS Location: [id number] Order Provider: LISA MATIAS Heart Rate: 68 BMI: 18.54 BP: 94 / 62 Ref Provider: LISA MATIAS PROCEDURES: Echocardiographic Report: ([id number]) Transthoracic complete echo, 2D, spectral and tissue [...] PM Ht(Inch): 64 Wt(Lb): 108 BSA: 1.49 [employer] Representative: Allyson Richard RDCS Location: [id number] Order Provider:LISA MATIAS Heart Rate: 68 BMI: 18.54 BP: 94 / 62 Ref Provider: LISA MATIAS PROCEDURES: Echocardiographic Report: ([id number]) Transthoracic complete echo, 2D,spectral and tissue Doppler, [...] LV EDV Index 28.59 ml/m2 MV Decel [id number] msec ESV Mod BP 18.50 ml [ [...] CDT Lower Extremity Venous Report Patient Name: LESLEI VALENTINO A : 1955 (69y 9m) Gender: F Study Date: 02/25/2025 01:36:39 PM [employer] Representative: ASHWIN LAUREANO Location: [id number] Order Provider: LISA MATIAS Quality: Adequate Ref [...] Gender: F Study Date: 02/25/2025 01:36:39 PM [employer] Representative: ASHWIN LAUREANO Location: [id number] Order Provider: LISA MATIAS Quality: Adequate Ref [...] Brett Brunson MD 02/26/2025 12:19:29 PM CDT us Lisa Matias MD IMG US PROCEDURES Final Result * POCT glucose (02/25/2025 11:30 AM CDT) Glucose, POC 112 70 - 199 mg/dL Blood 02/25/2025 11:3 0 AM CDT 02/25/2025 11:30 AM CDT us Lisa Matias MD LAB POCT ORDERABLES - DEVICE F inal Result [facility] [address] [facility] [place] [address] * POCT glucose (02/25/2025 8:55 AM CDT) Glucose, POC 122 70 - 199 mg/dL Blood 02/25/2025 8:55 AM CDT 02/25/2025 8:55 AM CDT us Lisa Matias MD LAB POCT ORDERABLES - DEVICE F inal Result JOSÉ MIGUEL [address] [facility] [place] [address] * US Gallbladder (02/25/2025 7:34 AM CDT) [...] 7:44 AM - Electronically signed by Kasey Saavge D.O. PS T: Report ID: [id number] Reading Location: [id number] Procedure Note Kasey Savage DO - 02/25/2025 [...] Kasey Savage D.O. PS T: Report ID: [id number] Reading Location: [place] [id number] us Danis Joe DO IMG US PROCEDURES [...] BLOOD ORDERABLES Final Res ult JOS[facility] MIGUEL [address] [place] [address] * (ABNORMAL) Differential, auto (02/25/2025 6:29 AM CDT) Neutrophil abs 4.30 1.50 - 6.50 K/cumm Imm gran abs 0.01 0.00 - 0.10 K/cumm [facility] Lymphocyte abs 0.69(L) 0.80 - 3.30 K/cumm [facility] Monocyte abs 0.70 0.20 - 0.80 K/cumm [facility] Eosinophil abs 0.02 0.00 - 0.50 K/cumm [facility] Basophil abs 0.03 0.00 - 0.10 K/cumm [facility] Neutrophil pct 74.8 % [facility] Comment: Interpretive Data Percent cell count reference ranges are not reported, since discordance with absolute values may lead to misinterpretation of CBC data. Current Interpretive Data was last revised on 2018. Imm gran pct 0.2 % [facility] Comment: Interpretive Data Percent cell count reference ranges are not reported, since discordance with absolute values may lead to misinterpretation of CBC data. Current Interpretive Data was last revised on 2018. Lymphocyte pct 12.0 % [facility] Comment: Interpretive Data Percent cell count reference ranges are not reported, since discordance with absolute values may lead to misinterpretation of CBC data. Current Interpretive Data was last revised on 2018. Monocyte pct 12.2 % [facility] Comment: Interpretive Data Percent cell count reference ranges are not reported, since discordance with absolute values may lead to misinterpretation of CBC data. Current Interpretive Data was last revised on 2018. Eosinophil pct 0.3 % [facility] Comment: Interpretive Data Percent cell count reference ranges are not reported, since discordance with absolute values may lead to misinterpretation of CBC data. Current Interpretive Data was last revised on 2018. Basophil pct 0.5 % [facility] Comment: Interpretive Data Percent cell count reference ranges are not reported, since discordance with absolute values may lead to misinterpretation of CBC data. Current Interpretive Data was last revised on 2018. Blood 02/25/2025 6:29 AM CDT 02/25/2025 6:40 AM CDT us Lisa Matias MD LAB BLOOD ORDERABLES Final Res ult Performing Organization Address [facility] Co de Phone Number [facility]MISSAEL [address] [place] [address] * (ABNORMAL) CBC with auto differential (02/25/2025 6:29 AM CDT) [facility] WBC 5.75 3.80 - 9.90 K/cumm Hgb 8.8(L) 11.9 - 15.5 g/dL [facility] Hct 27.3(L) 35.6 - 45.5 % [facility] Plt 191 150 - 400 K/cumm [facility] MPV 9.8 9.1 - 12.3 fL [facility] RBC 3.34(L) 3.90 - 5.20 M/cumm [facility] MCV 81.7 81.3 - 96.4 fL [facility] MCH 26.3(L) 27.1 - 33.3 pg [facility] MCHC 32.2(L) 32.3 - 35.7 g/dL [facility] RDW CV 19.9(H) 11.1 - 14.9 % [facility] RDW SD 58.7(H) 35.7 - 48.1 fL [facility] NRBC abs 0.00 0.00 - 0.01 K/cumm [facility] Blood 02/25/2025 6:29 AM CDT 02/25/2025 6:40 AM CDT us Heri Parikh MD LAB BLOOD ORDERABLES Final Re sult Performing Organization Address City/[facility]/ZIP Co de Phone Number [address] [place] [address] * (ABNORMAL) Comprehensive metabolic panel (02/25/2025 6:29 AM CDT) [facility] Sodium 135 135 - 145 mmol/L Potassium, pl 4.4 3.3 - 4.9 mmol/L [facility] Chloride 107 97 - 110 mmol/L [facility] CO2 21(L) 22 - 32 mmol/L [facility] Anion gap 7 2 - 15 mmol/L [facility] BUN 14 6 - 25 mg/dL [facility] Creatinine 0.88 0.60 - 1.10 mg/dL [facility] Glucose 119 70 - 199 mg/dL [facility] Comment: Interpretive Data Fasting glucose >/= 126 [...] 2022. Calcium 8.2(L) 8.5 - 10.3 mg/dL [facility] Bilirubin, total 0.7 0.1 - 1.2 mg/dL [facility] Protein, pl 5.6(L) 6.5 - 8.5 g/dL [facility] Albumin 3.7 3.5 - 5.0 g/dL [facility] Alk phos 60 40 - 130 Units/L [facility] ALT 17 7 - 45 Units/L [facility] AST 25 10 - 45 Units/L [facility] Blood 02/25/2025 6:29 AM CDT 02/25/2025 6:41 AM CDT Heri Parikh MD LAB BLOOD ORDERABLES Final Re sult [facility] [address] [facility] [place] [address] * POCT glucose (02/25/2025 4:29 AM CDT) [facility] Signature Glucose, POC 145 70 - 199 mg/dL Glucose comment 1 Use This Result [facility] Blood 02/25/2025 4:29 AM CDT 02/25/2025 4:29 AM CDT us Lisa Matias MD LAB POCT ORDERABLES - DEVICE F inal Result Performing Organization Address [facility]/ZIP Co de Phone Number [address] [place] [address] * POCT glucose (02/25/2025 12:48 AM CDT) Glucose, POC 152 70 - 199 mg/dL Glucose comment 1 Use This Result JOSÉ MIGUEL Blood 02/25/2025 12:4 8 AM CDT 02/25/2025 12:48 AM CDT us Lisa Matias MD LAB POCT ORDERABLES - DEVICE F inal Result Performing Organization Address [facility] de Phone Number [address] [place] [address] * POCT glucose (02/24/2025 7:53 PM CDT) Glucose, POC 192 70 - 199 mg/dL Glucose comment 1 Use This Result JOSÉ MIGUEL Blood 02/24/2025 7:53 PM CDT 02/24/2025 7:53 PM CDT Lisa Matias MD LAB POCT ORDERABLES - DEVICE F inal Result Performing Organization Address [facility] Co de Phone Number [address] [place] [address] * Lactate (02/24/2025 3:55 PM CDT) Lactate 0.9 0.7 - 2.0 mmol/L Blood 02/24/2025 3:55 PM CDT 02/24/2025 4:05 PM CDT Result Charlette Matias MD LAB BLOOD ORDERABLES Final Res ult Performing Organization Address [facility]/ZIP Co de Phone Number [address] [place] [address] * POCT glucose (02/24/2025 3:45 PM CDT) Glucose, POC 92 70 - 199 mg/dL Blood 02/24/2025 3:45 PM CDT 02/24/2025 3:45 PM CDT us Lisa Matias MD LAB POCT ORDERABLES - DEVICE F inal Result JOSÉ MIGUEL [address] [facility] [place] [address] * CT Abdomen Pelvis WO Contrast (02/24/2025 [...] - Electronically signed by Doug Erazo M.D. LC T: Report ID: [id number] Reading Location: [place] [address] Procedure Note Nicole Erazo MD - 02/24/2025 [...] by Doug Erazo M.D. T: Report ID: [id number] Reading Location: [place] [address] Lisa Matias MD IMG CT PROCEDURES Final Result * Blood culture Blood (02/24/2025 1:00 PM CDT) Report Final Report: No growth Comment:Testing performed by : [facility], [address] [facility] [place]., [address] Blood 02/24/2025 1:00 PM CDT 02/24/2025 6:03 PM CDT [facility] 03/01/2025 7:00 AM CDT Collection->Peripheral 1. Blood [...] performance characteristics have been verified by the [facility] Microbiology Laboratory. For questions about this culture, contact the Microbiology Laboratory at [phone]. Interpretive data was last revised on 24. Danis Joe DO LAB MICROBIOLOGY - GENERAL ORDERABLES Final Result JOSÉ MIGUEL [address] [facility] [place] [address] * Blood culture Blood (02/24/2025 1:00 PM CDT) Report Final Report: No growth Comment:Testing performed by : [facility], [address] [facility], [place]., [address] Blood 02/24/2025 1:00 PM CDT 02/24/2025 6:03 PM CDT [facility] JOSÉ MIGUEL [facility] 03/01/2025 7:00 AM CDT Collection->Peripheral 1. Blood [...] performance characteristics have been verified by the [facility] Microbiology Laboratory. For questions about this culture, contact the Microbiology Laboratory at [phone]. Interpretive data was last revised on 24. [facility] - [facility]AL ORDERABLES Final Result Performing Organization Address [facility] Co de Phone Number JOSÉ MIGUEL [address] [address] * Troponin T high-sensitivity 4-hour (02/24/2025 12:31 PM CDT) Trop T hs 9 <=14 ng/L Comment: Interpretive Data For further hscTnT resources including the diagnostic algorithm and an aid in interpretation, copy and paste this link: https://nrl.testcatalog.org/show/hsTrop Current Interpretive Data last revised 2020. Trop T hs delta See Comment ng/L JOSÉ MIGUEL Comment:Inappropriate collec tion time to report a delta. Trop T hs pct delta See Comment % JOSÉ MIGUEL Comment:Inappropriate collec tion time to report a delta. Trop T hs interp See Comment JOSÉ MIGUEL Comment:Inappropriate collec tion time to report a delta. Blood 02/24/2025 12:3 1 PM CDT 02/24/2025 12:34 PM CDT Danis Joe LAB BLOOD ORDERABLES Final Result Performing Organization Address [facility] Co de Phone Number JOSÉ MIGUEL [address] [address] * Lipase (02/24/2025 12:31 PM CDT) Lipase 16 10 - 99 Units/L Blood 02/24/2025 12:3 1 PM CDT 02/24/2025 12:34 PM CDT Lisa Matias MD LAB BLOOD ORDERABLES Final Res ult JOSÉ MIGUEL [address] [facility] [place] [address] * CT Chest PE (CTA) W Contrast [...] Delta Armstrong M.D. AT T: Report ID: [id number] Reading Location: [place] [address] Procedure Note Delta Armstrong MD - 02/24/2025 [...] Delta Armstrong M.D. AT T: Report ID: [id number] Reading Location: [place] [address] us Danis Joe DO IMG CT PROCEDURES Final Res ult * Troponin T high-sensitivity 2-hour (02/24/2025 9:07 AM CDT) Trop T hs 9 <=14 ng/L Comment: Interpretive Data For further hscTnT resources including the diagnostic algorithm and an aid in interpretation, copy and paste this link: https://nrl.testcatalog.org/show/hsTrop Current Interpretive Data last revised 2020. Trop T hs delta 0 ng/L JOSÉ MIGUEL DWYER Trop T hs interp Insignificant JOSÉ MIGUEL DWYER Blood 02/24/2025 9:07 AM CDT 02/24/2025 9:10 AM CDT Danis Joe DO LAB BLOOD ORDERABLES Final Result JOSÉ MIGUEL DWYER [address] [facility] [place] [address] * (ABNORMAL) D-dimer, quantitative (02/24/2025 9:07 AM [...] 68, VTE cut-off 680 ng/ml FEU. References; Schelvi HT et al. Brit Med J. 2013;346:f2492. Bobby et al. Annals Int Med. 2015;163:701-11. Current interpretive data was last revised on 2019. Blood 02/24/2025 9:07 AM CDT 02/24/2025 9:09 AM CDT Danis Joe DO LAB BLOOD ORDERABLES Final Result JOSÉ MIGUEL [address] [facility] Department of Laboratories [place], [place] [id number] * ECG 12 lead (02/24/2025 8:46 AM CDT) Pathologist [facility] Ventricular Rate EKG/Min 64 BPM [facility] Atrial Rate 64 BPM [facility] CO-Interval (MSEC) 178 ms [facility] QRS-Interval (MSEC) 118 ms [facility] QT-Interval (MSEC) 450 ms [facility] QTc 464 ms [facility] P [place] 59 degrees [facility] R [place] -21 degrees [facility] T [place] 69 degrees [facility] Diagnosis Normal sinus rhythm Anteroseptal infarct (cited on or before 25-FEB-2024) Abnormal ECG When compared with ECG of 24-FEB-2025 06:40, Serial changes of Anteroseptal infarct Present Confirmed by CHANDRAKANT REINOSO M.D. ([id number]) on 02/24/2025 1:59:47 PM [facility] 02/24/2025 8:46 AM CDT 02/24/2025 1:59 PM CDT us Danis Joe DO ECG ORDERABLES Final Resul t [facility] * XR Chest 1 Vw Portable (if [...] signed by Alfonso MARTIN T: Report ID: [id number] Reading Location: [id number] Procedure Note Alfonso Finch MD - 02/24/2025 [...] 7:49 AM - Electronically signed by Alfonso Finch M.D. NS T: Report ID: [id number] Reading Location: [place] [address] us Danis Joe DO IMG XR PROCEDURES Final Res ult * Troponin T high-sensitivity series (baseline, 2hr, 4hr, 6hr) (02/24/2025 6:56 AM CDT) Pathologist [facility] Trop T hs 9 <=14 ng/L Comment: Interpretive Data For further hscTnT resources including the diagnostic algorithm and an aid in interpretation, copy and paste this link: https://nrl.testcatalog.org/show/hsTrop Current Interpretive Data last revised 2020. Blood 02/24/2025 6:56 AM CDT 02/24/2025 6:59 AM CDT Danis Joe DO LAB BLOOD ORDERABLES Final Result [facility] [address] [facility] [place] [address] * eGFR (02/24/2025 6:56 AM CDT) Pathologist [facility] eGFR 61 >=60 mL/min/1. 73 m2 Comment: [...] CDT 02/24/2025 6:59 AM CDT Danis Joe DO LAB BLOOD ORDERABLES Final Result [place] [id number] [facility] [place] [address] * Differential, auto (02/24/2025 6:56 AM CDT) Pathologist [facility] Neutrophil abs 5.83 1.50 - 6.50 K/cumm Imm gran abs 0.01 0.00 - 0.10 K/cumm [facility] Lymphocyte abs 1.01 0.80 - 3.30 K/cumm [facility] Monocyte abs 0.62 0.20 - 0.80 K/cumm [facility] Eosinophil abs 0.07 0.00 - 0.50 K/cumm [facility] Basophil abs 0.03 0.00 - 0.10 K/cumm [facility] Neutrophil pct 77.1 % [facility] Comment: Interpretive Data Percent cell count reference ranges are not reported, since discordance with absolute values may lead to misinterpretation of CBC data. Current Interpretive Data was last revised on 2018. Imm gran pct 0.1 % [facility] Comment: Interpretive Data Percent cell count reference ranges are not reported, since discordance with absolute values may lead to misinterpretation of CBC data. Current Interpretive Data was last revised on 2018. Lymphocyte pct 13.3 % [facility] Comment: Interpretive Data Percent cell count reference ranges are not reported, since discordance with absolute values may lead to misinterpretation of CBC data. Current Interpretive Data was last revised on 2018. Monocyte pct 8.2 % [facility] Comment: Interpretive Data Percent cell count reference ranges are not reported, since discordance with absolute values may lead to misinterpretation of CBC data. Current Interpretive Data was last revised on 2018. Eosinophil pct 0.9 % [facility] Comment: Interpretive Data Percent cell count reference ranges are not reported, since discordance with absolute values may lead to misinterpretation of CBC data. Current Interpretive Data was last revised on 2018. Basophil pct 0.4 % [facility] Comment: Interpretive Data Percent cell count reference ranges are not reported, since discordance with absolute values may lead to misinterpretation of CBC data. Current Interpretive Data was last revised on 2018. Blood 02/24/2025 6:56 AM CDT 02/24/2025 6:58 AM CDT us Danis Joe DO LAB BLOOD ORDERABLES Final Result [place] [id number] [facility] [place] [address] * (ABNORMAL) CBC with auto differential (02/24/2025 6:56 AM CDT) WBC 7.57 3.80 - 9.90 K/cumm Hgb 10.8(L) 11.9 - 15.5 g/dL [facility] Hct 33.0(L) 35.6 - 45.5 % [facility] Plt 270 150 - 400 K/cumm [facility] MPV 9.3 9.1 - 12.3 fL [facility] RBC 4.19 3.90 - 5.20 M/cumm [facility] MCV 78.8(L) 81.3 - 96.4 fL [facility] MCH 25.8(L) 27.1 - 33.3 pg [facility] MCHC 32.7 32.3 - 35.7 g/dL [facility] RDW CV 19.4(H) 11.1 - 14.9 % [facility] RDW SD 55.8(H) 35.7 - 48.1 fL [facility] NRBC abs 0.00 0.00 - 0.01 K/cumm [facility] Blood Venous blood specimen / Unknown 02/24/2025 6:56 AM CDT 02/24/2025 6:58 AM CDT Danis Joe DO LAB BLOOD ORDERABLES Final Result [facility] [address] [facility] [place] [address] * (ABNORMAL) Comprehensive metabolic panel (02/24/2025 6:56 AM CDT) Sodium 134(L) 135 - 145 mmol/L Potassium, pl 3.6 3.3 - 4.9 mmol/L [facility] Chloride 99 97 - 110 mmol/L [facility] CO2 22 22 - 32 mmol/L [facility] Anion gap 13 2 - 15 mmol/L [facility] BUN 14 6 - 25 mg/dL [facility] Creatinine 1.00 0.60 - 1.10 mg/dL [facility] Glucose 126 70 - 199 mg/dL [facility] Comment: Interpretive Data Fasting glucose >/= 126 [...] 2022. Calcium 9.5 8.5 - 10.3 mg/dL [facility] Bilirubin, total 0.7 0.1 - 1.2 mg/dL [facility] Protein, pl 7.1 6.5 - 8.5 g/dL [facility] Albumin 4.6 3.5 - 5.0 g/dL [facility] Alk phos 70 40 - 130 Units/L [facility] ALT 25 7 - 45 Units/L [facility] AST 38 10 - 45 Units/L [facility] Blood 02/24/2025 6:56 AM CDT 02/24/2025 6:59 AM CDT [facility] BLOOD ORDERABLES Final Result Performing Organization Address City/[facility] Co de Phone Number [facility]NOTE 3[facility] [address] [facility] [place] [address] * ECG 12 lead (02/24/2025 6:40 AM CDT) Ventricular Rate EKG/Min 64 BPM [facility] Atrial Rate 64 BPM [facility] CO-Interval (MSEC) 174 ms [facility] QRS-Interval (MSEC) 118 ms [facility] QT-Interval (MSEC) 428 ms [facility] QTc 441 ms [facility] P [place] 49 degrees [facility] R [place] -40 degrees [facility] T [place] 90 degrees [facility] Diagnosis Normal sinus rhythm Possible Left atrial enlargement Left axis deviation Inferior infarct , age undetermined Anteroseptal infarct (cited on or before 25-FEB-2024) Confirmed by CHANDRAKANT REINOSO M.D. ([id number]) on 02/24/2025 2:01:02 PM [facility] 02/24/2025 6:40 AM CDT 02/24/2025 2:01 PM CDT Danis Joe DO ECG ORDERABLES Final Resul t Performing Organization Address [facility]/ZIP Co de Phone Number [facility] * Iron profile w/ IBC (02/12/2025 8:42 AM CDT) Iron Bind.Cap.(TIBC) 329 250 - 450 ug/dL [facility] - 01 UIBC 262 118 - 369 ug/dL [facility] - 01 Iron 67 27 - 139 ug/dL [facility] - 01 Iron saturation 20 15 - 55 % [facility] - 01 Blood 02/12/2025 8:42 AM CDT 02/12/2025 Narrative [facility] - 02/13/2025 6:07 AM CDT Performed at: [address] [place] [address] [id number] Appointment Setter: Miguel Morris PhD, Phone: [phone] Ba Mae MD LAB BLOOD ORDERABL ES Final Result Performing Organization Address [facility] Co de Phone Number [facility] - * Ferritin (02/12/2025 8:42 AM CDT) [facility] Ferritin 24 15 - 150 ng/mL [facility] - 01 Blood 02/12/2025 8:42 AM CDT 02/12/2025 Narrative [facility] - 02/13/2025 6:07 AM CDT Performed at: [address] [place] [address] [id number] Appointment Setter: Miguel Morris PhD, Phone: [phone] Ba Mae MD LAB BLOOD ORDERABL ES Final Result Performing Organization Address [facility] Co de Phone Number [facility] - * (ABNORMAL) CBC with auto differential (02/12/2025 8:41 AM CDT) [facility] WBC 4.0 3.4 - 10.8 x10E3/uL [facility] [...] - 02/13/2025 6:07 AM CDT Performed at: - [address] [id number] Appointment Setter: Miguel Morris PhD, Phone: [phone] Ba Mae MD LAB BLOOD ORDERABL ES Final Result [facility] - * Dexa Axial Skeleton Bone Density 1 [...] of taking hormone replacement therapy and calcium. 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 TW: TW Report ID: [id number] Reading Location: [id number] Procedure Note Sherita Garcia MD - 07/10/2024 EXAM DESCRIPTION: DEXA AXIAL SKELETON BONE DENSITY 1 OR MORE SITES REASON FOR STUDY: 69 y/o year old F with given history of: Post menopausal status. History of taking hormone replacement therapy andcalcium. 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 02/27/2024 Insurance MEDICARE [facility] MEDICARE SUPPLEMENT INSURANCE MEDICARE [employer] MEDICARE SUPPLEMENT INSURANCE Advance Directives For more information, please contact: [phone] * Full Code (Latest Code Status on File) Date Activated Date Inactivated Comments 02/24/2025 1:51 PM 03/01/2025 7:38 PM * Full Code Date Activated Date Inactivated Comments 03/18/2024 5:03 PM 03/21/2024 7:39 PM * Full Code Date Activated Date Inactivated Comments 03/02/2024 2:50 PM 03/07/2024 3:44 PM * Full Code Date Activated Date Inactivated Comments 02/25/2024 12:43 PM 02/29/2024 6:06 PM Care Teams [employer] Mixer Relationship Specialty Start Date End Date Gabriel Weldon DO [address] [facility] [address] [place] [address] PCP - General Internal Medicine 02/28/25
== END 2025-04-17 09:04 | disposition home or self-care (01) ==
PROVIDERS: PCP Internal Medicine; Visit Provider Internal Medicine
DX: R07.9 Chest pain, unspecified (principal); Z95.0 Presence of cardiac pacemaker
CPT/HCPCS: 71046

== ENCOUNTER 2025-05-02 13:39 | Outpatient (RCR) | payer MEDICARE, SELFPAY | END 2025-07-22 08:46 | disposition home or self-care (01) | LOC: ANHDMC 13:39 | PROVIDERS: PCP Internal Medicine; Visit Provider Internal Medicine | DX: E11.9 Type 2 diabetes mellitus without complications (principal); Z71.89 Other specified counseling | CPT/HCPCS: G0109 ==

== ENCOUNTER 2025-05-21 10:25 | Outpatient (CLI) | payer MEDICARE, SELFPAY ==
--- NOTE | ~2025-05-21 | MM_ITS ---
EXAMINATION: MM screening wyatt BI w fatmata HISTORY: Screening TECHNIQUE: Craniocaudal and mediolateral oblique 3-D tomosynthesis images were obtained and synthetic 2-D images were generated. CAD analysis was submitted and interpreted. COMPARISON: Comparison to multiple prior studies sequentially, with oldest reviewed study dated 03/10. BREAST PARENCHYMAL COMPOSITION: There are scattered areas of fibroglandular density. FINDINGS: There is no evidence of suspicious mass, calcification, or architectural distortion to sug gest malignancy in either breast. IMPRESSION: 1. No mammographic evidence of malignancy. 2. Recommend routine screening mammography in one year. BI-RADS Category 1: Negative Reviewed, dictated and finalized at location B.
== END 2025-05-21 10:26 | disposition home or self-care (01) ==
LOC: MICIMG 10:26
PROVIDERS: PCP Obstetrics & Gynecology; Visit Provider Internal Medicine
DX: Z12.31 Encounter for screening mammogram for malignant neoplasm of breast (principal)
CPT/HCPCS: 77063; 77067